=== PATIENT | male | born 1940 | race Caucasian/White ===

== ENCOUNTER 2016-09-06 09:11 | Outpatient (CLI) | payer MEDICARE, OTHER ==
[2016-09-06] MEDS ORDERED: BARIUM SULFATE 176 GM BOTTLE PO ONE (10:12)
[2016-09-06] MEDS ORDERED: BARIUM SULFATE 135 ML BOTTLE PO ONE (10:12)
== END 2016-09-06 09:12 | disposition home or self-care (01) ==
DX: K21.9 Gastro-esophageal reflux disease without esophagitis (principal); K22.8 Other specified diseases of esophagus
CPT/HCPCS: 74220; A9270

== ENCOUNTER 2016-09-29 09:00 | Outpatient (CLI) | payer MEDICARE, OTHER | END 2016-09-29 09:01 | disposition home or self-care (01) | DX: I10 Essential (primary) hypertension (principal); I25.10 Atherosclerotic heart disease of native coronary artery without angina pectoris; I48.91 Unspecified atrial fibrillation; C34.90 Malignant neoplasm of unspecified part of unspecified bronchus or lung; D12.6 Benign neoplasm of colon, unspecified ==

== ENCOUNTER 2017-02-23 09:58 | Outpatient (CLI) | payer MEDICARE, OTHER ==
[2017-02-23 10:50] LABS: ALBUMIN/GLOBULIN RATIO 1.4 (1.0-2.2); BILIRUBIN,TOTAL 0.8 mg/dL (0.2-1.0); BUN - BLOOD UREA NITROGEN 22 mg/dL (6-20); CALCIUM 9.1 mg/dL (8.5-10.3); CARBON DIOXIDE - CO2 30 mmol/L (21-32); CHLORIDE 105 mmol/L (101-111); CHOL/HDL RATIO 2.3 (<5.0); CHOLESTEROL 102 mg/dL; CREATININE 0.8 mg/dL (0.6-1.2); GFR - MDRD 94 (>89); GLUCOSE 122 mg/dL (70-100); HDL CHOLESTEROL 44 mg/dL; POTASSIUM 4.2 mmol/L (3.5-5.0); SODIUM 141 mmol/L (135-145); TOTAL PROTEIN 6.9 g/dL (6.7-8.2); TRIGLYCERIDES 74 mg/dL; VLDL CHOLESTEROL 15 mg/dL
== END 2017-02-23 09:59 | disposition home or self-care (01) ==
LOC: LAB 09:58
PROVIDERS: ATTEND Internal Medicine Cardiovascular Disease
DX: Z01.818 Encounter for other preprocedural examination (principal); I77.9 Disorder of arteries and arterioles, unspecified; I10 Essential (primary) hypertension; E78.2 Mixed hyperlipidemia
CPT/HCPCS: 36415; 80053; 80061

== ENCOUNTER 2017-07-18 09:46 | Outpatient (CLI) | payer MEDICARE, OTHER ==
[2017-07-18 10:30] LABS: CALCIUM 9.6 mg/dL (8.5-10.3); CREATININE 0.7 mg/dL (0.6-1.2); POTASSIUM 4.1 mmol/L (3.5-5.0)
== END 2017-07-18 09:47 | disposition home or self-care (01) ==
LOC: LAB 09:46
PROVIDERS: ATTEND Internal Medicine Cardiovascular Disease
DX: I77.810 Thoracic aortic ectasia (principal); Z95.1 Presence of aortocoronary bypass graft; I48.0 Paroxysmal atrial fibrillation; I10 Essential (primary) hypertension; I77.9 Disorder of arteries and arterioles, unspecified; E78.2 Mixed hyperlipidemia
CPT/HCPCS: 36415; 80048

== ENCOUNTER 2019-04-09 09:43 | Outpatient (CLI) | payer MEDICARE, OTHER ==
[2019-04-09 12:51] LABS: ALBUMIN 3.7 g/dL (3.2-5.5); ALBUMIN/GLOBULIN RATIO 1.2 (1.0-2.2); ALKALINE PHOSPHATASE 67 IU/L (42-121); ALT ALANINE AMINOTRANSFERASE 40 IU/L (10-60); AST ASPARTATE AMINOTRANSFERASE 36 IU/L (10-42); BILIRUBIN,TOTAL 0.4 mg/dL (0.2-1.0); BUN - BLOOD UREA NITROGEN 28 mg/dL (6-20); CALCIUM 8.9 mg/dL (8.5-10.3); CARBON DIOXIDE - CO2 26 mmol/L (21-32); CHLORIDE 109 mmol/L (101-111); CHOLESTEROL 113 mg/dL; CREATININE 0.8 mg/dL (0.6-1.2); GFR - MDRD 94 (>89); GLUCOSE 149 mg/dL (70-100); HDL CHOLESTEROL 48 mg/dL; LDL CHOLESTEROL,CALCULATED 54 mg/dL; SODIUM 143 mmol/L (135-145); TOTAL PROTEIN 6.8 g/dL (6.7-8.2); VLDL CHOLESTEROL 11 mg/dL
[2019-04-09 12:52] LABS: CHOL/HDL RATIO 2.4 (<5.0); LDL/HDL RATIO 1.1 (<3.6)
== END 2019-04-09 23:59 | disposition home or self-care (01) ==
LOC: LAB.WCP 09:43
PROVIDERS: ATTEND Internal Medicine Cardiovascular Disease
DX: I10 Essential (primary) hypertension (principal)
CPT/HCPCS: 36415; 80053; 80061; 83721

== ENCOUNTER 2019-04-28 14:03 | Outpatient (CLI) | payer MEDICARE, OTHER | END 2019-04-28 23:59 | disposition home or self-care (01) | LOC: LAB.WCP 14:03 | PROVIDERS: ATTEND Specialist | DX: C61 Malignant neoplasm of prostate (principal) | CPT/HCPCS: 36415; 84153 ==

== ENCOUNTER 2019-05-05 13:03 | Outpatient (CLI) | payer MEDICARE, OTHER | END 2019-05-05 13:04 | disposition short-term general hospital (02) | LOC: EMS 13:03 | PROVIDERS: ATTEND Surgery | DX: R06.02 Shortness of breath (principal); R42 Dizziness and giddiness | CPT/HCPCS: A0425; A0429 ==

== ENCOUNTER 2019-05-28 11:39 | Outpatient (CLI) | payer MEDICARE, OTHER ==
[2019-05-28] MEDS ORDERED: IOVERSOL 320 100 ML VIAL IVP ONE ×2 (12:34→12:50)
--- NOTE | 2019-05-28 14:41 | CT Report ---
Reason: RT CAROTID STENOSIS Procedure Date: 05/28/2019 Accession Number: [id number] / [id number] Procedure: CT - ANGIO NECK W CPT Code: FULL RESULT: EXAM: CT ANGIOGRAM NECK EXAM DATE: 05/28/2019 12:44 PM. CLINICAL HISTORY: Right CAROTID STENOSIS. COMPARISON: None. TECHNIQUE: Routine axial helical imaging was performed from the skull base through the aortic arch. Reconstructions: Routine multiplanar 3D MIP reconstructions. IV Contrast: OPTI 320 80ML. Evaluation of arterial stenosis is based on a NASCET method of measurement. In accordance with CT protocol optimization, one or more of the following dose reduction techniques were utilized for this exam: automated exposure control, adjustment of mA and/or KV based on patient size, or use of iterative reconstructive technique. FINDINGS: Right Carotid: The proximal to mid common carotid is normal in caliber. There is dense calcification involving distal CCA and extending into the proximal right ICA with approximately 90% stenosis of the proximal right ICA (measurement difficult due to dense calcification). There is severe narrowing of the right ECA origin as well. Left Carotid: The left common carotid artery is normal in caliber. There is eccentric calcification of the distal left CCA and proximal ICA. There is 30% narrowing of the proximal left ICA. Vertebrals: The vertebrobasilar system shows no stenoses. Intracranial Circulation: There are calcifications of bilateral carotid siphons. There is moderate narrowing of right cavernous ICA. There is mild narrowing of left cavernous ICA. Intracranal vessels otherwise unremarkable. No high-grade intracranial stenosis. No aneurysm. Posterior communicating arteries are not visualized. Other: Emphysematous changes at bilateral lung apices. Mild degenerative changes of cervical spine. Sternal wires. Soft tissues of neck unremarkable. IMPRESSION: 1. Approximately 90% proximal right ICA stenosis. 2. 30% proximal left ICA stenosis. 3. No vertebral stenosis. 4. Moderate narrowing of right cavernous ICA and mild narrowing of left cavernous ICA segments. 5. Emphysema. RADIA
== END 2019-05-28 11:40 | disposition home or self-care (01) ==
LOC: DI 11:39
PROVIDERS: ATTEND Surgery Vascular Surgery
DX: I65.21 Occlusion and stenosis of right carotid artery (principal); I65.22 Occlusion and stenosis of left carotid artery; J43.9 Emphysema, unspecified
CPT/HCPCS: 70498; Q9967

== ENCOUNTER 2019-05-29 08:00 | Outpatient (CLI) | payer MEDICARE, OTHER | END 2019-05-29 23:59 | disposition home or self-care (01) | LOC: LAB.WCP 08:00 | PROVIDERS: ATTEND Specialist | DX: C61 Malignant neoplasm of prostate (principal) | CPT/HCPCS: 36415; 84153 ==

== ENCOUNTER 2019-07-15 16:30 | Outpatient (CLI) | payer MEDICARE, OTHER | END 2019-07-15 23:59 | disposition critical access hospital (66) | LOC: EMS 16:30 | PROVIDERS: ATTEND Surgery | DX: R47.81 Slurred speech (principal); R47.9 Unspecified speech disturbances | CPT/HCPCS: A0425; A0427 ==

== ENCOUNTER 2019-07-15 16:50 | Observation (INO) | payer MEDICARE, OTHER ==
--- NOTE | 2019-07-15 17:00 | ED Physician Documentation ---
PD HPI FOCAL NEURO - Stated complaint Stated Complaint: POSS CVA - History obtained from History obtained from: Patient, EMS - History of Present Illness Timing - onset: Today (79-year-old gentleman with history of coronary disease and CABG, presume A. fib with pacemaker in place on Xarelto usually. He was off the Xarelto for 3 days because today he had prostate seeds placed by Dr. Danielle at [facility]. That was this morning. Suddenly at 4:00 he started to have intermittent speech difficulties and noticed both legs tingling below the knees symmetrically.) Review of Systems Ten Systems: 10 systems reviewed and negative Constitutional: denies: Fever, Chills Cardiac: denies: Chest pain / pressure, Palpitations Respiratory: denies: Dyspnea, Cough PD PAST MEDICAL HISTORY - Past Medical History Cardiovascular: High cholesterol, Coronary artery disease, Atrial fibrillation, Other Respiratory: Pneumonia, Other Endocrine/Autoimmune: Type 2 diabetes GI: GERD : Benign prostate hypertrophy, Kidney stones HEENT: None Psych: None Musculoskeletal: None Derm: None - Past Surgical History General: Cholecystectomy, Appendectomy Cardiovascular: Lobectomy, Other HEENT: Cataracts - Present Medications Home Medications: Ambulatory Orders Medication Instructions Recorded Confirmed Cetirizine [ZyrTEC] 10 mg PO DAILY 04/16/13 05/14/19 Losartan Potassium [Cozaar] 25 mg PO DAILY 04/16/13 05/14/19 Rivaroxaban [Xarelto] 20 mg PO DAILY 01/15/14 05/14/19 Tamsulosin HCl [Flomax] 0.4 mg PO BID 01/16/14 05/14/19 Atorvastatin Calcium [Lipitor] 80 mg PO DAILY 10/21/14 05/14/19 C,E,Zinc,Copper 24/Om3/Lut/Katja 1 each PO DAILY 10/21/14 05/14/19 [Ocuvite Softgel] Chondroitin Sulfate A Sodium 1,200 mg PO DAILY 10/21/14 05/14/19 [Chondroitin Sulfate] amLODIPine [Norvasc] 5 mg PO DAILY 10/21/14 05/14/19 Aspirin [Adult Low Dose Aspirin EC] 81 mg PO DAILY 02/03/15 05/14/19 [place]-3S/Dha/Epa/Fish Oil [Fish 1 each PO DAILY 09/17/15 05/14/19 Oil 1,200 mg Softgel] Magnesium 250 mg PO BID 06/21/16 05/14/19 Albuterol Sulf [Ventolin Hfa 4 puffs INH DAILY 07/18/17 05/14/19 Inhaler] Ascorbic Acid [Vitamin C] 1 tab PO DAILY 07/18/17 05/14/19 Cholecalciferol (Vitamin D3) 1 cap PO DAILY 07/18/17 05/14/19 [Vitamin D3] Glucosamine HCl/Chondroitin [place] 1 tab PO DAILY 07/18/17 05/14/19 [Endur-Flex Sr Tablet] Iron Ag,Ps/C/Fa6/B12/Zn/SA/Sto 1 tab PO DAILY 07/18/17 05/14/19 [Niferex Tablet] Multivitamin [Multiple Vitamins] 1 tab PO DAILY 07/18/17 05/14/19 Pantoprazole [Protonix] 1 tab PO DAILY 07/18/17 05/14/19 Ubidecarenone [Co Q-10] 1 cap PO DAILY 07/18/17 05/14/19 - Allergies Allergies/Adverse Reactions: Allergies Allergy/AdvReac Type Severity Reaction Status Date / Time hydrocodone bitartrate * Allergy shakes, Verified 01/08/19 10:50 [From Vicodin] halucinasions - Social History Does the pt smoke?: No Smoking Status: Never smoker - Family History Family history: reports: Non contributory PD ED PE NORMAL - Vitals Vital signs reviewed: Yes - General General: Alert and oriented X 3, No acute distress - HEENT HEENT: PERRL, EOMI - Neck Neck: Supple, no meningeal sign, No bony TTP - Cardiac Cardiac: RRR, No murmur - Respiratory Respiratory: No respiratory distress, Clear bilaterally - Abdomen Abdomen: Non tender - Back Back: No CVA TTP, No spinal TTP - Derm Derm: Normal color, Warm and dry - Neuro Neuro: Alert and oriented X 3, Normal speech NIHSS - Time Time: 16:55 - Level of Consciousness Level of consciousness: (0) Alert, Keenly responsive LOC Questions: (0) Answers both Q's correct LOC Commands: (0) Performs both correctly - Gaze Best Gaze: (0) Normal - Visual Visual: (0) No loss - Facial Palsy Facial Palsy: (1) Minor paralysis (v mild right) - Motor Arms (both separate) Motor Arm (right): (0) No drift Motor Arm (left): (0) No drift - Motor Legs (both separate) Motor Leg (right): (0) No drift Motor Leg (left): (0) No drift - Limb Ataxia Limb Ataxia: (0) Absent - Sensory Sensory: (0) Normal - Best Language Best Language: (0) No aphasia - Dysarthria Dysarthria: (1) Uidu-jy-vpfhbvdq dysarthria (mild trouble with "[place]") - Extinction and Inattention (formally neg Extinction and inattention: (0) No abnormality - Total Score/Results Total Score/Result: 2 Results - Vitals Vitals: Vital Signs - 24 hr 07/15/19 07/15/19 17:12 17:33 Temperature 37.3 C Heart Rate 61 61 Respiratory 18 18 Rate Blood Pressure 134/55 H 147/70 H O2 Saturation 98 97 Oxygen O2 Source Room air - EKG (time done) 1712 Rate: Rate (enter#) (60) Rhythm: NSR (with PAC) [place]: Normal Intervals: LBBB QRS: Normal Ischemia: Normal ST segments Computer interpretation: Agree with computer - Labs Labs: Laboratory Tests 07/15/19 07/15/19 07/15/19 17:20 17:20 17:20 WBC 6.6 RBC 3.05 L Hgb 10.1 L Hct 29.9 L MCV 98.0 H MCH 33.1 H MCHC 33.8 RDW 12.6 Plt Count 234 MPV 9.7 Neut # (Auto) 4.4 Lymph # (Auto) 1.4 L [place] # (Auto) 0.6 Eos # (Auto) 0.1 Baso # (Auto) 0.0 Absolute Nucleated RBC 0.00 Nucleated RBC % 0.0 PT 13.0 H INR 1.2 Sodium 138 Potassium 3.9 Chloride 102 Carbon Dioxide 27 Anion Gap 9.0 BUN 27 H Creatinine 0.7 Estimated GFR (MDRD) 109 Glucose 125 H Calcium 9.0 Total Bilirubin 0.6 AST 28 ALT 27 Alkaline Phosphatase 52 Total Protein 6.7 Albumin 4.0 Globulin 2.7 Albumin/Globulin Ratio 1.5 Lipase 42 PD MEDICAL DECISION MAKING - ED course ED course: 79-year-old gentleman presents with strokelike symptoms, it sounds like they are kind of waxing and waning, no sensory findings, just very mild dysarthria and a very subtle right facial droop. Case test discussed by phone with Dr. Elizabeth at [facility] [place]. Given that he had a surgical procedure today and the stroke scale is very low and seems to be going away he recommended against TPA, just routine stroke management. He did recommend for aspirin. Recommended routine resuming anticoagulation in 1 week. On return from CT at about 5:10 PM his a aphasia had become much worse. Still no weakness in the periphery and the facial droop had not changed. The net technical architect noted that he scanned him recently and had significant stenoses in the carotids previously. Tele-stroke neurologist was re-paged for further discussion. Formal read of CT angiography of the neck dated May 28 of this year, approximately 90% proximal right ICA stenosis, 30% proximal left ICA stenosis, no vertebral stenosis, moderate narrowing of right cavernous ICA and mild narrowing of ICA. Emphysema was also noted. Spoke with Dr. Elizabeth again at 5:20 PM. Discussed the above prior CT angiography. Since is the contralateral side with the tight stenosis he did not recommend any changes to the above plan. Still no TPA. It does not look to my eye like there is a large vessel occlusion in the brain today. Awaiting formal reads. Departure - Departure Disposition: ED Place in Observation Clinical Impression: Cerebrovascular accident (CVA) Qualifiers: CVA mechanism: unspecified Qualified Code(s): I63.9 - Cerebral infarction, unspecified Condition: Fair
[2019-07-15] MEDS ORDERED: IOVERSOL 320 100 ML VIAL IVP ONE ×2 (17:13→17:14)
[2019-07-15] MEDS ORDERED: ASPIRIN 300 MG SUPP PR STA (17:21)
[2019-07-15 17:30] LABS: BASOPHILS % (AUTO) 0.5 %; EOSINOPHILS # (AUTO) 0.1 10^3/uL (0.0-0.7); EOSINOPHILS % (AUTO) 1.2 %; HGB - HEMOGLOBIN 10.1 g/dL (14.0-18.0); LYMPHOCYTES # (AUTO) 1.4 10^3/uL (1.5-3.5); LYMPHOCYTES % (AUTO) 21.4 %; MEAN CORPUSCULAR HEMOGLOBIN 33.1 pg (27.0-31.0); MEAN CORPUSCULAR HGB CONC 33.8 g/dL (32.0-36.0); MEAN PLATELET VOLUME 9.7 fL (7.4-11.4); MONOCYTES # (AUTO) 0.6 10^3/uL (0.0-1.0); MONOCYTES % (AUTO) 9.3 %; NEUTROPHILS # (AUTO) 4.4 10^3/uL (1.5-6.6); NEUTROPHILS % (AUTO) 67.3 %; PLT - PLATELET COUNT 234 10^3/uL (130-450); RED BLOOD COUNT 3.05 10^6/uL (4.70-6.10); RED CELL DISTRIBUTION WIDTH 12.6 % (12.0-15.0); WHITE BLOOD COUNT 6.6 x10^3/uL (4.8-10.8)
--- NOTE | 2019-07-15 17:34 | CT Report ---
Reason: CVA sx, speech diff Procedure Date: 07/15/2019 Accession Number: [id number] / [id number] Procedure: CT - Head W/O Stroke Protocol CPT Code: Final Report FULL RESULT: EXAM: CT HEAD EXAM DATE: 07/15/2019 05:06 PM. CLINICAL HISTORY: CVA sx, speech diff. COMPARISON: NECK ANGIO 05/28/2019 12:40 PM. TECHNIQUE: Multiaxial CT images were obtained from the foramen magnum to the vertex. Reformats: Sagittal and coronal. IV contrast: None. In accordance with CT protocol optimization, one or more of the following dose reduction techniques were utilized for this exam: automated exposure control, adjustment of mA and/or KV based on patient size, or use of iterative reconstructive technique. FINDINGS: Parenchyma: No intraparenchymal hemorrhage. No evidence of mass, midline shift, or CT findings of acute infarction. Beck-white differentiation is distinct. Moderate patchy periventricular hypodensity is noted, nonspecific but most likely due to chronic microvascular ischemia. Old lacunar type infarcts are visualized in the basal ganglia. Extraaxial Spaces: Normal for age. No subdural or epidural collections identified. Ventricles: Normal in size and position. Sinuses and Orbits: Imaged paranasal sinuses, orbits, and mastoids show no significant abnormality. Changes of cataract extraction are noted bilaterally. Bones: No evidence of fracture or calvarial defect. Other: Vascular calcification is visualized in the cavernous segments of the bilateral ICAs and proximal vertebral arteries. IMPRESSION: 1. No CT evidence of acute infarct or hemorrhage. CT is insensitive for detection of acute infarct. RADIA The critical test notification system was initiated by Dr. Irasema Roche at 05:13 PM on 07/15/2019. The above critical test findings were discussed with Butch Garcia by Dr. Irasema Roche at 05:16 PM on 07/15/2019.
[2019-07-15 17:37] LABS: INR 1.2 (0.8-1.2)
[2019-07-15] MEDS ORDERED: SODIUM CHLORIDE 0.9% 1,000 ML IV ONE (17:39)
--- NOTE | 2019-07-15 17:42 | CT Report ---
Reason: CVA sx, speech diff Procedure Date: 07/15/2019 Accession Number: [id number] / [id number] Procedure: CT - ANGIO HEAD W/WO CPT Code: Final Report FULL RESULT: EXAM: CT ANGIOGRAM HEAD AND NECK. CT OF THE HEAD WITH CONTRAST EXAM DATE: 07/15/2019 05:10 PM. CLINICAL HISTORY: CVA sx, speech diff. COMPARISON: NECK ANGIO 05/28/2019 12:40 PM HEAD ANGIO 07/15/2019 5:02 PM. TECHNIQUE: Routine axial helical CTA imaging was performed from the aortic arch through the [place] of [place]. Imaging was obtained through the brain following demonstration of contrast. Reconstructions: Routine multiplanar 3D MIP reconstructions. IV contrast: Optiray 320, 80 mL. NASCET Criteria are used for stenosis measurements. In accordance with CT protocol optimization, one or more of the following dose reduction techniques were utilized for this exam: automated exposure control, adjustment of mA and/or KV based on patient size, or use of iterative reconstructive technique. FINDINGS: CT head: Noncontrast head CT reported separately. No pathologic enhancement. CT ANGIOGRAM EXTRACRANIAL CIRCULATION: Atherosclerotic calcification is visualized throughout the aortic arch. The left vertebral artery arises directly from the aorta, a normal variant. Calcification has been left at the origins of the great vessels without evidence of significant stenosis. Right Carotid: The proximal to mid common carotid artery is normal in caliber. As before, there is dense calcification involving the carotid bifurcation, significantly limiting visualization of the arterial lumen. Appearance is unchanged. Left Carotid: The left common carotid artery is normal in caliber. Atherosclerotic calcification is again visualized in the distal left CCA and proximal ICA producing narrowing of less than 50% by NASCET criteria. Vertebrals: The vertebral arteries are normal in caliber with no evidence of significant stenosis or dissection. CT ANGIOGRAM INTRACRANIAL CIRCULATION: Vascular calcification is visualized in the cavernous segments of the bilateral ICAs and proximal vertebral arteries. This produces multifocal irregularity and stable narrowing of the cavernous ICAs. No high-grade stenosis is visualized. The vertebral and basilar arteries are widely patent. The anterior, middle and posterior cerebral arteries are normal in caliber. There is no high-grade stenosis, thrombosis or aneurysm in the intracranial vasculature. The dural venous sinuses are patent. Other: Changes of centrilobular and paraseptal emphysema are noted. Postsurgical changes are noted in the left lung. IMPRESSION: CT ANGIOGRAM NECK: 1. No significant interval change compared to recent prior CTA. 2. Stable dense calcification and narrowing of the right proximal ICA. 3. Stable mild narrowing of the left proximal ICA. 4. No evidence of carotid or vertebral artery dissection. CT ANGIOGRAM HEAD: 1. No central large vessel occlusion. 2. No significant interval change. RADIA
[2019-07-15 17:43] LABS: ALBUMIN/GLOBULIN RATIO 1.5 (1.0-2.2); BILIRUBIN,TOTAL 0.6 mg/dL (0.2-1.0); CREATININE 0.7 mg/dL (0.6-1.2); TOTAL PROTEIN 6.7 g/dL (6.7-8.2)
--- NOTE | 2019-07-15 17:43 | CT Report ---
Reason: CVA sx, speech diff Procedure Date: 07/15/2019 Accession Number: [id number] / [id number] Procedure: CT - ANGIO NECK W CPT Code: Final Report FULL RESULT: EXAM: CT ANGIOGRAM HEAD AND NECK. CT OF THE HEAD WITH CONTRAST EXAM DATE: 07/15/2019 05:10 PM. CLINICAL HISTORY: CVA sx, speech diff. COMPARISON: NECK ANGIO 05/28/2019 12:40 PM HEAD ANGIO 07/15/2019 5:02 PM. TECHNIQUE: Routine axial helical CTA imaging was performed from the aortic arch through the [place] of [place]. Imaging was obtained through the brain following demonstration of contrast. Reconstructions: Routine multiplanar 3D MIP reconstructions. IV contrast: Optiray 320, 80 mL. NASCET Criteria are used for stenosis measurements. In accordance with CT protocol optimization, one or more of the following dose reduction techniques were utilized for this exam: automated exposure control, adjustment of mA and/or KV based on patient size, or use of iterative reconstructive technique. FINDINGS: CT head: Noncontrast head CT reported separately. No pathologic enhancement. CT ANGIOGRAM EXTRACRANIAL CIRCULATION: Atherosclerotic calcification is visualized throughout the aortic arch. The left vertebral artery arises directly from the aorta, a normal variant. Calcification has been left at the origins of the great vessels without evidence of significant stenosis. Right Carotid: The proximal to mid common carotid artery is normal in caliber. As before, there is dense calcification involving the carotid bifurcation, significantly limiting visualization of the arterial lumen. Appearance is unchanged. Left Carotid: The left common carotid artery is normal in caliber. Atherosclerotic calcification is again visualized in the distal left CCA and proximal ICA producing narrowing of less than 50% by NASCET criteria. Vertebrals: The vertebral arteries are normal in caliber with no evidence of significant stenosis or dissection. CT ANGIOGRAM INTRACRANIAL CIRCULATION: Vascular calcification is visualized in the cavernous segments of the bilateral ICAs and proximal vertebral arteries. This produces multifocal irregularity and stable narrowing of the cavernous ICAs. No high-grade stenosis is visualized. The vertebral and basilar arteries are widely patent. The anterior, middle and posterior cerebral arteries are normal in caliber. There is no high-grade stenosis, thrombosis or aneurysm in the intracranial vasculature. The dural venous sinuses are patent. Other: Changes of centrilobular and paraseptal emphysema are noted. Postsurgical changes are noted in the left lung. IMPRESSION: CT ANGIOGRAM NECK: 1. No significant interval change compared to recent prior CTA. 2. Stable dense calcification and narrowing of the right proximal ICA. 3. Stable mild narrowing of the left proximal ICA. 4. No evidence of carotid or vertebral artery dissection. CT ANGIOGRAM HEAD: 1. No central large vessel occlusion. 2. No significant interval change. RADIA
[2019-07-15] MEDS ORDERED: ONDANSETRON 4 MG/2 ML VIAL IVP PRN (18:38)
[2019-07-15] MEDS ORDERED: oxyCODONE 5 MG TABLET PO PRN (18:38)
[2019-07-15] MEDS ORDERED: ACETAMINOPHEN 325 MG TABLET PO PRN (18:38)
[2019-07-15] MEDS ORDERED: ONDANSETRON ODT 4 MG TABLET TL PRN (18:38)
--- NOTE | 2019-07-15 19:49 | HISTORY & PHYSICAL EXAMINATION ---
Chief Complaint - Chief Complaint Chief Complaint: Slurred Speech History of Present Illness - Admitted From Admitted From:: Home - History Obtained From Records Reviewed: Yes History obtained from: Patient, ER Physician, EMR - History of Present Illness HPI Comment/Other: This is a 79-year-old male with a past medical history significant for coronary artery disease status post CABG, atrial fibrillation status post pacemaker and on Xarelto, prostate cancer, hypertension who presents today complaining of slurred speech that began at 4 PM. The patient was diagnosed with prostate cancer this past summer and was seeing his urologist today for implantation of brachii therapy seeds. His Xarelto had been held for the past 3 days for this procedure. The procedure was completed at 2 PM and he returned home shortly after. At around 4 PM he noticed his speech was slurred and so did his . He reports he had no other symptoms at that time and denied any focal weakness. He states on his way to the hospital via ambulance, he felt numbness in both of his legs below the knees which have since resolved. His slurred speech lasted for around 15 minutes. In the emergency department, he had another brief episode of slurred speech lasting around 5 to 10 minutes while he was getting a CT of the head. He reports no prior history of stroke or TIA. He states he had an ultrasound of his carotid arteries with his project coordinator and he was referred to a surgeon at [place] for right carotid stenosis and that the stenosis was quite severe levin pposedly. When the surgeon saw him, a repeat ultrasound was performed the patient tells me that he was told the stenosis was not severe and that he does not need surgery. He then underwent a CTA of the neck last May which showed 90% stenosis of the proximal right ICA. These results were once again faxed back to the surgeon at [place] but he has not heard back from them yet. He denies fever, chills, chest pain, weakness, nausea, vomiting. He states he is supposed be taking ciprofloxacin this evening that was prescribed by his urologist for an infection. He cannot recall the dose of the ciprofloxacin. In the emergency department, he underwent a CT of the head which was negative f or infarct or hemorrhage. He underwent a CTA of the neck and head which showed no change compared to prior imaging. Neurology at [facility] was contacted and recommended against alteplase. They recommended to hold his Xarelto for 1 week and continue with aspirin. He will be admitted for further management. I did discuss with the patient regarding goals of care and he states that he is a DNR. History - Past Medical History Cardiovascular: reports: High cholesterol, Coronary artery disease, Atrial fibrillation, Other (Pacemaker) Respiratory: reports: Pneumonia, Other Endocrine/Autoimmune: reports: Type 2 diabetes GI: reports: GERD : reports: Benign prostate hypertrophy, Kidney stones HEENT: reports: None Psych: reports: None Musculoskeletal: reports: None Derm: reports: None MRSA Hx?: No Other Past Medical History: Prostate Cancer, Lung cancer - Past Surgical History General: reports: Cholecystectomy, Appendectomy Cardiovascular: reports: Lobectomy, Other HEENT: reports: Cataracts - Family & Social History Family History Comment/Other: He reports his mother had a stroke in her early 50s which she from. He also reports that his grandmother had cardiac problems. He denies any other family history. Living arrangement: At home Living Situation: With spouse/s.o. Social History Notes: He lives alone with his . 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 He smoked 2 cigars a day for approximately 20 years but quit quite a few years ago. He drinks alcohol rarely and only on special occasions. Meds/Allgy - Home Medications Home Medications: Ambulatory Orders Medication Instructions Recorded Confirmed Cetirizine [ZyrTEC] 10 mg PO DAILY 04/16/13 05/14/19 Losartan Potassium [Cozaar] 25 mg PO DAILY 04/16/13 05/14/19 Rivaroxaban [Xarelto] 20 mg PO DAILYWM 01/15/14 07/15/19 Tamsulosin HCl [Flomax] 0.4 mg PO BID 01/16/14 07/15/19 Atorvastatin Calcium [Lipitor] 80 mg PO QPM 10/21/14 07/15/19 C,E,Zinc,Copper 24/Om3/Lut/Katja 1 each PO DAILY 10/21/14 05/14/19 [Ocuvite Softgel] Chondroitin Sulfate A Sodium 1,200 mg PO DAILY 10/21/14 05/14/19 [Chondroitin Sulfate] amLODIPine [Norvasc] 5 mg PO DAILY 10/21/14 07/15/19 Aspirin [Adult Low Dose Aspirin EC] 81 mg PO DAILY 02/03/15 07/15/19 [place]-3S/Dha/Epa/Fish Oil [Fish 1 each PO DAILY 09/17/15 05/14/19 Oil 1,200 mg Softgel] Magnesium 250 mg PO BID 06/21/16 05/14/19 Albuterol Sulf [Ventolin Hfa 4 puffs INH DAILY 07/18/17 05/14/19 Inhaler] Ascorbic Acid [Vitamin C] 1 tab PO DAILY 07/18/17 05/14/19 Cholecalciferol (Vitamin D3) 1 cap PO DAILY 07/18/17 05/14/19 [Vitamin D3] Glucosamine HCl/Chondroitin Levin 1 tab PO DAILY 07/18/17 05/14/19 [Endur-Flex Sr Tablet] Iron Ag,Ps/C/Fa6/B12/Zn/SA/Sto 1 tab PO DAILY 07/18/17 05/14/19 [Niferex Tablet] Multivitamin [Multiple Vitamins] 1 tab PO DAILY 07/18/17 05/14/19 Pantoprazole [Protonix] 40 mg PO DAILY 07/18/17 07/15/19 Ubidecarenone [Co Q-10] 1 cap PO DAILY 07/18/17 05/14/19 Metoprolol Tartrate 12.5 mg PO BID 07/15/19 07/15/19 Telmisartan [Micardis] 40 mg PO DAILY 07/15/19 07/15/19 - Allergies Allergies/Adverse Reactions: Allergies Allergy/AdvReac Type Severity Reaction Status Date / Time hydrocodone bitartrate * Allergy shaisaura, Verified 01/08/19 10:50 [From Vicodin] halucinasions Review of Systems - Constitutional Constitutional: denies: Fatigue, Fever, Chills - Eyes Eyes: denies: Blurred vision - Cardiovascular Cariovascular: denies: Chest pain, Exertional dyspnea, Decr. exercise tolerance - Respiratory Respiratory: denies: Cough, SOB at rest, SOB with exertion - Gastrointestinal Gastrointestinal: denies: Abdominal pain, Nausea, Vomiting - Genitourinary Genitourinary: denies: Dysuria, Frequency, Urgency - Musculoskeletal Musculoskeletal: denies: Muscle pain, Limited range of motion, Muscle weakness - Integumentary Integumentary: denies: Rash - Neurological Neurological: reports: Headache, Numbness, Slurred speech. denies: General weakness, Focal weakness - All Other Systems All Other Systems: reports: Reviewed and negative Prior Level of Functionality: He is independent with ADL's. Exam - Vital Signs Reviewed Vital Signs: Yes Vital Signs: Vital Signs x48h Temp Pulse Pulse Resp BP BP Pulse Ox 07/15/19 19:28 36.5 C 72 18 173/92 H 98 07/15/19 18:46 65 18 142/76 H 98 07/15/19 18:13 62 18 147/74 H 97 07/15/19 17:33 61 18 147/70 H 97 07/15/19 17:12 37.3 C 61 18 134/55 H 98 - Physical Exam General Appearance: positive: No acute distress, Alert Eyes Bilateral: positive: Normal inspection ENT: positive: ENT inspection nml Neck: positive: Nml inspection Respiratory: positive: No respiratory distress. negative: Wheezes, Rales, Rhonchi Cardiovascular: positive: Regular rate & rhythm, PMI displaced laterally, Systolic murmur. negative: Tachycardia, Bradycardia, Diastolic murmur Abdomen: positive: Non-tender. negative: No distention, Tenderness, Guarding, Rebound Skin: positive: No rash, Warm, Dry Extremities: positive: Full ROM, No pedal edema Neurologic/Psychiatric: positive: Oriented x3, CN's nml (2-12), Motor nml, Sensation nml. negative: Disoriented to person, Disoriented to place, Disoriented to time, Weakness, Facial droop, Slurred/abnml speech Conclusion/Plan - Problem List (1) TIA (transient ischemic attack) Conclusion/Plan: Presented with slurred speech and questionable right-sided facial droop. He does have atrial fibrillation and has been off anticoagulation in order to have brachii therapy treatment for his prostate cancer today. CTA of the head and neck did not show any new stenoses compared to prior imaging. He does have a known 90% stenosis of the right proximal ICA. Neurology at [facility] was contacted and they recommended no TPA. They also recommended to hold his Xarelto for 1 week and continue monotherapy with aspirin at this time. Will resume his antihypertensives as his deficits have resolved. We will continue aspirin and Lipitor. Obtain an MRI of the brain and echocardiogram. Will ask PT and OT to evaluate the patient. Neurochecks. (2) Atrial fibrillation Conclusion/Plan: He is currently in a sinus rhythm and is rate controlled. Continue beta richard. He has been off of Xarelto for 3 days and neurology recommends resuming this in one week. Qualifiers: Atrial fibrillation type: paroxysmal Qualified Code(s): I48.0 - Paroxysmal atrial fibrillation (3) Coronary artery disease Conclusion/Plan: He has known coronary artery disease with a CABG that occurred nearly 20 years ago. We will continue his home aspirin and Lipitor. Qualifiers: Coronary Disease-Associated Artery/Lesion type: bypass graft [place] vs. transplanted heart: unspecified whether [place] or transplanted heart Associated angina: without angina Qualified Code(s): I25.810 - Atherosclerosis of coronary artery bypass graft(s) without angina pectoris (4) Prostate cancer Conclusion/Plan: Is a recent diagnosis for him and biopsy revealed adenocarcinoma the prostate with a Heide score of 9. He underwent Brachytherapy today with Dr. Danielle at [facility]. He is taking Ciprofloxacin as recommended by his Urologist which we will continue. He can continue outpatient follow-up. (5) Hypertension Conclusion/Plan: He is hypertensive in the 150's and we will resume his home antihypertensives given his symptoms have resolved and this is likely a TIA. Qualifiers: Hypertension type: essential hypertension Qualified Code(s): I10 - Essential (primary) hypertension - Lab Results Lab results reviewed: Yes Fish Bones: 07/15/19 17:20 07/15/19 17:20 - Diagnostic Imaging Results Diagnostic Imaging Results: positive: Final report reviewed - EKG Results EKG Interpreted Independently: Yes EKG Findings: EKG reveals sinus rhythm with a left bundle branch block. Core Measures - Anticipated LOS I expect patient to be DC'd or transferred within 96 hours.: Yes - Issues Hospital Issues and Management Plan: Patient with slurred speech and right facial droop with concern for TIA/CVA. Will obtain MRI and further stroke work-up. - DVT/VTE - Prophylaxis VTE/DVT Device ordered at admit?: Yes VTE/DVT Prophylaxis med ordered at admit?: No Not Ordered - Medical Reason: Not indicated
[2019-07-15] MEDS ORDERED: ATORVASTATIN 40 MG TABLET PO SCH (21:00)
[2019-07-15] MEDS: SODIUM CHLORIDE FLUSH 0.9% 10 ML SYRINGE IVP PRN (21:09)
[2019-07-15] MEDS: CIPROFLOXACIN 250 MG TABLET PO SCH (21:09)
[2019-07-15] MEDS: SODIUM CHLORIDE FLUSH 0.9% 10 ML SYRINGE IVP SCH (23:46)
[2019-07-16 05:01] LABS: BASOPHILS % (AUTO) 0.2 %; EOSINOPHILS # (AUTO) 0.1 10^3/uL (0.0-0.7); EOSINOPHILS % (AUTO) 1.3 %; HGB - HEMOGLOBIN 9.9 g/dL (14.0-18.0); LYMPHOCYTES # (AUTO) 1.2 10^3/uL (1.5-3.5); LYMPHOCYTES % (AUTO) 14.8 %; MEAN CORPUSCULAR HEMOGLOBIN 32.7 pg (27.0-31.0); MEAN CORPUSCULAR HGB CONC 33.6 g/dL (32.0-36.0); MEAN CORPUSCULAR VOLUME 97.4 fL (80.0-94.0); MEAN PLATELET VOLUME 9.7 fL (7.4-11.4); MONOCYTES # (AUTO) 0.9 10^3/uL (0.0-1.0); MONOCYTES % (AUTO) 10.6 %; NEUTROPHILS % (AUTO) 72.7 %; PLT - PLATELET COUNT 218 10^3/uL (130-450); RED BLOOD COUNT 3.03 10^6/uL (4.70-6.10); RED CELL DISTRIBUTION WIDTH 12.7 % (12.0-15.0); WHITE BLOOD COUNT 8.2 x10^3/uL (4.8-10.8)
[2019-07-16 05:26] LABS: CALCIUM 9.1 mg/dL (8.5-10.3); CREATININE 0.7 mg/dL (0.6-1.2)
[2019-07-16] MEDS ORDERED: ASPIRIN 325 MG TABLET PO SCH (08:00)
[2019-07-16] MEDS: CIPROFLOXACIN 250 MG TABLET PO SCH (08:52)
[2019-07-16] MEDS: SODIUM CHLORIDE FLUSH 0.9% 10 ML SYRINGE IVP SCH ×2 (08:53→16:18)
[2019-07-16] MEDS ORDERED: METOPROLOL TARTRATE 25 MG TABLET PO SCH (09:00)
[2019-07-16] MEDS ORDERED: amLODIPine 5 MG TABLET PO SCH (09:00)
[2019-07-16] MEDS ORDERED: LOSARTAN 50 MG TABLET PO SCH (09:00)
[2019-07-16 15:30] VITALS: BP 109/68
--- NOTE | 2019-07-16 15:57 | Discharge Plan ---
Discharge Plan Problem Reviewed?: Yes Disposition: Home, Self Care Condition: Stable Prescriptions: Aspirin 325 mg PO DAILY #7 tablet Diet: Regular Activity Restrictions: Activity as Tolerated Shower Restrictions: No (fall precaution) Instruction Topics: Aspirin ASA chewable tablets, TIA Health Concerns: TIA Plan of Treatment: your slurred speech was resolved. pt has no focal neurological deficits. Your repeated CT of head, CTA of head, neck, ECHO has unremarkable on acute finding and stable. Unfortunately MRI of brain can not be done due to your pacemaker. Neurologist in [place] recommend you hold your Xarelto for one week, start on Aspirin, after one week, resume your home meds as the scheduled. Care Goals: stabilization and improvement of your medical condition. Assessment: discuss the care plan with you and answer your questions. you agree the care plan. Additional Instructions or Follow Up instructions: you may followup your PCP in one week, followup your surgeon, urologist, intervention radiologist as your schedule. Should your symptoms return or worsen, you may present ER or call 911 for help. No Smoking: If you smoke, Please STOP! Call for help. Follow-up with: Livan Morrow MD [Primary Care Provider] -
[2019-07-16] MEDS: SODIUM CHLORIDE FLUSH 0.9% 10 ML SYRINGE IVP PRN (16:18)
--- NOTE | 2019-07-16 16:42 | CT Report ---
Reason: over 24 hours after TIA. pt can not have MRI Procedure Date: 07/16/2019 Accession Number: [id number] / [id number] Procedure: CT - HEAD WO CPT Code: Final Report FULL RESULT: EXAM:CT HEAD EXAM DATE: 07/16/2019 02:39 PM. CLINICAL HISTORY: Over 24 hours after TIA. pt can not have MRI. COMPARISON: HEAD W/O 07/16/2019 2:28 PM. TECHNIQUE: Multiaxial CT images were obtained from the foramen magnum to the vertex. Reformats: Sagittal and coronal. IV contrast: None. In accordance with CT protocol optimization, one or more of the following dose reduction techniques were utilized for this exam: automated exposure control, adjustment of mA and/or KV based on patient size, or use of iterative reconstructive technique. FINDINGS: Parenchyma: Patchy bilateral upper ventricle hypoattenuation, suggestive of age-related microangiopathic changes. No intraparenchymal hemorrhage. No evidence of mass, midline shift, or CT findings of infarction. Beck-white differentiation is distinct. Extraaxial Spaces: Normal for age. No subdural or epidural collections identified. Ventricles: Normal in size and position. Sinuses and Orbits: Imaged paranasal sinuses, orbits, and mastoids show no significant abnormality. Bones: No evidence of fracture or calvarial defect. Other: None. IMPRESSION: New acute intracranial abnormality. RADIA
--- NOTE | 2019-07-16 17:52 | DISCHARGE SUMMARY ---
Discharge Summary Admit Date: 07/15/19 Discharge Date: 07/16/19 Discharging Provider: SAUCEDO Primary Care Provider: Dr. Morrow Condition at Discharge: Stable Discharge Disposition: 01 Home, Self Care Discharge Facility Name: home - DIAGNOSES Admission Diagnoses: (1) TIA (transient ischemic attack) (2) Atrial fibrillation (3) Coronary artery disease (4) Prostate cancer (5) Hypertension Discharge Diagnoses with Status of Each Condition: (1) TIA (transient ischemic attack) resolved. pt's slurred speech is resolved. pt has no other focal neurological deficits. pt's repeated CT of head, CTA of head, neck, ECHO has unremarkable on acute finding and stable. Unfortunately MRI of brain can not be done due to his pacemaker. Neurologist in [place] recommended pt hold his Xarelto for one week, start on Aspirin, after one week, resume his home meds as the scheduled. (2) Atrial fibrillation stable (3) Coronary artery disease stable. pt has unremarkable ECHO (4) Prostate cancer stable, followup urologist and intervention radiologist as his schedule (5) Hypertension stable - HPI History of Present Illness: refer from Dr. Farley's HPI on 07/15/19 This is a 79-year-old male with a past medical history significant for coronary artery disease status post CABG, atrial fibrillation status post pacemaker and on Xarelto, prostate cancer, hypertension who presents today complaining of slurred speech that began at 4 PM. The patient was diagnosed with prostate cancer this past summer and was seeing his urologist today for implantation of brachii therapy seeds. His Xarelto had been held for the past 3 days for this procedure. The procedure was completed at 2 PM and he returned home shortly after. At around 4 PM he noticed his speech was slurred and so did his . He reports he had no other symptoms at that time and denied any focal weakness. He states on his way to the hospital via ambulance, he felt numbness in both of his legs below the knees which have since resolved. His slurred speech lasted for around 15 minutes. In the emergency department, he had another brief episode of slurred speech lasting around 5 to 10 minutes while he was getting a CT of the head. He reports no prior history of stroke or TIA. He states he had an ultrasound of his carotid arteries with his television program director and he was referred to a surgeon at [place] for right carotid stenosis and that the stenosis was quite severe supposedly. When the surgeon saw him, a repeat ultrasound was performed the patient tells me that he was told the stenosis was not severe and that he does not need surgery. He then underwent a CTA of the neck last May which showed 90% stenosis of the proximal right ICA. These results were once again faxed back to the surgeon at [place] but he has not heard back from them yet. He denies fever, chills, chest pain, weakness, nausea, vomiting. He states he is supposed be taking ciprofloxacin this evening that was prescribed by his urologist for an infection. He cannot recall the dose of the ciprofloxacin. In the emergency department, he underwent a CT of the head which was negative for infarct or hemorrhage. He underwent a CTA of the neck and head which showed no change compared to prior imaging. Neurology at [place] was contacted and recommended against alteplase. They recommended to hold his Xarelto for 1 week and continue with aspirin. He will be admitted for further management. I did discuss with the patient regarding goals of care and he states that he is a DNR. - HOSPITAL COURSE Hospital Course: pt was admitted for slurred speech TIA. pt's slurred speech was resolved. pt has no other focal neurological deficits. MRI of brain can not be done due to your pacemaker. pt's repeated CT of head, CTA of head, neck, ECHO has unremarkable on acute finding and stable. Neurologist in [place] recommend you hold your Xarelto for one week, start on Aspirin, after one week, resume your home meds as the scheduled. The detail hospital course is as the below. (1) TIA (transient ischemic attack) resolved. pt's slurred speech is resolved. pt has no other focal neurological deficits. pt's repeated CT of head, CTA of head, neck, ECHO has unremarkable on acute finding and stable. Unfortunately MRI of brain can not be done due to your pacemaker. Neurologist in [place] recommended pt hold his Xarelto for one week, start on Aspirin, after one week, resume his home meds as the scheduled. (2) Atrial fibrillation stable (3) Coronary artery disease stable. pt has unremarkable ECHO (4) Prostate cancer stable, followup urologist and intervention radiologist as his schedule (5) Hypertension stable - ALLERGIES Allergies/Adverse Reactions: Allergies Allergy/AdvReac Type Severity Reaction Status Date / Time hydrocodone bitartrate * Allergy shakes, Verified 01/08/19 10:50 [From Vicodin] halucinasions - MEDICATIONS Home Medications: Ambulatory Orders Medication Instructions Recorded Confirmed Cetirizine [ZyrTEC] 10 mg PO DAILY PRN 04/16/13 07/16/19 Tamsulosin HCl [Flomax] 0.4 mg PO BID 01/16/14 07/15/19 Atorvastatin Calcium [Lipitor] 80 mg PO QPM 10/21/14 07/15/19 amLODIPine [Norvasc] 5 mg PO DAILY 10/21/14 07/15/19 [place]-3S/Dha/Epa/Fish Oil [Fish 1 each PO DAILY 09/17/15 07/16/19 Oil 1,200 mg Softgel] Albuterol Sulf [Ventolin Hfa 4 puffs INH DAILY PRN 07/18/17 07/16/19 Inhaler] Cholecalciferol (Vitamin D3) 2,000 unit PO DAILY 07/18/17 07/16/19 [Vitamin D3] Pantoprazole [Protonix] 40 mg PO DAILY 07/18/17 07/15/19 Ubidecarenone [Co Q-10] 1 cap PO DAILY 07/18/17 07/16/19 Metoprolol Tartrate 12.5 mg PO BID 07/15/19 07/15/19 Telmisartan [Micardis] 40 mg PO DAILY 07/15/19 07/15/19 Aspirin 325 mg PO DAILY #7 tablet 07/16/19 C,E,Zinc,Copper 11/Ovhhs4x/Lut 1 cap PO DAILY 07/16/19 07/16/19 [Ocuvite Adult 50 Plus Softgel] - PHYSICAL EXAM AT DISCHARGE General Appearance: positive: No acute distress, Alert. negative: Lethargic Eyes Bilateral: positive: Normal inspection, PERRL, EOMI, No lid inflammation ENT: positive: ENT inspection nml, Pharynx nml, No signs of dehydration. negati ve: Purulent nasal drainage Neck: positive: Nml inspection, Thyroid nml, No JVD, Trachea midline. negative: Thyromegaly, Lymphadenopathy (R), Lymphadenopathy (L), Stiff neck, Tracheal deviation Respiratory: positive: Chest non-tender, No respiratory distress, Breath sounds nml. negative: Wheezes, Rales, Rhonchi Cardiovascular: positive: Regular rate & rhythm, No murmur, No gallop. negative: Irregularly irregular, Extrasystoles, Tachycardia, Bradycardia, JVD present, Systolic murmur, Diastolic murmur Peripheral Pulses: positive: 2+ Abdomen: positive: Non-tender, No organomegaly, Nml bowel sounds, No distention. negative: Tenderness, Guarding, Rebound Back: positive: Nml inspection. negative: CVA tenderness (R), CVA tenderness (L) Skin: positive: Color nml, No rash, Warm, Dry. negative: Cyanosis, Diaphoresis, Pallor Extremities: positive: Non-tender, Full ROM, Nml appearance. negative: Calf tenderness, Lulú's sign/cords Neurologic/Psychiatric: positive: Oriented x3, Motor nml, Sensation nml, Mood/affect nml. negative: Weakness, Sensory loss, Facial droop, Slurred/abnml speech, Depressed mood/affect - LABS Result Diagrams: 07/16/19 04:55 07/16/19 04:55 - FOLLOW UP Follow Up: your slurred speech was resolved. pt has no focal neurological deficits. Your repeated CT of head, CTA of head, neck, ECHO has unremarkable on acute finding and stable. Unfortunately MRI of brain can not be done due to your pacemaker. Neurologist in [place] recommend you hold your Xarelto for one week, start on Aspirin, after one week, resume your home meds as the scheduled. you may followup your PCP in one week, followup your surgeon, urologist, intervention radiologist as your schedule. Should your symptoms return or worsen, you may present ER or call 911 for help. - TIME SPENT Time Spent in Discharge (Minutes): 50
== END 2019-07-16 18:21 | disposition home or self-care (01) ==
LOC: EDBD → EDUNIT# → ED 16:50 → MS2 18:40
PROVIDERS: ADMIT Internal Medicine; ATTEND Nurse Practitioner Gerontology
DX: G45.9 Transient cerebral ischemic attack, unspecified (principal); I48.0 Paroxysmal atrial fibrillation; E78.00 Pure hypercholesterolemia, unspecified; I25.810 Atherosclerosis of coronary artery bypass graft(s) without angina pectoris; J43.9 Emphysema, unspecified; C61 Malignant neoplasm of prostate; I10 Essential (primary) hypertension; N40.0 Benign prostatic hyperplasia without lower urinary tract symptoms; K21.9 Gastro-esophageal reflux disease without esophagitis; Z95.1 Presence of aortocoronary bypass graft; Z95.0 Presence of cardiac pacemaker; Z98.890 Other specified postprocedural states; Z66 Do not resuscitate; Z79.899 Other long term (current) drug therapy; Z85.118 Personal history of other malignant neoplasm of bronchus and lung; Z90.2 Acquired absence of lung [part of]; Z82.3 Family history of stroke; Z87.891 Personal history of nicotine dependence; Z79.82 Long term (current) use of aspirin; Z86.39 Personal history of other endocrine, nutritional and metabolic disease
CPT/HCPCS: 36415; 70450; 70496; 70498; 80048; 80053; 83690; 85025; 85610; 93005; 93306; 96360; 97161; 99285; A9270; G0378; Q9967

== ENCOUNTER 2019-07-23 13:44 | Outpatient (CLI) | payer MEDICARE, OTHER ==
--- NOTE | 2019-07-25 08:42 | CT Report ---
Reason: NEOPLASM OF UPPER LOBE OF LT LUNG Procedure Date: 07/23/2019 Accession Number: [id number] / [id number] Procedure: CT - CHEST WO CPT Code: Final Report FULL RESULT: EXAM: CT CHEST EXAM DATE: 07/23/2019 02:17 PM. CLINICAL HISTORY: Left upper lobe neoplasm, post wedge resection. Lung cancer surveillance. COMPARISONS: CHEST W/ 05/07/2019 8:56 AM CHEST W01/02/2019 10:35 AM. TECHNIQUE: Routine helical CT imaging was performed through the chest. IV contrast: None. Reconstructions: Coronal and sagittal. In accordance with CT protocol optimization, one or more of the following dose reduction techniques were utilized for this exam: automated exposure control, adjustment of mA and/or KV based on patient size, or use of iterative reconstructive technique. FINDINGS: Thyroid Gland: Unremarkable as visualized. Lungs/Pleura: Postoperative changes of right middle lobectomy and bilateral upper lobe wide resection. Stable tiny calcified granuloma () and 3 mm noncalcified nodule () in the right lower lobe. No new pulmonary nodule or mass. No focal infiltrate or pleural effusion. Heart and Great Vessels: Postoperative changes of prior CABG. Heart size is normal. Atherosclerotic calcifications within the [place] coronary arteries. No pericardial effusion. Moderate atherosclerotic calcifications within the aorta. Ectatic ascending aorta measuring 4.5 cm in diameter. Thoracic Lymph Nodes: Increasing size of multiple enlarged mediastinal nodes, for example: 1. Para-aortic node, lateral to ascending aorta, 2.0 x 1.6 cm (11/09), previously 1.2 x 0.7 cm on 05/07/2019 and 1.1 x 0.5 cm on 01/02/2019. 2. AP window node, 2.1 x 1.7 cm (11/08), previously 1.6 x 1.3 cm on 05/07/2019 and 1.5 x 1.1 cm on 01/02/2019. 3. Prevascular node, between SVC and innominate artery origin, 1.8 x 1.1 cm (11/02), previously 1.8 x 0.9 cm on 05/07/2019 and 1.5 x 0.6 cm on 01/02/2019. Stable prominent precarinal node measuring 1.7 x 0.9 cm (11/10), previously 1.5 x 0.9 cm 1.6 x 0.9 cm on 01/02/2019. Visualized Upper Abdomen: Post cholecystectomy. Multiple bilateral renal cortical and parapelvic cysts. Bones: Thoracic spine DISH. No suspicious lytic or blastic osseous lesion. Other: None. IMPRESSION: 1. Postoperative changes of right middle lobectomy and bilateral upper lobe wedge resection. 2. Increasing size of multiple enlarged medial saddle nose, specific for david metastasis. 3. Ectatic ascending aorta measuring 4.5 cm in diameter. RADIA
== END 2019-07-23 13:45 | disposition home or self-care (01) ==
LOC: DI 13:44
PROVIDERS: ATTEND Physician Assistant Surgical
DX: C34.12 Malignant neoplasm of upper lobe, left bronchus or lung (principal); I77.810 Thoracic aortic ectasia
CPT/HCPCS: 71250

== ENCOUNTER 2019-08-11 13:54 | Outpatient (CLI) | payer MEDICARE, OTHER | END 2019-08-11 23:59 | disposition home or self-care (01) | LOC: LAB.WCP 13:54 | PROVIDERS: ATTEND Specialist | DX: C61 Malignant neoplasm of prostate (principal) | CPT/HCPCS: 36415; 84153 ==

== ENCOUNTER 2019-09-15 08:00 | Outpatient (CLI) | payer MEDICARE, OTHER | END 2019-09-15 23:59 | disposition home or self-care (01) | LOC: LAB.WCP 08:00 | PROVIDERS: ATTEND Specialist | DX: C61 Malignant neoplasm of prostate (principal) | CPT/HCPCS: 36415; 84153 ==

== ENCOUNTER 2019-10-08 08:43 | Outpatient (CLI) | payer MEDICARE, OTHER | END 2019-10-08 23:59 | disposition home or self-care (01) | LOC: LAB.WCP 08:43 | PROVIDERS: ATTEND Specialist | DX: C61 Malignant neoplasm of prostate (principal) | CPT/HCPCS: 36415; 84153 ==

== ENCOUNTER 2019-10-13 09:46 | Outpatient (CLI) | payer MEDICARE, OTHER ==
[2019-10-13] MEDS ORDERED: IOVERSOL 320 100 ML VIAL IVP ONE ×2 (10:32→12:45)
--- NOTE | 2019-10-15 08:48 | CT Report ---
Reason: LUNG CA Procedure Date: 10/13/2019 Accession Number: [id number] / [id number] Procedure: CT - CHEST W CPT Code: Final Report FULL RESULT: EXAM: CT CHEST EXAM DATE: 10/13/2019 11:05 AM. CLINICAL HISTORY: LUNG CA. COMPARISONS: CHEST W/O 07/23/2019 2:17 PM. TECHNIQUE: Routine helical CT imaging was performed through the chest. IV contrast: 80 mL of Optiray 320. Reconstructions: Coronal and sagittal. In accordance with CT protocol optimization, one or more of the following dose reduction techniques were utilized for this exam: automated exposure control, adjustment of mA and/or KV based on patient size, or use of iterative reconstructive technique. FINDINGS: Lungs/Pleura: Postsurgical changes in the left upper lobe redemonstrated and similar to the prior examination. Calcified granuloma in the anterolateral aspect of the right lower lobe measuring approximately 5 mm is again demonstrated and of no clinical significance. Multiple irregular consolidations in the right lung base posterior medially (series 6, image 76) are new from the prior examination. Mediastinum: There is a prevascular lymph node measuring 12 mm, previously 16 mm short axis. There is a precarinal lymph node measuring 11 mm, previously 9 mm in short axis. The patient is status post median sternotomy and CABG. Partial Bones: Unremarkable. Visualized Abdomen: Multiple simple appearing cysts in the right kidney and partially visualized cyst in the left kidney measuring up to 5.1 cm. Other: None. IMPRESSION: 1. Postsurgical changes in the left upper lobe redemonstrated and similar to the prior examination. 2. Multiple irregular consolidations in the right lung base posterior medially are new from the prior examination. This finding is nonspecific and may represent inflammatory infectious etiology but close attention on follow-up imaging is recommended as metastatic disease cannot be entirely excluded. 3. Decreasing size of the previously seen mediastinal lymph nodes compared to the prior examination. RADIA
== END 2019-10-13 09:47 | disposition home or self-care (01) ==
LOC: DI 09:46
PROVIDERS: ATTEND Internal Medicine
DX: C34.92 Malignant neoplasm of unspecified part of left bronchus or lung (principal)
CPT/HCPCS: 71260

== ENCOUNTER 2020-01-15 08:00 | Outpatient (CLI) | payer MEDICARE, OTHER | END 2020-01-15 23:59 | disposition home or self-care (01) | LOC: LAB.WCP 08:00 | PROVIDERS: ATTEND Specialist | DX: C61 Malignant neoplasm of prostate (principal) | CPT/HCPCS: 36415; 84153 ==

== ENCOUNTER 2020-02-06 08:00 | Outpatient (CLI) | payer MEDICARE, OTHER ==
[2020-02-06 11:50] LABS: ALBUMIN 4.3 g/dL (3.2-5.5); ALBUMIN/GLOBULIN RATIO 1.6 (1.0-2.2); ALKALINE PHOSPHATASE 55 IU/L (42-121); ALT ALANINE AMINOTRANSFERASE 34 IU/L (10-60); AST ASPARTATE AMINOTRANSFERASE 31 IU/L (10-42); BILIRUBIN,TOTAL 0.8 mg/dL (0.2-1.0); BUN - BLOOD UREA NITROGEN 24 mg/dL (6-20); CALCIUM 9.4 mg/dL (8.5-10.3); CARBON DIOXIDE - CO2 28 mmol/L (21-32); CHLORIDE 105 mmol/L (101-111); CHOL/HDL RATIO 2.9 (<5.0); CHOLESTEROL 139 mg/dL; CREATININE 0.8 mg/dL (0.6-1.2); GLUCOSE 154 mg/dL (70-100); HDL CHOLESTEROL 48 mg/dL; LDL CHOLESTEROL,CALCULATED 44 mg/dL; LDL/HDL RATIO 0.9 (<3.6); SODIUM 142 mmol/L (135-145); VLDL CHOLESTEROL 47 mg/dL
== END 2020-02-06 23:59 | disposition home or self-care (01) ==
LOC: LAB.WCP 08:00
PROVIDERS: ATTEND Internal Medicine Cardiovascular Disease
DX: E78.5 Hyperlipidemia, unspecified (principal)
CPT/HCPCS: 36415; 80053; 80061; 83721

== ENCOUNTER 2021-01-13 08:00 | Outpatient (CLI) | payer MEDICARE, OTHER | END 2021-01-13 23:59 | disposition home or self-care (01) | LOC: LAB.R 08:00 | PROVIDERS: ATTEND Internal Medicine | DX: R19.7 Diarrhea, unspecified (principal) | CPT/HCPCS: 81599; 83993; 87045; 87046; 87177; 87209; 87329; 87427; 87493 ==

== ENCOUNTER 2021-04-06 13:59 | Outpatient (CLI) | payer MEDICARE, OTHER ==
--- NOTE | 2021-04-06 16:33 | CONSULTATION NOTE ---
Palliative Care Consultation - Referral Referring Provider: Dr. 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 A CT scan on 09/2020 showed mediastinal lymphadenopathy for possible disease recurrence with follow-up PET scan no distant mets but multiple hypermetabolic mediastinal lymph nodes identified consistent with metastatic disease, confirmed by biopsy. He tolerated treatment poorly with diarrhea, declining functional status, recurrent dehydration and needing 2 units of packed red blood cells for anemia secondary to treatment. Patient is meeting with palliative care to provide support for symptom management, patient has had fairly high symptom burden, with ongoing decline. His main complaint today his he reports increased pain and declining functional status secondary to back pain and lower lumbar area. Reports this originally was noticed about 2 years ago, has been worsening in severity, and over the last several weeks has impacted his ability to walk. He is pain-free laying flat but with sitting he is a 5 out of 10, and was standing 8-9 over 10 and limiting function. He reports he has sharp shooting pains and numbness into his bilateral hip thigh area, and describes pain as a knife stuck right in that spot. Patient denies any injury or trauma, but is now impacting his quality of life and wondering who to speak with this about, this was staffed with oncology. Patient is due for restaging scans, and will include CT of thoracic and lumbar spine given patient is not a candidate for MRI with pacemaker. Patient also presents with persistent fatigue, declining functional status, worsening appetite, early satiety with intermittent vomiting if he eats too much, does identify his depression a 4 out of 10 and anxiety 3 out of 10. He does perceive his quality of life is declining. They have been looking at end-of-life planning, as do have 6 children including and up to stick son. Medical/Surgical History - Past Medical History Cardiovascular: reports: Hypertension, High cholesterol, Coronary artery disease, Atrial flutter, Atrial fibrillation Respiratory: reports: Pneumonia (tx recently with levaquin related to CT findings) Endocrine/Autoimmune: reports: Type 2 diabetes GI: reports: GERD, Chronic diarrhea (since radiation for prostate CA) : reports: Benign prostate hypertrophy, Kidney stones HEENT: reports: None Psych: reports: Depression Musculoskeletal: reports: Osteoarthritis, Fatigue, Chronic back pain Derm: reports: None MRSA Hx?: No - Past Surgical History General: reports: Cholecystectomy, Appendectomy Cardiovascular: reports: Lobectomy, Other (portacath) HEENT: reports: Cataracts Social History - Living Situation Living arrangement: At home Living Situation: With spouse/s.o., With family Support System: Both patient and are in the [employer], 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 They do have 6 children, 2 are at home including one autistic son. Their cece is important to them, they are [employer]. They have a large extended family on both sides, have felt very supported by their sons though looking at may be changing up the situation unfortunately. They have been working on there will has not been updated since 1975. [place] Patient lives on a small 5 [place] farm with animals and gardens, if functional status continues to decline will need to modify their current menagerie Family History - Family History Family History: Mother: , CVA/TIA ( of stroke 61), Father: , Cancer Family History Comment/Other: Report many members with cancer as lived near the [employer] Medications/Allergies - Medications Home Medications: Ambulatory Orders Medication Instructions Recorded Confirmed Cetirizine [ZyrTEC] 10 mg PO DAILY PRN 04/16/13 04/06/21 Tamsulosin HCl [Flomax] 0.4 mg PO BID 01/16/14 04/06/21 Atorvastatin Calcium [Lipitor] 80 mg PO QPM 10/21/14 04/06/21 Cholecalciferol (Vitamin D3) 1,000 unit PO DAILY 07/18/17 04/06/21 [Vitamin D3] Pantoprazole [Protonix] 40 mg PO DAILY 07/18/17 04/06/21 Ubidecarenone [Co Q-10] 100 mg PO DAILY 07/18/17 04/06/21 Metoprolol Tartrate 25 mg PO BID 07/15/19 04/06/21 Telmisartan [Micardis] 40 mg PO DAILY 07/15/19 04/06/21 Acetaminophen [Tylenol] 650 mg PO BID 02/25/20 04/06/21 Ascorbic Acid [Vitamin C] 1,000 mg PO DAILY 02/25/20 04/06/21 Aspirin 81 mg PO DAILY 02/25/20 04/06/21 Aspirin [Aspirin EC] 81 mg PO DAILY 02/25/20 04/06/21 Glucos Sul 2Kcl/MSM/Chond/C/Mn 1 cap PO BID 02/25/20 04/06/21 [Glucosamine Chondroitin Cap] Ipratropium/Albuterol [Combivent 1 puffs PO QID 02/25/20 04/06/21 Respimat] Iron,Carbonyl [Iron Chews] 27 mg PO DAILY 02/25/20 04/06/21 Magnesium Oxide [Magnesium] 400 mg PO DAILY 02/25/20 04/06/21 Multivitamin [Multivitamins] 1 cap PO DAILY 02/25/20 04/06/21 [place]-3/Dha/Epa/Fish Oil [Fish Oil 1 cap PO BID 02/25/20 04/06/21 1,000 mg Softgel] Rivaroxaban [Xarelto] 20 mg PO DAILY 02/25/20 04/06/21 Vit C/E/Zinc/Lutein/Zeaxanthin 1 tab PO DAILY 02/25/20 04/06/21 [Ocuvite Eye Health Gummi] Lidocaine/Prilocain 2.5% Cream 5 applic TOP UD #1 gm 12/28/20 04/06/21 [Emla 2.5% Cream] Prochlorperazine Maleate 10 mg PO Q6HR PRN #30 tab 12/28/20 04/06/21 [Compazine] ondansetron HCL [Ondansetron HCl] 8 mg PO BID PRN #30 tablet 12/28/20 04/06/21 Diphenoxylate/Atropine [Lomotil] 1 each PO Q6H PRN #90 tablet 01/26/21 04/06/21 levoFLOXacin [Levaquin] 750 mg PO DAILY 03/30/21 04/06/21 levoFLOXacin [Levaquin] 750 mg PO ONCE 7 Days #21 tablet 03/30/21 04/06/21 - Allergies Allergies/Adverse Reactions: Allergies Allergy/AdvReac Type Severity Reaction Status Date / Time hydrocodone bitartrate * Allergy oscar, Verified 04/06/21 13:35 [From Vicodin] halucinasions Review of Systems - Constitutional Constitutional: reports: Fatigue, Weakness, Poor appetite, Night sweats, Weight loss (177 down from 186 a few weeks ago). denies: Fever, Chills - Ears, Nose & Throat Ears, Nose & Throat: reports: Postnasal drainage - Cardiovascular Cardiovascular: reports: Lightheadedness, Exertional dyspnea, Decr. exercise tolerance. denies: Palpitations, Chest pain, Edema - Respiratory Respiratory: reports: SOB with exertion. denies: SOB at rest - Gastrointestinal Gastrointestinal: reports: Diarrhea (using immodium alt with lomotil BID with decrease diarrhea episodes to one in four days), Nausea (intermittent), Vomiting (when tries to drink gatorade/or eat too much), Bloating, Poor appetite, Early satiety. denies: Reflux/heartburn - Genitourinary Genitourinary: denies: Frequency, Incontinence - Musculoskeletal Musculoskeletal: reports: Muscle pain, Back pain, Muscle aches, Stiffness, Limited range of motion, Muscle weakness, Joint pain, Joint swelling - Integumentary Integumentary: reports: Dryness - Neurological Neurological: reports: General weakness, Numbness - Psychiatric Psychiatric: reports: Depression, Anxiety - Endocrine Endocrine: reports: Diabetes type 2 - Hematologic/Lymphatic Hematologic/Lymph: reports: Anemia (recent 2 units), Recurrent infections (tx with levaquin) - All Other Systems All Other Systems: reports: Reviewed and negative Physical Exam - Physical Exam General Appearance: positive: Alert, Mild distress (related to back pain) Eyes Bilateral: positive: Normal inspection Neck: positive: Trachea midline Cardiovascular: positive: Regular rate & rhythm Respiratory: positive: Diminished in bases. negative: Wheezes, Rales, Rhonchi Abdomen: positive: Non-tender, Soft, Nml bowel sounds Skin: positive: Pallor. negative: Dryness Extremities: positive: No pedal edema Neurologic/Psychiatric: positive: Oriented x3, Mood/affect nml Palliative Care - POLST Patient has POLST: Yes POLST Status: DNR, Selective Treatment (completed at visit) Pain: Pain worsening, Location (lower lumbar region), Severity (5/10) Tiredness/Fatigue: Severe (7-10) Drowsiness/Sedation: Mild (1-3) Nausea: Moderate (4-6) Anorexia: Severe (7-10) Dyspnea: Mild (1-3) Depression: Moderate (4-6) Anxiety: Mild (1-3) Feelings of wellbeing/Perceived Quality of Life: Poor, Worsening Constipation: No Performance Status: Patient has had a decline in his functional status, related both to his increasing back pain, lower extremity weakness, intermittent lightheadedness, and generalized muscle weakness and discomfort. They do have a new shower stall, the patient has been able to do less of his ADLs and not participate in his usual activities at home. - Palliative Care Discussion: Meeting patient and for the first time, at this point in time still awaiting for further treatment planning. Patient has been declining both functionally, as well as concern regarding pneumonia versus disease progression versus side effects of treatment. Patient did receive a round of antibiotics, with not significant improvement. They do understand the seriousness of his illness, patient has multiple comorbidities including cardiac, prostate cancer, and will be receiving further restaging scans. Patient presents with fairly high symptom burden, has a strong cece and good family support. He is ready to go when it is time, but awaiting for some understanding of his current situation. They are working on their end-of-life planning, redoing their will, we did discuss about advanced directives, particularly medical DPOA. It would by default go to [place] his , but would recommend a second in line. We did discuss the POLST, particularly in the context he would want to be a DN AR and allow natural , given where he is currently he would choose as far as level of medical interventions selective treatment with the goal to treat reversible conditions and avoiding invasive measures including DO NOT INTUBATE. We did discuss end-of-life planning, they have had some experiences he and he himself had a near experience about 50 years ago so does believe he is going to a better place and feels like he is ready when it is his time. He has had blessings from his booking agent, but there is concern how he they would manage if he needs further care, introduced hospice as a layer of support at that time. 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 He is currently on a hold for treatment, awaiting further scan results. Palliative care has been introduced to provide support for pain and symptom management and anticipatory guidance. Recommendations/Counseling Done: 1. Back pain. It is unknown etiology, whether worsening osteoarthritic/DJD/chronic etiology versus concern for metastatic disease. Patient is to get restaged, will add CT of the thoracic/lumbar area. Patient will initiate on oxycodone, patient has had a reaction to hydrocodone in the past in the context of "passed out". Patient has taken pain meds in the past, including most likely oxycodone. Given patient's experience and age, will initiate 2.5 mg as a test dose, and repeat in 1 hour if no effect. Patient's been instructed to use oxycodone 5 mg every 3 hours as needed and to record, will then titrate over to long-acting depending on the use. Counseling provided regarding principles of pain management have long and short acting. Also cautioned on constipation, may need to cut back on his Imodium and Lomotil as he has chronic diarrhea. Agreed they will call if any questions, and revisit next week. 2. Weight loss. This is multifactorial, patient will follow up with dentist to get tooth repaired, patient also presents with early satiety. has been pushing Gatorade causing more nausea and vomiting, discussed at this point in time his potassium is fine, other fluids will suffice. Counseling provided regarding strategies around eating every 2 hours, looking at drinks with m inerals and calories, with encouragement to be more aggressive around this. Patient is receiving a liter of fluids secondary dehydration today. 3. Generalized weakness. Patient's functional status is declining most likely is related to muscle mass loss, increasing back pain, and concern for possible stenosis/cord compression component. Patient's concern has escalated over the last several days to week. Will await outcome of scans, may benefit from physical therapy depending on underlying etiology. 4. Advanced care planning. Patient has multiple comorbidities, has had a steady decline in function, increased symptom burden and though has good family support will need more support around long-term planning. We did complete POLST today, with DN AR/DNI and selective treatments. Patient would like to avoid medical medical nutrition if possible. Patient has a strong cece, is not afraid of dying, will continue to support patient's current coping mechanisms as well as continue to prepare for anticipatory decline into the future. 75 minutes with greater than 50% of this done in counseling regarding pain and symptom management, coordination of care with oncology, and anticipatory guidance.
== END 2021-04-06 14:00 | disposition home or self-care (01) ==
LOC: PC 13:59
PROVIDERS: ATTEND Nurse Practitioner Adult Health
DX: Z51.5 Encounter for palliative care (principal); M54.5 Low back pain; K52.9 Noninfective gastroenteritis and colitis, unspecified; R63.4 Abnormal weight loss; R53.83 Other fatigue; E86.0 Dehydration; R11.2 Nausea with vomiting, unspecified; R68.81 Early satiety; K08.9 Disorder of teeth and supporting structures, unspecified; M62.81 Muscle weakness (generalized); R42 Dizziness and giddiness; C61 Malignant neoplasm of prostate; C34.12 Malignant neoplasm of upper lobe, left bronchus or lung; Z79.899 Other long term (current) drug therapy; Z95.0 Presence of cardiac pacemaker; Z95.828 Presence of other vascular implants and grafts; Z87.01 Personal history of pneumonia (recurrent); Z66 Do not resuscitate; Z80.9 Family history of malignant neoplasm, unspecified
CPT/HCPCS: 99205

== ENCOUNTER 2021-04-13 12:45 | Outpatient (CLI) | payer MEDICARE, OTHER ==
--- NOTE | 2021-04-13 17:20 | CONSULTATION NOTE ---
Palliative Care Follow Up - Referral Referring Provider: Dr. Liu Mendoza Time of Visit: 1245 60 min Referral setting: 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 He had repeat CT scans today, he had tolerated his treatment poorly with pancytopenia, worsening hyd ration, and continued weight loss and functional decline. Patient has had improved pain management with initiation of low-dose oxycodone, diarrhea is since resolved, still is challenged to stay hydrated and presents today with orthostatic hypotension. Meeting with patient, , and son today in follow-up on symptoms and strategies to improve his quality of life. Patient meets with oncology next week regarding scans and possible treatment plan Past Medical History: Hypertension, high cholesterol, CAD, atrial flutter, atrial fib, pneumonia, type 2 diabetes, GERD, chronic diarrhea since radiation for prostate, BPH, kidney stones, depression, osteoarthritis, fatigue, chronic back pain. 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 They do have 6 children, 2 are at home including 1 Autistic son. Their cece is important, they are Ep[employer]. They have large extended family on both sides and feel very fortunate to be supported. [place], patient lives in a small 5 acre farm with animals and gardens, if functional status continues to decline we will need to modify the current menagerie. Medications/Allergies - Medications Home Medications: Ambulatory Orders Medication Instructions Recorded Confirmed Cetirizine [ZyrTEC] 10 mg PO DAILY PRN 04/16/13 04/13/21 Tamsulosin HCl [Flomax] 0.4 mg PO BID 01/16/14 04/13/21 Atorvastatin Calcium [Lipitor] 80 mg PO QPM 10/21/14 04/13/21 Cholecalciferol (Vitamin D3) 1,000 unit PO DAILY 07/18/17 04/13/21 [Vitamin D3] Pantoprazole [Protonix] 40 mg PO DAILY 07/18/17 04/13/21 Ubidecarenone [Co Q-10] 100 mg PO DAILY 07/18/17 04/13/21 Metoprolol Tartrate 25 mg PO BID 07/15/19 04/13/21 Telmisartan [Micardis] 40 mg PO DAILY 07/15/19 04/13/21 Acetaminophen [Tylenol] 650 mg PO BID 02/25/20 04/13/21 Ascorbic Acid [Vitamin C] 1,000 mg PO DAILY 02/25/20 04/13/21 Aspirin 81 mg PO DAILY 02/25/20 04/13/21 Glucos Sul 2Kcl/MSM/Chond/C/Mn 1 cap PO BID 02/25/20 04/13/21 [Glucosamine Chondroitin Cap] Ipratropium/Albuterol [Combivent 1 puffs PO QID 02/25/20 04/13/21 Respimat] Iron,Carbonyl [Iron Chews] 27 mg PO DAILY 02/25/20 04/13/21 Magnesium Oxide [Magnesium] 400 mg PO DAILY 02/25/20 04/13/21 Multivitamin [Multivitamins] 1 cap PO DAILY 02/25/20 04/13/21 [place]-3/Dha/Epa/Fish Oil [Fish Oil 1 cap PO BID 02/25/20 04/13/21 1,000 mg Softgel] Rivaroxaban [Xarelto] 15 mg PO DAILY 02/25/20 04/13/21 Vit C/E/Zinc/Lutein/Zeaxanthin 1 tab PO DAILY 02/25/20 04/06/21 [Ocuvite Eye [facility]] Lidocaine/Prilocain 2.5% Cream 5 applic TOP UD #1 gm 12/28/20 04/13/21 [Emla 2.5% Cream] Prochlorperazine Maleate 10 mg PO Q6HR PRN #30 tab 12/28/20 04/13/21 [Compazine] ondansetron HCL [Ondansetron HCl] 8 mg PO BID PRN #30 tablet 12/28/20 04/13/21 Diphenoxylate/Atropine [Lomotil] 1 each PO Q6H PRN #90 tablet 01/26/21 04/13/21 oxyCODONE [Roxicodone] 2.5 - 5 mg PO Q4HR PRN 04/13/21 04/13/21 - Allergies Allergies/Adverse Reactions: Allergies Allergy/AdvReac Type Severity Reaction Status Date / Time hydrocodone bitartrate * Allergy shaisaura, Verified 04/06/21 13:35 [From Vicodin] halucinasions Review of Systems - Constitutional Constitutional: reports: Fatigue (improved but persistent), Weakness (difficulty standing for greater than 60 seconds), Poor appetite, Night sweats, Weight loss (177 down from 186 a few weeks ago). denies: Fever, Chills - Eyes Eyes: reports: Vision loss - Ears, Nose & Throat Ears, Nose & Throat: reports: Postnasal drainage - Cardiovascular Cardiovascular: reports: Lightheadedness, Exertional dyspnea, Decr. exercise tolerance. denies: Palpitations, Chest pain, Edema - Respiratory Respiratory: reports: SOB with exertion. denies: SOB at rest - Gastrointestinal Gastrointestinal: reports: Bloating, Poor appetite (improved this week), Early satiety. denies: Diarrhea, Nausea (intermittent), Vomiting (when tries to drink gatorade/or eat too much), Reflux/heartburn - Genitourinary Genitourinary: reports: Other (c/o some retentive symptoms) - Musculoskeletal Musculoskeletal: reports: Muscle pain, Back pain, Muscle aches, Stiffness, Limited range of motion, Muscle weakness, Joint pain, Joint swelling - Integumentary Integumentary: reports: Dryness - Neurological Neurological: reports: General weakness, Numbness, Memory problems (mild) - Psychiatric Psychiatric: reports: Depression, Anxiety - Endocrine Endocrine: reports: Diabetes type 2 - Hematologic/Lymphatic Hematologic/Lymph: reports: Anemia (improved 9.0) - All Other Systems All Other Systems: reports: Reviewed and negative Physical Exam - Vital Signs Temperature: 97.2 C Pulse Rate: 56 (sitting 60 standing) Respiratory Rate: 18 Blood Pressure: 104/65 (sitting 91/54 standing) - Physical Exam General Appearance: positive: No acute distress, Alert Eyes Bilateral: positive: Normal inspection Neck: positive: Trachea midline Cardiovascular: positive: Regular rate & rhythm Respiratory: positive: Diminished in bases. negative: No respiratory distress (breathless with conversation), Wheezes, Rales, Rhonchi Abdomen: positive: Non-tender, Soft, Nml bowel sounds Skin: positive: Pallor. negative: Dryness Extremities: positive: No pedal edema Neurologic/Psychiatric: positive: Oriented x3, Mood/affect nml, Flat affect Palliative Care - POLST Patient has POLST: Yes POLST Status: DNR, Selective Treatment Pain: Pain improved, Location (pain in back resovled with medication; left lower rib pain worsening; describes "baseball" in stitch in side; tender to palpation diffuse over rib area though patient localizes to rib 7/8 area; mild swelling but guarding so difficult to measure), Severity (2/10 back; 9/10 with palpation), Comment (currently using 2.5 mg oxycodone QID and apap 650 mg BID; feels pain better but rib area worse) Tiredness/Fatigue: Moderate (4-6) Drowsiness/Sedation: Mild (1-3) Nausea: None Anorexia: Mild (1-3) Dyspnea: Moderate (4-6) Depression: Mild (1-3) Anxiety: Mild (1-3) Feelings of wellbeing/Perceived Quality of Life: Good, Acceptable, Improved Sleep: Variable sleep pattern (up at night to void) Constipation: No Performance Status: 's perception is patient continues to decline functionally, walking less as far as distance. Patient reports can only tolerate because of lower extremity weakness, gets quite shaky in the legs. Is able to ambulate about 25 feet, is only using cane intermittently. Patient's ambulation at this point is not limited by pain, as was previously as well as some numbness and balance issues. He is less able to participate in his normal activities, and is much more sedentary. - Palliative Care Discussion: Patient just completed his scans, which will inform moving forward his treatment plan. Patient with functional decline, ECOG 3, concern regarding patient's ability to tolerate treatment in the future. Did discuss or suggest the concept of more harm than good with the therapies, patient continues to struggle with dehydration, weakness, both functional and cognitive decline. Patient has strong cece in good family support, his son from [place] is here visiting. We had completed the POLST last time with DN AR/DNI and selective treatment. The patient does understand his cancer is not curable, unclear if he recognizes his decline. Results - Lab Results Lab results reviewed: Yes Lab and Imaging Results: Labs drawn secondary to patient's's signs and symptoms of dehydration, as well as concern for anemia. 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 He had his scans done today, awaiting further treatment plan based on these. Patient does present with concern for escalating left rib pain and discomfort, though scans do not reveal anything notable. Patient has improved pain management with low-dose opioid and tolerating without significant side effects. Palliative care continue provide support for pain and symptom management and anticipatory guidance Recommendations/Counseling Done: 1. Back pain. Patient does have a CT scan thoracic/lumbar area, with changes mostly DJD, patient has had improved back pain with oxycodone 2.5 mg 4 times daily, does have worst pain in the morning prior to arising. He is also using APAP 650 mg twice daily. Counseling provided regarding strategies for timing of oxycodone, patient would most likely benefit from long-acting medication, but has not hit high enough opioid load to warrant transition. Patient was counseled can increase to a full tab as well, balancing side effects of sedation. Patient has not had any trouble with constipation, bowels moving ben y. 2. Weight loss. This is multifactorial, patient has an appointment the dentist to get tooth repaired. is tried some different strategies as far as more frequent feedings, less choices for food, and using supplemental drink daily. Patient reports appetite is somewhat improved, will continue to monitor. Patient will receive a liter of fluids today, secondary to hypotension/orthostatic as well as continued challenging intake. 3. Generalized weakness. Patient's functional status continues to decline, recommended short walks with integrating walker to offload back and increased balance. Encourage small frequent walks of short distance to improve his endurance. Will recommend home physical therapy if patient able to tolerate first step. 4. Orthostatic hypotension. Patient continues with difficulty standing for greater than 60 seconds, presents with low blood pressure and orthostatic hypotension on taking counts. Will arrange for 1 L of fluids today, and check CBC to make sure still improving. 5. Advanced care planning. Patient has multiple morbidities steady decline of function, worsening symptom burden and though has good family support will still need support and long-term planning. Patient has a completed POLST with DN AR/DNI and selective treatments. Patient has a strong cece, very much enjoys spending time with his family, continue to support and patient and her coping mechanisms is a prepare for anticipatory decline in the future 60 minutes with review of scans, labs, [id number] with patient, consultation with oncology, counseling regarding pain and symptom management and anticipatory guidance provided
== END 2021-04-13 12:46 | disposition home or self-care (01) ==
LOC: PC 12:45
PROVIDERS: ATTEND Nurse Practitioner Adult Health
DX: Z51.5 Encounter for palliative care (principal); G89.3 Neoplasm related pain (acute) (chronic); C61 Malignant neoplasm of prostate; C34.12 Malignant neoplasm of upper lobe, left bronchus or lung; R63.0 Anorexia; R68.81 Early satiety; R14.0 Abdominal distension (gaseous); R63.4 Abnormal weight loss; I95.1 Orthostatic hypotension; R53.1 Weakness; I48.91 Unspecified atrial fibrillation; R53.83 Other fatigue; R06.09 Other forms of dyspnea; R07.81 Pleurodynia; Z79.899 Other long term (current) drug therapy; Z79.01 Long term (current) use of anticoagulants; Z74.09 Other reduced mobility; Z66 Do not resuscitate
CPT/HCPCS: 99215

== ENCOUNTER 2021-05-04 13:39 | Outpatient (CLI) | payer MEDICARE, OTHER ==
--- NOTE | 2021-05-04 16:24 | CONSULTATION NOTE ---
Palliative Care Follow Up - Referral Referring Provider: Dr. Liu Mendoza Time of Visit: 1410 45 min Referral setting: [facility] [place] Referral Reason: Pain of neoplastic origin/SCC Lung CA/Prostate CA/GLF with shoulder pain - Information Sources Records reviewed: Previous records reviewed History/Review of Systems obtained from: Patient, Family (Marleen) Exam limitations: Clinical condition (mild STM deficits) - History of Present Illness Update Brief HPI Update: This is a jenny 80-year-old gentleman who is receiving maintenance pembrolizumab for his recurrent squamous cell carcinoma of the left upper lobe. He has had multiple rounds of chemotherapy, with original diagnosis in 2014 and right middle lobe of lung, resection 09/2014, followed again with chemotherapy with recurrence of the left upper lobe in 2016. He had a wedge resection of left upper lobe 07/2017 and had been on active surveillance since that time. He did have a CT of the chest 2020 with concerning mediastinal lymphadenopathy and PET scan showed no distant metastatic disease but hypermetabolic mediastinal lymph nodes consistent with metastatic disease. He did receive chemotherapy but had increasing troubles with pancytopenia, and poor tolerance overall. He continues with low-grade anemia, and hypomagnesia at 1.0 today. Overall patient is continued to improve, he has had fairly significant back and left rib pain and tenderness. This is improved some over the last few weeks, he has been increasingly active, unfortunately last night he had a fall and suffered a left shoulder injury when he fell on it. He does have range of motion, no numbness or tingling point tenderness on palpation at the humeral head. [employer] are equal, no bruising or contusion noted. He also has a small light abrasion on his left forehead, but hit his shoulder first, with only slight bump to his head. No tenderness or swelling at site on head. Patient has a second comorbidity of high risk prostate cancer since 02/2019. Had radiation to the prostate in 05/2019, and on ADT by urology. Past Medical History: Hypertension, hypercholesteremia, CAD, atrial flutter, atrial fib, pneumonia, type 2 diabetes, GERD, chronic diarrhea since radiation for prostate, BPH, kidney stones, depression, osteoarthritis, fatigue, chronic back pain past surgical history includes cholecystectomy, appendectomy, lobectomy, Port-A-Cath, cataracts Social History - Living Situation Living arrangement: At home Living Situation: With spouse/s.o., With family Support System: She lives at home with his jenny Rhonda, they have been 53 years. They have 6 children, 2 are at home including Autistic son. They are Jew, their yisel is very important to them. They have large extended family on both sides and feel very fortunate[place] her children here, patient lives on a small 5 acre farm with animals and gardens. Medications/Allergies - Medications Home Medications: Ambulatory Orders Medication Instructions Recorded Confirmed Cetirizine [ZyrTEC] 10 mg PO DAILY PRN 04/16/13 04/21/21 Tamsulosin HCl [Flomax] 0.4 mg PO BID 01/16/14 04/21/21 Atorvastatin Calcium [Lipitor] 80 mg PO QPM 10/21/14 04/21/21 Cholecalciferol (Vitamin D3) 1,000 unit PO DAILY 07/18/17 04/21/21 [Vitamin D3] Pantoprazole [Protonix] 40 mg PO DAILY 07/18/17 04/21/21 Ubidecarenone [Co Q-10] 100 mg PO DAILY 07/18/17 04/21/21 Metoprolol Tartrate 25 mg PO BID 07/15/19 04/21/21 Telmisartan [Micardis] 40 mg PO DAILY 07/15/19 04/21/21 Acetaminophen [Tylenol] 650 mg PO BID 02/25/20 04/21/21 Ascorbic Acid [Vitamin C] 1,000 mg PO DAILY 02/25/20 04/21/21 Aspirin 81 mg PO DAILY 02/25/20 04/21/21 Glucos Sul 2Kcl/MSM/Chond/C/Mn 1 cap PO BID 02/25/20 04/21/21 [Glucosamine Chondroitin Cap] Ipratropium/Albuterol [Combivent 1 puffs PO QID 02/25/20 04/21/21 Respimat] Iron,Carbonyl [Iron Chews] 27 mg PO DAILY 02/25/20 04/21/21 Magnesium Oxide [Magnesium] 400 mg PO DAILY 02/25/20 04/21/21 Multivitamin [Multivitamins] 1 cap PO DAILY 02/25/20 04/21/21 [place]-3/Dha/Epa/Fish Oil [Fish Oil 1 cap PO BID 02/25/20 04/21/21 1,000 mg Softgel] Rivaroxaban [Xarelto] 15 mg PO DAILY 02/25/20 04/21/21 Vit C/E/Zinc/Lutein/Zeaxanthin 1 tab PO DAILY 02/25/20 04/21/21 [Lingvist Eye [facility] Gummies] Lidocaine/Prilocain 2.5% Cream 5 applic TOP UD #1 gm 12/28/20 04/21/21 [Emla 2.5% Cream] Prochlorperazine Maleate 10 mg PO Q6HR PRN #30 tab 12/28/20 04/21/21 [Compazine] ondansetron HCL [Ondansetron HCl] 8 mg PO BID PRN #30 tablet 12/28/20 04/21/21 Diphenoxylate/Atropine [Lomotil] 1 each PO Q6H PRN #90 tablet 01/26/21 04/21/21 oxyCODONE [Roxicodone] 2.5 - 5 mg PO Q4HR PRN 04/13/21 04/21/21 - Allergies Allergies/Adverse Reactions: Allergies Allergy/AdvReac Type Severity Reaction Status Date / Time hydrocodone bitartrate * Allergy shakes, Verified 04/06/21 13:35 [From Vicodin] halucinasions Review of Systems - Constitutional Constitutional: reports: Fatigue (improved but persistent), Weakness (improved some), Poor appetite, Night sweats, Weight loss (177 down from 186 a few weeks ago). denies: Fever, Chills - Ears, Nose & Throat Ears, Nose & Throat: reports: Postnasal drainage. denies: Dental decay (got tooth with temporary filling fixed; doing better) - Cardiovascular Cardiovascular: reports: Exertional dyspnea, Decr. exercise tolerance, Other (lost balance last night). denies: Palpitations, Chest pain, Edema - Respiratory Respiratory: reports: SOB with exertion, Other (left rib tenderness/pain with palpation). denies: SOB at rest - Gastrointestinal Gastrointestinal: reports: Good appetite. denies: Diarrhea - Musculoskeletal Musculoskeletal: reports: Muscle pain, Back pain, Muscle aches, Stiffness, Limited range of motion, Muscle weakness, Joint pain, Joint swelling - Integumentary Integumentary: reports: Dryness - Neurological Neurological: reports: General weakness, Numbness - Psychiatric Psychiatric: reports: Depression, Anxiety - Endocrine Endocrine: reports: Diabetes type 2 - Hematologic/Lymphatic Hematologic/Lymph: reports: Anemia (8.7), Recurrent infections - All Other Systems All Other Systems: reports: Reviewed and negative Physical Exam - Vital Signs Pulse Rate: 55 Respiratory Rate: 18 O2 Saturation: 96 Blood Pressure: 116/55 - Physical Exam General Appearance: positive: No acute distress, Alert Eyes Bilateral: positive: Normal inspection ENT: negative: Oral lesions, Dry mucous membranes Neck: positive: Trachea midline Cardiovascular: positive: Regular rate & rhythm Respiratory: positive: No respiratory distress, Breath sounds nml Abdomen: positive: Non-tender, Soft Skin: positive: Pallor, Dryness Extremities: positive: Other (see HPI left shoulder exam) Neurologic/Psychiatric: positive: Oriented x3, Mood/affect nml Palliative Care - POLST Patient has POLST: Yes POLST Status: DNR, Selective Treatment Pain: Pain improved (back pain; new acute left shoulder discomfort) Tiredness/Fatigue: Moderate (4-6) Drowsiness/Sedation: Mild (1-3) Nausea: None Anorexia: None Dyspnea: Mild (1-3) Depression: None Anxiety: Mild (1-3) Feelings of wellbeing/Perceived Quality of Life: Good, Acceptable, Improved Sleep: Sleeps well Constipation: No Performance Status: Patient does receive oversight with ADLs, does have a bench in the shower. Reports his functional status is continued to improve. He is walking better, his endurance has been better, though is quite painful first thing in the morning, he is getting up overall. - Palliative Care Discussion: Patient and somewhat rattled with patient's fall, likely it was most likely a minor injury. Patient does not demonstrate any significant sequela at this point. Though I did encourage him to use walker as could be problematic if he had a more serious fall. They are coping at home, they do see improvements, he is staying hydrated. They are very invested in their family and children, obviously these are priorities for them. They very much enjoyed their son's visit. Yisel continues to be a huge support for them both, patient has completed a POLST as DNR/DNI and selective treatments. Patient denies any anxiety or concerns regarding his current illness, is hoping for the best, but understands treatment is palliative in nature. Results - Lab Results Lab results reviewed: Yes Impression and Recommendations - Palliative Care Impression: This is a jenny 80-year-old gentleman with improved pain management of his back and left rib pain, continues to improve functionally as well. He is getting treatment for his recurrent stage IV squamous cell carcinoma of the lung, with plans for maintenance treatment of Keytruda every 3 weeks. Patient is in good spirits, has adequate social support. Patient did have a ground-level fall last night, with left shoulder injury, will continue to monitor. Palliative care continue provide support for pain and symptom management and anticipatory guidance Recommendations/Counseling Done: 1. Left shoulder pain. Patient most likely has a strain, does have some point tenderness but no signs or symptoms of breakage. Patient has good range of motion, able to weight-bear and assistant. Instructed to apply diclofenac ointment to left shoulder 2-3 times a day, use of heating pad 15 to 20 minutes 2-3 times a day, reviewed gentle range of motion and instructed to use walker for balance and safety for the next few days. He has been instructed to call if pain worsens, acknowledges and verbalizes understanding. 2. Muscle weakness. Patient has asked she had some improvement with his functional status, he is ambulating longer distances, demonstrating better endurance. He is able to bathe easier is mostly using a cane. We will see how patient progresses, may consider physical therapy referral. 3. Weight loss. This is multifactorial, he has gotten his tooth repaired, and is eating much better. He is still taking a supplement and pushing fluids, is feeling like he is doing better overall given his. 4. Hypomagnesia. Follow-up with oncology [facility], will get 1 g IV, instructed to increased his supplement 400 mg to twice daily and less experiences diarrhea. 5. Advanced care planning. Patient has multiple comorbidities, has good family support, but will need further long-term planning and support. Patient has a POLST with DN AR/DNI and selective treatments. Patient has a strong yisel and very much enjoys spending time with his family. Continue to support and patient in their coping mechanisms as we prepare for anticipatory decline in the future. 45 minutes Review of labs, oncology notes, coordination of care with oncology team. [id number] with counseling for symptom management, psychosocial support and anticipatory guidance
== END 2021-05-04 13:40 | disposition home or self-care (01) ==
LOC: PC 13:39
PROVIDERS: ATTEND Nurse Practitioner Adult Health
DX: Z51.5 Encounter for palliative care (principal); C34.12 Malignant neoplasm of upper lobe, left bronchus or lung; S00.81XD Abrasion of other part of head, subsequent encounter; S49.92XD Unspecified injury of left shoulder and upper arm, subsequent encounter; W19.XXXD Unspecified fall, subsequent encounter; M62.81 Muscle weakness (generalized); R63.4 Abnormal weight loss; E83.42 Hypomagnesemia; Z79.899 Other long term (current) drug therapy; Z66 Do not resuscitate
CPT/HCPCS: 99215

== ENCOUNTER 2021-05-25 13:52 | Outpatient (CLI) | payer MEDICARE, OTHER ==
--- NOTE | 2021-05-25 16:52 | CONSULTATION NOTE ---
Palliative Care Follow Up - Referral Referring Provider: Dr. 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 He has received chemotherapy, but had significant difficulties with pancytopenia and poor tolerance overall. He continues with low-grade anemia and hypomagnesia 1.1 despite increased oral magnesium. He continues to improve overall, has had significant back and left rib pain tenderness. This has continued to improve, but still has sharp shooting spasm-like pains happening 1-2 times an hour, that is quite bothersome for him. He has not needed any oxycodone, is using intermittent acetaminophen. He had had a fall last time I saw him on 05/04, his shoulder is since healed. Patient continues to be limited as far as functional status, as does have increasing back pain with ambulation of greater than 20 feet and afraid his feet are getting give out. He has been using a rolling walker with improved mobility. He does appear much more brighter, still quite pale, but feels like things are overall improved. Patient has second comorbidity of high risk prostate cancer since 02/2019. Had radiation the prostate 05/2019 and is on ADT by urology. Past Medical History: Hypertension, hypercholesteremia, CAD, atrial flutter, atrial fib, history of pneumonia, type 2 diabetes, GERD, chronic diarrhea which has improved, BPH, kidney stones, depression, osteoarthritis, fatigue, chronic back pain, past surgical history includes cholecystectomy, appendectomy lobectomy Port-A-Cath and cataracts Social History - Living Situation Living arrangement: At home Living Situation: With spouse/s.o., With family Support System: Patient lives at home with his jenny Rhonda, they have been over 53 years. They have 6 children with 2 in the home, including autistic son. They are [employer] and their cece is very important to them. They have large extended family on both sides, [place] Medications/Allergies - Medications Home Medications: Ambulatory Orders Medication Instructions Recorded Confirmed Cetirizine [ZyrTEC] 10 mg PO DAILY PRN 04/16/13 05/26/21 Tamsulosin HCl [Flomax] 0.4 mg PO BID 01/16/14 05/26/21 Atorvastatin Calcium [Lipitor] 80 mg PO QPM 10/21/14 05/26/21 Cholecalciferol (Vitamin D3) 1,000 unit PO DAILY 07/18/17 05/26/21 [Vitamin D3] Pantoprazole [Protonix] 40 mg PO DAILY 07/18/17 05/26/21 Ubidecarenone [Co Q-10] 100 mg PO DAILY 07/18/17 05/26/21 Metoprolol Tartrate 25 mg PO BID 07/15/19 05/26/21 Telmisartan [Micardis] 40 mg PO DAILY 07/15/19 05/26/21 Acetaminophen [Tylenol] 650 mg PO BID 02/25/20 05/26/21 Ascorbic Acid [Vitamin C] 1,000 mg PO DAILY 02/25/20 05/26/21 Aspirin 81 mg PO DAILY 02/25/20 05/26/21 Ipratropium/Albuterol [Combivent 1 puffs PO QID 02/25/20 05/26/21 Respimat] Iron,Carbonyl [Iron Chews] 27 mg PO DAILY 02/25/20 05/26/21 Magnesium Oxide [Magnesium] 400 mg PO BID 02/25/20 05/26/21 Multivitamin [Multivitamins] 1 cap PO DAILY 02/25/20 05/26/21 [place]-3/Dha/Epa/Fish Oil [Fish Oil 1 cap PO BID 02/25/20 05/26/21 1,000 mg Softgel] Rivaroxaban [Xarelto] 15 mg PO DAILY 02/25/20 05/26/21 Vit C/E/Zinc/Lutein/Zeaxanthin 1 tab PO DAILY 02/25/20 05/26/21 [Ocuvite Eye Health Gummies] Lidocaine/Prilocain 2.5% Cream 5 applic TOP UD #1 gm 12/28/20 05/26/21 [Emla 2.5% Cream] Prochlorperazine Maleate 10 mg PO Q6HR PRN #30 tab 12/28/20 05/26/21 [Compazine] ondansetron HCL [Ondansetron HCl] 8 mg PO BID PRN #30 tablet 12/28/20 05/26/21 Diphenoxylate/Atropine [Lomotil] 1 each PO Q6H PRN #90 tablet 01/26/21 05/26/21 oxyCODONE [Roxicodone] 2.5 - 5 mg PO Q4HR PRN 04/13/21 05/26/21 - Allergies Allergies/Adverse Reactions: Allergies Allergy/AdvReac Type Severity Reaction Status Date / Time hydrocodone bitartrate * Allergy shakes, Verified 04/06/21 13:35 [From Vicodin] halucinasions Review of Systems - Constitutional Constitutional: reports: Fatigue (improved but persistent), Weakness (improved some), Night sweats, Weight stable (179). denies: Fever, Chills - Ears, Nose & Throat Ears, Nose & Throat: reports: Postnasal drainage. denies: Dental decay (got tooth with temporary filling fixed; doing better) - Cardiovascular Cardiovascular: reports: Lightheadedness, Exertional dyspnea, Decr. exercise tolerance - Respiratory Respiratory: reports: SOB with exertion. denies: Cough, Wheezing, SOB at rest - Gastrointestinal Gastrointestinal: reports: Bloating, Early satiety, Good appetite (improved). denies: Diarrhea (improved) - Genitourinary Genitourinary: reports: Frequency - Musculoskeletal Musculoskeletal: reports: Muscle pain, Back pain, Muscle aches, Stiffness, Limited range of motion, Muscle weakness, Joint pain, Joint swelling, Assistive devices (uses rolling walker) - Integumentary Integumentary: reports: Dryness - Neurological Neurological: reports: General weakness, Numbness, Memory problems (mild) - Psychiatric Psychiatric: reports: Depression, Anxiety - Endocrine Endocrine: reports: Diabetes type 2 - Hematologic/Lymphatic Hematologic/Lymph: reports: Anemia (8.8) - All Other Systems All Other Systems: reports: Reviewed and negative Physical Exam - Vital Signs Temperature: 36.2 C Pulse Rate: 59 Respiratory Rate: 16 O2 Saturation: 98 (ra @ rest) Blood Pressure: 129/70 - Physical Exam General Appearance: positive: No acute distress, Alert Eyes Bilateral: positive: Normal inspection ENT: positive: No signs of dehydration Neck: positive: Trachea midline Cardiovascular: positive: Regular rate & rhythm Respiratory: positive: No respiratory distress, Breath sounds nml, Diminished in bases Abdomen: positive: Non-tender, Soft, Nml bowel sounds, Other (point tenderness to left lower rib area; can reproduce pain spasm by lifting arm up and over to right) Skin: positive: Pallor Extremities: positive: No pedal edema Neurologic/Psychiatric: positive: Oriented x3, Mood/affect nml, Weakness Palliative Care - POLST Patient has POLST: Yes POLST Status: DNR, Selective Treatment Pain: Pain improved, Location (still intermittent jabbing pain and tenderness in left rib; patient reports this pain has been halfway since surgery/bx describes under rib; may be injured nerve), Severity (when spasms 8/10; when still 0/10) Tiredness/Fatigue: Mild (1-3) Drowsiness/Sedation: Mild (1-3) Nausea: Mild (1-3) Anorexia: Mild (1-3) Dyspnea: Mild (1-3) Depression: Mild (1-3) Anxiety: Mild (1-3) Feelings of wellbeing/Perceived Quality of Life: Excellent, Acceptable, Improved Sleep: Sleeps well Constipation: Intermittent constipation (reports diarrhea resolving; needed to take MOM other day) Performance Status: Patient's functional status continues to improve, does have oversight with ADLs does have a bench in the shower. He is walking better using his rolling walker, does rest frequently can tolerate about 20 feet. Continues to be quite sedentary though been encouraged to be more active, is somewhat anxious as far as his stability. Declines physical therapy. - Palliative Care Discussion: Patient continues to improve, they are coping well at home. Patient has a completed POLST is a DNR/DNI and selective treatments. Patient denies any anxiety or concerns regarding his current illness, continues to hope for the best but does understand treatment is palliative in nature. Results - Lab Results Lab results reviewed: Yes Impression and Recommendations - Palliative Care Impression: This is a 80-year-old gentleman with improving back pain, continues with left intermittent rib pain but is improving functionally as well. 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 Patient is in good spirits, has recovered from his fall last time. Palliative care continue provide support for pain and symptom management and anticipatory guidance Recommendations/Counseling Done: 1. Left shoulder pain. This was a strain attributed to his fall 3 weeks ago. At this point in time he has good range of motion, and no further sequela. Does feel like this has improved. 2. Left rib pain. This is spasmodic in nature, suspect possible nerve injury. Patient reports this is long-term but has been more prevalent. Can be reproduced with patient lifting arm up and over to the right. Patient has used topical before, encouraged to use diclofenac cream at spot for 3-4 times a day see if this is improved. May also try Salonpas patch on on a.m. and off on p.m. over affected area as well as chronic lower back pain. Verbalized understanding instructions written. 3. Generalized weakness. Patient continues to improve functionally though remains quite limited. Is using a rolling walker. Counseling provided regarding proper fit and encourage progressive ambulation. Did offer physical therapy referral, patient has declined. 4. Anxiety. Patient is doing quite well, is feeling less anxious, with improved functionality, and lessening pain. Patient and have good support at home, declining further need for intervention. 5. Advanced care planning. Patient does understand his treatment is palliative in nature, continues to hope for the best, particularly with improving quality of life. Patient does have POLST with DN AR/DNI and selective treatments in place. We'll continue to follow and monitor for decline. 45 min Review of oncology notes, labs, [id number] with patient and for counseling for symptom management and psychosocial support and anticipatory guidance.
== END 2021-05-25 13:53 | disposition home or self-care (01) ==
LOC: PC 13:52
PROVIDERS: ATTEND Nurse Practitioner Adult Health
DX: Z51.5 Encounter for palliative care (principal); C34.12 Malignant neoplasm of upper lobe, left bronchus or lung; G89.3 Neoplasm related pain (acute) (chronic); D61.810 Antineoplastic chemotherapy induced pancytopenia; T45.1X5A Adverse effect of antineoplastic and immunosuppressive drugs, initial encounter; E83.42 Hypomagnesemia; C61 Malignant neoplasm of prostate; E11.9 Type 2 diabetes mellitus without complications; N40.1 Benign prostatic hyperplasia with lower urinary tract symptoms; R35.0 Frequency of micturition; F32.9 Major depressive disorder, single episode, unspecified; R53.83 Other fatigue; M54.9 Dorsalgia, unspecified; S43.402D Unspecified sprain of left shoulder joint, subsequent encounter; W19.XXXD Unspecified fall, subsequent encounter; R07.81 Pleurodynia; R53.1 Weakness; Z79.82 Long term (current) use of aspirin; Z79.51 Long term (current) use of inhaled steroids; Z79.899 Other long term (current) drug therapy
CPT/HCPCS: 99215

== ENCOUNTER 2021-06-15 08:57 | Outpatient (CLI) | payer MEDICARE, OTHER ==
--- NOTE | 2021-06-15 12:48 | CONSULTATION NOTE ---
Palliative Care Follow Up - Referral Referring Provider: Dr. Liu Mendoza Time of Visit: 1030 30 minutes Referral setting: 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 He has received chemotherapy but has significant difficulties with pancytopenia and poor tolerance overall. He continues with low-grade anemia and hypomagnesia despite increased oral magnesium and receiving IV magnesium. He does continue to improve with functional gains, is pleased his left-sided pain spontaneously disappeared with radiologist healing. He is getting better pain control from his lower back with some use of Salonpas. He is ambulating with his rolling walker, is sometimes using his cane. He is able to participate in more household tasks and his fatigue is improving. Patient has second comorbidity of high risk prostate cancer since 02/2019. He is on Megace for hot flashes, feels like the radiation to his prostate is finally reduced solving as far as his diarrhea is only needing loperamide at bedtime. 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 They have 6 children with 2 in the home, including autistic son. They are [employer] and their cece is very important to them, they have returned to attending some restoration services/mass. They have extended family on both sides, [place] Medications/Allergies - Medications Home Medications: Ambulatory Orders Medication Instructions Recorded Confirmed Cetirizine [ZyrTEC] 10 mg PO DAILY 04/16/13 06/15/21 Tamsulosin HCl [Flomax] 0.4 mg PO BID 01/16/14 06/15/21 Atorvastatin Calcium [Lipitor] 80 mg PO QPM 10/21/14 06/15/21 Cholecalciferol (Vitamin D3) 1,000 unit PO DAILY 07/18/17 06/15/21 [Vitamin D3] Pantoprazole [Protonix] 40 mg PO DAILY 07/18/17 06/15/21 Ubidecarenone [Co Q-10] 100 mg PO DAILY 07/18/17 06/15/21 Metoprolol Tartrate 25 mg PO BID 07/15/19 06/15/21 Telmisartan [Micardis] 40 mg PO DAILY 07/15/19 06/15/21 Acetaminophen [Tylenol] 1,300 mg PO BID 02/25/20 06/15/21 Ascorbic Acid [Vitamin C] 1,000 mg PO DAILY 02/25/20 06/15/21 Aspirin 81 mg PO DAILY 02/25/20 06/15/21 Ipratropium/Albuterol [Combivent 1 puffs PO QID 02/25/20 06/15/21 Respimat] Iron,Carbonyl [Iron Chews] 27 mg PO DAILY 02/25/20 06/15/21 Magnesium Oxide [Magnesium] 400 mg PO BID 02/25/20 06/15/21 Multivitamin [Multivitamins] 1 cap PO DAILY 02/25/20 06/15/21 [place]-3/Dha/Epa/Fish Oil [Fish Oil 2 cap PO DAILY 02/25/20 06/15/21 1,000 mg Softgel] Rivaroxaban [Xarelto] 15 mg PO DAILY 02/25/20 06/15/21 Vit C/E/Zinc/Lutein/Zeaxanthin 1 tab PO DAILY 02/25/20 06/15/21 [[facility]] Lidocaine/Prilocain 2.5% Cream 5 applic TOP UD #1 gm 12/28/20 06/15/21 [Emla 2.5% Cream] Prochlorperazine Maleate 10 mg PO Q6HR PRN #30 tab 12/28/20 06/15/21 [Compazine] ondansetron HCL [Ondansetron HCl] 8 mg PO BID PRN #30 tablet 12/28/20 06/15/21 Diphenoxylate/Atropine [Lomotil] 1 each PO Q6H PRN #90 tablet 01/26/21 06/15/21 Calcium Carb/Mag Ox/Zinc Sulf 1 tab PO DAILY 06/15/21 06/15/21 [Dfj-[id number] 334-134-5 mg Tab] Ipratropium Ace 1 spray NAYAN TID PRN 06/15/21 06/15/21 Loperamide HCl [Imodium A-D] 2 mg PO QPM 06/15/21 06/15/21 Megestrol Acetate 20 mg PO DAILY 06/15/21 06/15/21 - Allergies Allergies/Adverse Reactions: Allergies Allergy/AdvReac Type Severity Reaction Status Date / Time hydrocodone bitartrate * Allergy shakes, Verified 04/06/21 13:35 [From Vicodin] halucinasions Review of Systems - Constitutional Constitutional: reports: Fatigue, Weakness, Night sweats, Weight stable - Ears, Nose & Throat Ears, Nose & Throat: reports: Nasal congestion (improved with iprat. spray), Postnasal drainage. denies: Dental decay (got tooth with temporary filling fixed; doing better) - Cardiovascular Cardiovascular: reports: Lightheadedness, Exertional dyspnea, Decr. exercise tolerance - Respiratory Respiratory: reports: SOB with exertion. denies: Cough, Wheezing, SOB at rest - Gastrointestinal Gastrointestinal: reports: Diarrhea, Nausea, Vomiting, Bloating, Poor appetite, Early satiety - Musculoskeletal Musculoskeletal: reports: Muscle pain, Back pain, Muscle aches, Stiffness, Limited range of motion, Muscle weakness, Joint pain, Joint swelling - Integumentary Integumentary: reports: Dryness - Neurological Neurological: reports: General weakness, Numbness - Psychiatric Psychiatric: reports: Depression, Anxiety - Endocrine Endocrine: reports: Diabetes type 2 - Hematologic/Lymphatic Hematologic/Lymph: reports: Anemia, Recurrent infections - All Other Systems All Other Systems: reports: Reviewed and negative Physical Exam - Vital Signs Pulse Rate: 58 Respiratory Rate: 18 O2 Saturation: 99 Blood Pressure: 130/68 - Physical Exam General Appearance: positive: No acute distress, Alert Eyes Bilateral: positive: Normal inspection ENT: positive: No signs of dehydration Neck: positive: Trachea midline Cardiovascular: positive: Regular rate & rhythm Respiratory: positive: No respiratory distress, Breath sounds nml, Diminished in bases Abdomen: positive: Non-tender, Soft, Nml bowel sounds, Other (rounded) Skin: positive: Pallor, Dryness Extremities: positive: No pedal edema Neurologic/Psychiatric: positive: Oriented x3, Mood/affect nml Palliative Care - POLST Patient has POLST: Yes POLST Status: DNR, Selective Treatment Pain: Pain improved (left sided sharp shooting pain resolved; back pain no worse), Severity (2/10), Comment (using BID apap for osteoarthritic pain/back and salon pas to back) Tiredness/Fatigue: Mild (1-3) Drowsiness/Sedation: Mild (1-3) Nausea: None Anorexia: None Dyspnea: Mild (1-3) Depression: None Anxiety: Mild (1-3) Feelings of wellbeing/Perceived Quality of Life: Good, Acceptable, Improved Sleep: Sleeps well Constipation: No Performance Status: Patient continues to improve functionally, reports is doing his breakfast. Is ambulatory with a walker, occasionally using the cane for shorter distances. Declines outpatient physical therapy, though is encouraged to continue to add more distance and time for endurance. 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 He is quite pleased. He is somewhat surprised he is still here, reports he does his skin infections every month, and is ready to go. He though does recognize that his current quality of life is acceptable, and does worry as finances will be impacted for at the time he does . They feel like things are going well overall, encouraged at his continued improvement. Results - Lab Results Lab results reviewed: Yes Lab and Imaging Results: persistent hypomagnesia Impression and Recommendations - Palliative Care Impression: This is a 80-year-old gentleman with stage IV squamous cell carcinoma lung with maintenance Keytruda every 3 weeks. He is tolerating this fine, and is continue to improve functionally, as well as improving pain and symptom management. Palliative care continue provide support for pain and symptom management anticipatory guidance Recommendations/Counseling Done: 1. Left rib pain. This was spasmodic in nature, had trialed topical diclofenac, without much response. Does now report it is resolved after 2 years, with cece healing. He is quite pleased. 2. Chronic back pain. Patient is using the Salonpas with improved management, continues also with osteoarthritis multiple joint pain, managed with acetaminophen 1300 mg twice daily. Patient also has Diclofenac topical if needs as needed, has not needed to use oxycodone for several weeks. 3. Generalized weakness. Patient continues to improve functionally, though is limited is trying to push himself. Patient is declining physical therapy, though has been encouraged to be more active and continue to increase distance with ambulation. 4. Anxiety. Patient is doing quite well, reports feeling less anxious, is settling into his new schedule and feeling encouraged with his increased functionality and lessen pain. Patient and have good support at home. 5.Diarrhea. This is thought to be multifactorial, including late effects of radiation. Reports this is continue to improve, Having soft stools, less often, is using Imodium at bedtime. Is quite pleased with improvements. 6. Advanced care planning. Patient does understand treatment is palliative in nature, though is continue to respond and is encouraged. Patient does have a POLST with DNR and DNI and selective treatments in place. We will continue to follow and monitor for decline. We will decreased visits to every other treatment given his improvement 30 minutes with review of labs, oncology notes, [id number] for counseling for symptom management and psychosocial support
== END 2021-06-15 08:58 | disposition home or self-care (01) ==
LOC: PC 08:57
PROVIDERS: ATTEND Nurse Practitioner Adult Health
DX: Z51.5 Encounter for palliative care (principal); M54.9 Dorsalgia, unspecified; G89.29 Other chronic pain; R53.1 Weakness; F41.9 Anxiety disorder, unspecified; R19.7 Diarrhea, unspecified; C34.90 Malignant neoplasm of unspecified part of unspecified bronchus or lung; Z79.899 Other long term (current) drug therapy; Z66 Do not resuscitate
CPT/HCPCS: 99214

== ENCOUNTER 2021-07-27 11:09 | Outpatient (CLI) | payer MEDICARE, OTHER ==
--- NOTE | 2021-07-27 13:22 | CONSULTATION NOTE ---
Palliative Care Follow Up - Referral Referring Provider: Dr. 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 He had received chemotherapy but had significant difficulties with pancytopenia and poor tolerance overall. He continues with low-grade anemia and hypomagnesia, despite increased oral magnesium and receiving IV magnesium today he is 1.5. He does continue to improve with left-sided pain spontaneously disappeared, he continues to improve the functional gains, he has better control from his lower back with use of Salonpas. He is ambulating with his rolling walker, sometimes using his cane, he remains so quite sedentary, and is wondering about improvement. We did discuss recommendation for physical therapy. Patient has second comorbidity of high risk prostate cancer since 02/2019. He remains on Megace for hot flashes, his diarrhea is a long-term effect of the radiation, is finally starting to resolve. He needs loperamide mostly only at bedtime. He is in good spirits, he got a good report from the oncologist, that his disease is under control, and he will be on maintenance pembrolizumab q. 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 They have 6 children with 2 in the home, including an autistic son. They are Jainism and their cece is very important to them, they have returned to going to Sunday night mass. He does use his daily mass on line as well. They have extended family on both sides[place] Medications/Allergies - Medications Home Medications: Ambulatory Orders Medication Instructions Recorded Confirmed Cetirizine [ZyrTEC] 10 mg PO DAILY 04/16/13 07/27/21 Tamsulosin HCl [Flomax] 0.4 mg PO BID 01/16/14 07/27/21 Atorvastatin Calcium [Lipitor] 80 mg PO QPM 10/21/14 07/27/21 Cholecalciferol (Vitamin D3) 1,000 unit PO DAILY 07/18/17 07/27/21 [Vitamin D3] Pantoprazole [Protonix] 40 mg PO DAILY 07/18/17 07/27/21 Ubidecarenone [Co Q-10] 100 mg PO DAILY 07/18/17 07/27/21 Metoprolol Tartrate 25 mg PO BID 07/15/19 07/27/21 Telmisartan [Micardis] 40 mg PO DAILY 07/15/19 07/27/21 Acetaminophen [Tylenol] 1,300 mg PO BID 02/25/20 07/27/21 Ascorbic Acid [Vitamin C] 1,000 mg PO DAILY 02/25/20 07/27/21 Aspirin 81 mg PO DAILY 02/25/20 07/27/21 Ipratropium/Albuterol [Combivent 1 puffs PO QID 02/25/20 07/27/21 Respimat] Iron,Carbonyl [Iron Chews] 27 mg PO DAILY 02/25/20 07/27/21 Magnesium Oxide [Magnesium] 400 mg PO BID 02/25/20 07/27/21 Multivitamin [Multivitamins] 1 cap PO DAILY 02/25/20 07/27/21 [place]-3/Dha/Epa/Fish Oil [Fish Oil 2 cap PO DAILY 02/25/20 07/27/21 1,000 mg Softgel] Rivaroxaban [Xarelto] 15 mg PO DAILY 02/25/20 07/27/21 Vit C/E/Zinc/Lutein/Zeaxanthin 1 tab PO DAILY 02/25/20 07/27/21 [[facility]] Lidocaine/Prilocain 2.5% Cream 5 applic TOP UD #1 gm 12/28/20 07/27/21 [Emla 2.5% Cream] Prochlorperazine Maleate 10 mg PO Q6HR PRN #30 tab 12/28/20 07/27/21 [Compazine] ondansetron HCL [Ondansetron HCl] 8 mg PO BID PRN #30 tablet 12/28/20 07/27/21 Diphenoxylate/Atropine [Lomotil] 1 each PO Q6H PRN #90 tablet 01/26/21 07/27/21 Calcium Carb/Mag Ox/Zinc Sulf 1 tab PO DAILY 06/15/21 07/27/21 [Vik-[id number]-[id number] 334-134-5 mg Tab] Ipratropium [place] 1 spray NAYAN TID PRN 06/15/21 07/27/21 Loperamide HCl [Imodium A-D] 2 mg PO QPM 06/15/21 07/27/21 Megestrol Acetate 20 mg PO DAILY 06/15/21 07/27/21 - Allergies Allergies/Adverse Reactions: Allergies Allergy/AdvReac Type Severity Reaction Status Date / Time hydrocodone bitartrate * Allergy shakes, Verified 04/06/21 13:35 [From Vicodin] halucinasions Review of Systems - Constitutional Constitutional: reports: Fatigue (continues to improve), Weakness, Night sweats, Weight stable - Ears, Nose & Throat Ears, Nose & Throat: reports: Postnasal drainage - Cardiovascular Cardiovascular: reports: Lightheadedness (improved), Exertional dyspnea, Decr. exercise tolerance - Respiratory Respiratory: reports: SOB with exertion. denies: Cough, Wheezing, SOB at rest - Gastrointestinal Gastrointestinal: reports: Diarrhea (controlled with immodium nightly; lomotol x1 with roughage/salad triggered explosive diarrhea), Bloating, Early satiety. denies: Nausea - Musculoskeletal Musculoskeletal: reports: Muscle pain, Back pain, Muscle aches, Stiffness, Limited range of motion, Muscle weakness, Joint pain, Joint swelling - Integumentary Integumentary: reports: Dryness - Neurological Neurological: reports: General weakness, Memory problems (mild STM deficits) - Endocrine Endocrine: reports: Diabetes type 2 - Hematologic/Lymphatic Hematologic/Lymph: reports: Anemia (9.8) - All Other Systems All Other Systems: reports: Reviewed and negative Physical Exam - Vital Signs Temperature: 36.4 C Pulse Rate: 47 Respiratory Rate: 18 Blood Pressure: 145/55 - Physical Exam General Appearance: positive: No acute distress, Alert Eyes Bilateral: positive: Normal inspection ENT: positive: No signs of dehydration Cardiovascular: positive: Bradycardia Respiratory: positive: No respiratory distress Abdomen: positive: Non-tender, Soft, Obese Skin: positive: Pallor, Dryness Extremities: positive: No pedal edema Neurologic/Psychiatric: positive: Oriented x3, Mood/affect nml, Weakness Palliative Care - POLST Patient has POLST: Yes POLST Status: DNR, Selective Treatment Pain: Pain improved, Location (back pain), Severity (10), Pattern (worse with standing;) Tiredness/Fatigue: Mild (1-3) Drowsiness/Sedation: Mild (1-3) Nausea: None Anorexia: None Dyspnea: Mild (1-3) Depression: None Anxiety: None Feelings of wellbeing/Perceived Quality of Life: Good, Acceptable, Improved Sleep: Variable sleep pattern Constipation: No Performance Status: Patient's strength continues to improve, he is ambulating short distances in his house. He does have increased pain with standing, but is using walker to offload. Family is trying to encourage him to walk, he is willing to look at strengthening, discussed physical therapy referral given that his disease is doing well, and is expected to continue to improve. - Palliative Care Discussion: Patient is quite pleased, as he thought he was heading towards end-of-life event. He is feeling much better, there is much teasing about him doing more for himself and taking less advantage of being waited upon. He is hoping both for continued improved quality of life, as well as quantity, he wants to make it to his 82th birthday. Reports he is "I am in shock" with the good news and that he continues to improve. His 's observation is patient does fairly well unless he gets dehydrated, they have been concentrating on keeping him drinking. Patient is in good spirits, denies depression or anxiety. We did discuss as far as improving his overall health, physical therapy will keep him stronger, decrease his fall risk, and may be improve his quality of life and back pain. Results - Lab Results Lab results reviewed: Yes Lab and Imaging Results: Review of scans, showing no evidence of metastatic disease in abdomen or pelvis or significant changes, much improvement from his CT scan previously with resolution of pericardial effusion, almost complete resolution of previously noted bibasilar masslike consolidations and nodular opacities with mild residual bibasilar scarring and atelectasis. Patient's labs are fairly steady though he remains anemic at 9.8, hematocrit 28.9 and his BUN 31 magnesium 1.5 Impression and Recommendations - Palliative Care Impression: This is a jenny 80-year-old gentleman with stage IV squamous cell carcinoma of the lung with ongoing maintenance Keytruda every 3 weeks. He continues to tolerate this fairly well, though continues to have persistent hypomagnesia. Patient continues to improve functionally, is willing to try outpatient physical therapy for further support. Palliative care continue provide support for pain and symptom management, focus on quality of life issues as well as anticipatory guidance. Recommendations/Counseling Done: 1. Chronic back pain. Patient is using a generic Salonpas with continued improvement, also can continues with osteoarthritis multiple joint pain, managed with acetaminophen 1300 mg twice daily. Patient also has Dichlor phonic topical if needed, has not needed to use the oxycodone for several weeks. We also discussed if patient participates in physical therapy, may get some improvement as well. 2. Muscle weakness. Patient continues to improve functionally, though is limited. Patient had been declining physical therapy, has been encouraged to do more activity, son has been trying to get him to walk. We discussed how outpatient therapy can really improve functionality, and motivation, as well as use of equipment can move things along a bit quicker. Patient in agreement. They live on [facility] would be convenient for them. Referral is sent. 3. Anxiety. Patient is doing quite well, denies any anxiety, he is "in shock" with his continued good news. He does find himself starting be helpful, that he might make it to his 82th birthday. Patient and have good support at home. 4. Advanced care planning. Patient does understand the treatments palliative in nature, but is quite encouraged. Patient does have a POLST with DNR and DNI and selective treatments in place. Patient would want to transition to hospice if appropriate, continues to hope for the best, he is quite cece-based and continues to be thankful for miracles. 45 minutes Review of oncology notes, scans, labs, [id number] with patient for counseling regarding symptom management and psychosocial support as well as anticipatory guidance coordination of care with oncology, and referral to physical therapy
== END 2021-07-27 11:10 | disposition home or self-care (01) ==
LOC: PC 11:09
PROVIDERS: ATTEND Nurse Practitioner Adult Health
DX: Z51.5 Encounter for palliative care (principal); M54.9 Dorsalgia, unspecified; G89.29 Other chronic pain; M15.9 Polyosteoarthritis, unspecified; M62.81 Muscle weakness (generalized); F41.9 Anxiety disorder, unspecified; C34.12 Malignant neoplasm of upper lobe, left bronchus or lung; E83.42 Hypomagnesemia; Z79.899 Other long term (current) drug therapy; Z66 Do not resuscitate
CPT/HCPCS: 99215

== ENCOUNTER 2021-09-14 16:05 | Outpatient (CLI) | payer MEDICARE, OTHER ==
--- NOTE | 2021-09-15 08:31 | CONSULTATION NOTE ---
Palliative Care Follow Up - Referral Referring Provider: Dr. Liu Mendoza Time of Visit: 1430 45 min Referral setting: [facility] [place] Referral Reason: Anxiety/Back Pain/Lung CA - Information Sources Records reviewed: Previous records reviewed History/Review of Systems obtained from: Patient, Family ( Rhonda with him) Exam limitations: Clinical condition (anxiety and mild STM issues) - History of Present Illness Update Brief HPI Update: Is a 81-year-old gentleman who is receiving maintenance pembrolizumab for his recurrent stage IV squamous cell carcinoma of the left upper lung. He continues with low-grade anemia and hypomagnesia despite increased oral magnesium and receiving IV magnesium, again today at 1.5. Patient reports an exacerbation of his lower back pain, had seen his primary care provider Dr. Zuluaga, who ordered a CT scan of his back. Patient recently with CT scan 07/20 with no suspicious findings at that time, but given his underlying cancer diagnosis, he wanted to rule out any worsening issues. Patient is unable to identify any triggering factors, feels like he has been more sedentary. Patient also presents with increased weakness is in his lower legs, is using lidocaine patches, and has been quite sedentary over the last several weeks. Patient had gotten a physical therapy referral, and has put this off. Patient reports intermittent breathlessness, reports he is "panting all the time", though denies cough, O2 sats are 99%, no change in breath sounds. He is so acutely uncomfortable, and has not found any relief. Patient does have oxycodone, reminded him this would be appropriate to be able to assist with his pain management and quality of life. 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 Past surgical history includes cholecystectomy, appendectomy lobectomy Port-A-Cath and cataracts Social History - Living Situation Living arrangement: At home Living Situation: With spouse/s.o., With family Support System: Patient lives at home with his Rhonda, they have been 53 years and just celebrated their anniversary. They have 6 children with 2 in the home including an autistic son. They are L[employer] and their cece is very important to them, they continue to seek this out and depend on this for coping. They have extended family on both sides, [place], [place] and gardens. Medications/Allergies - Medications Home Medications: Ambulatory Orders Medication Instructions Recorded Confirmed Cetirizine [ZyrTEC] 10 mg PO DAILY 04/16/13 09/15/21 Tamsulosin HCl [Flomax] 0.4 mg PO BID 01/16/14 09/15/21 Atorvastatin Calcium [Lipitor] 80 mg PO QPM 10/21/14 09/15/21 Cholecalciferol (Vitamin D3) 1,000 unit PO DAILY 07/18/17 09/15/21 [Vitamin D3] Pantoprazole [Protonix] 40 mg PO DAILY 07/18/17 09/15/21 Ubidecarenone [Co Q-10] 100 mg PO DAILY 07/18/17 09/15/21 Metoprolol Tartrate 25 mg PO BID 07/15/19 09/15/21 Telmisartan [Micardis] 40 mg PO DAILY 07/15/19 09/15/21 Acetaminophen [Tylenol] 1,300 mg PO BID 02/25/20 09/15/21 Ascorbic Acid [Vitamin C] 1,000 mg PO DAILY 02/25/20 09/15/21 Aspirin 81 mg PO DAILY 02/25/20 09/15/21 Ipratropium/Albuterol [Combivent 1 puffs PO QID 02/25/20 09/15/21 Respimat] Iron,Carbonyl [Iron Chews] 27 mg PO DAILY 02/25/20 09/15/21 Magnesium Oxide [Magnesium] 400 mg PO BID 02/25/20 09/15/21 Multivitamin [Multivitamins] 1 cap PO DAILY 02/25/20 09/15/21 [place]-3/Dha/Epa/Fish Oil [Fish Oil 2 cap PO DAILY 02/25/20 09/15/21 1,000 mg Softgel] Rivaroxaban [Xarelto] 15 mg PO DAILY 02/25/20 09/15/21 Vit C/E/Zinc/Lutein/Zeaxanthin 1 tab PO DAILY 02/25/20 09/15/21 [Ocuvite [facility] Gummies] Lidocaine/Prilocain 2.5% Cream 5 applic TOP UD #1 gm 12/28/20 09/15/21 [Emla 2.5% Cream] Prochlorperazine Maleate 10 mg PO Q6HR PRN #30 tab 12/28/20 09/15/21 [Compazine] ondansetron HCL [Ondansetron HCl] 8 mg PO BID PRN #30 tablet 12/28/20 09/15/21 Diphenoxylate/Atropine [Lomotil] 1 each PO Q6H PRN #90 tablet 01/26/21 09/15/21 Calcium Carb/Mag Ox/Zinc Sulf 1 tab PO DAILY 06/15/21 09/15/21 [Fis-Dba-Xjjt 334-134-5 mg Tab] Ipratropium [place] 1 spray NAYAN TID PRN 06/15/21 09/15/21 Loperamide HCl [Imodium A-D] 2 mg PO QPM 06/15/21 09/15/21 Megestrol Acetate 20 mg PO DAILY 06/15/21 09/15/21 Lidocaine 1 patch TOP DAILY 09/15/21 09/15/21 Senna [Senokot] 1 - 2 tab PO DAILY PRN 09/15/21 09/15/21 oxyCODONE [Roxicodone] 2.5 - 5 mg PO Q4HR PRN 09/15/21 09/15/21 - Allergies Allergies/Adverse Reactions: Allergies Allergy/AdvReac Type Severity Reaction Status Date / Time hydrocodone bitartrate * Allergy shakes, Verified 04/06/21 13:35 [From Vicodin] halucinasions Review of Systems - Constitutional Constitutional: reports: Fatigue (continues to improve), Weakness (worsening; reports in LE), Night sweats, Weight loss (178) - Ears, Nose & Throat Ears, Nose & Throat: reports: Postnasal drainage - Cardiovascular Cardiovascular: reports: Lightheadedness (improved), Exertional dyspnea, Decr. exercise tolerance - Respiratory Respiratory: reports: SOB with exertion. denies: Cough, Wheezing, SOB at rest - Gastrointestinal Gastrointestinal: reports: Diarrhea (controlled with immodium nightly; decreased over time), Bloating, Early satiety. denies: Nausea - Genitourinary Genitourinary: reports: Urgency, Incontinence - Musculoskeletal Musculoskeletal: reports: Muscle pain, Back pain (worsening; pending CT scan), Muscle aches, Stiffness, Limited range of motion, Muscle weakness, Joint pain, Joint swelling - Integumentary Integumentary: reports: Dryness - Neurological Neurological: reports: General weakness, Memory problems (mild STM deficits) - Psychiatric Psychiatric: reports: Depression, Anxiety - Endocrine Endocrine: reports: Diabetes type 2 - Hematologic/Lymphatic Hematologic/Lymph: reports: Anemia (10.1) - All Other Systems All Other Systems: reports: Reviewed and negative Physical Exam - Vital Signs Pulse Rate: 60 Respiratory Rate: 18 O2 Saturation: 99 (ra @ rest) - Physical Exam General Appearance: positive: No acute distress, Alert Eyes Bilateral: positive: Normal inspection ENT: positive: No signs of dehydration Neck: positive: Trachea midline Cardiovascular: positive: Regular rate & rhythm Respiratory: positive: No respiratory distress, Diminished in bases. negative: Wheezes, Rales, Rhonchi Abdomen: positive: Non-tender, Soft, Obese Skin: positive: Pallor, Dryness Extremities: positive: No pedal edema Neurologic/Psychiatric: positive: Oriented x3, Mood/affect nml, Weakness Palliative Care - POLST Patient has POLST: Yes POLST Status: DNR, Selective Treatment Pain: Pain worsening, Location (lower back), Severity (off the scale on one to 10), Comment (demonstrating pain behaviors getting from sitting to standing; reports relieved with laying down) Tiredness/Fatigue: Mild (1-3) Drowsiness/Sedation: None Nausea: None Anorexia: None Dyspnea: Moderate (4-6) Depression: Mild (1-3) Anxiety: Moderate (4-6) Feelings of wellbeing/Perceived Quality of Life: Fair, Acceptable Sleep: Variable sleep pattern Constipation: No Performance Status: Patient has had a decline in functional status over the last few weeks, with increased pain has been more sedentary. Ambulating only short distances. Patient had been doing more for himself. Does have a shower chair, and support at home as needed from his son and . - Palliative Care Discussion: Patient is somewhat disappointed with his decline, he had been feeling much better. Though suspect this is more related to chronic degenerative process, will be getting CT scan to rule out any malignant related lesions. Patient continues to depend on his cece and family for support, remains grateful and surprised he is still with this. Results - Lab Results Lab results reviewed: Yes Impression and Recommendations - Palliative Care Impression: This is a 81-year-old gentleman with stage IV squamous cell carcinoma lung with ongoing maintenance pembrolizumab every 3 weeks. He has presented with an acute exacerbation of his lower back pain, does not appear to have been triggered by any traumatic event. Patient is getting CT scan to PCP. Patient is usually impacted functionally related to this, have recommended increased attention to pain control. Patient was improving functionally, encouraged to continue to follow through on physical therapy particularly now could add an element for pain control. Palliative care continue provide support for pain and symptom management, focus on quality of life issues as well as anticipatory guidance Recommendations/Counseling Done: 1. Acute on chronic back pain. Patient was able to get lidocaine patches through the base through his , had been having improved pain management, with managing with acetaminophen 1300 mg twice daily. Encouraged to reinitiate oxycodone 2.5 mg to 5 mg every 4 hours as needed to improve functionality. Patient has been quite sedentary, with increased lower extremity weakness and decrease in his ambulatory status. Encouraged to try 2.5 mg and if no response or remains problematic, to take second half after 30 minutes, will let me know if they need new prescription. Again encouraged physical therapy referral, agreed after he gets his CT scan. NeedsPatient concerned about constipation, has had a slow down from his radiation induced diarrhea. Patient also is getting them. Did order senna encouraged 1-2 tabs if no BM in 2448 hrs., verbalized understanding. 2. Muscle weakness. Patient had been improving functionally, we did discuss son would be able to participate with patient to encourage home program as well. does not want to take another task on, and gets quite frustrated with him. We will continue to monitor. 3. Anxiety. Patient continues with persistent anxiety, now perseverating on back pain. They have not heard back on scheduling appointment, given DI scheduling line encouraged to call from there and. 4. Metastatic lung cancer. Patient continues with maintenance pembrolizumab, treatment is palliative in nature. Patient is pleased with ongoing response. 5. Advanced care planning. Patient again understands treatments are palliative in nature, is quite encouraged though now distressed with increased back pain. Patient does have POLST with DNR DNI and selective treatments in place. Patient depends on his cece in the context for support and is not afraid of dying. Patient would transition to hospice if appropriate, but continues to hope for the best. 45 minutes with review of labs, scans, oncology notes, [id number] with patient and for counseling regarding pain and symptom management and anticipatory guidance
== END 2021-09-14 16:06 | disposition home or self-care (01) ==
LOC: PC 16:05
PROVIDERS: ATTEND Nurse Practitioner Adult Health
DX: Z51.5 Encounter for palliative care (principal); M54.50 Low back pain, unspecified; R41.3 Other amnesia; F41.9 Anxiety disorder, unspecified; M62.81 Muscle weakness (generalized); R06.02 Shortness of breath; R63.4 Abnormal weight loss; C34.12 Malignant neoplasm of upper lobe, left bronchus or lung; Z79.899 Other long term (current) drug therapy; Z66 Do not resuscitate
CPT/HCPCS: 99215

== ENCOUNTER 2021-09-22 10:36 | Outpatient (CLI) | payer MEDICARE, OTHER ==
--- NOTE | 2021-09-22 14:23 | CT Report ---
PROCEDURE: LUMBAR SPINE WO INDICATIONS: LUMBAR BACK PAIN TECHNIQUE: Noncontrast 3 mm thick sections acquired from the T12 level to the sacrum. Sagittal and coronal refo rmats were constructed. For radiation dose reduction, the following was used: automated exposure co ntrol, adjustment of mA and/or kV according to patient size. COMPARISON: None. FINDINGS: Mild L2 anterior wedging is unchanged from abdomen/pelvis CT 07/20/2021. Otherwise normal lumbar verte bral body height and alignment. No suspicious lytic or blastic osseous lesion. Disc height loss with degenerative endplate changes at every level in the lumbar spine including scattered small Schmorl no izaiah. Prevertebral and paraspinous soft tissues demonstrate no acute abnormality. Diffuse aortic and i liac atherosclerosis. 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 T12-L1: No spinal canal or neural foraminal stenosis. L1-L2: No spinal canal or neural foraminal stenosis. L2-L3: Disc bulge flattens the ventral thecal sac without spinal canal stenosis. Mild bilateral ne ural foraminal narrowing due to foraminal components of the disc bulge, buckling of ligamentum flavum , and facet hypertrophy. L3-L4: Mild spinal canal stenosis due to disc bulge and a superimposed protrusion with contribution from buckling of ligamentum flavum and facet hypertrophy. These factors combine to produce mild bila teral neural foraminal stenosis. L4-L5: Diffuse disc bulge flattens and indents the ventral thecal sac. There is mild spinal canal s tenosis as a result, along with contribution from buckling of the ligamentum flavum and facet hypertr ophy. These factors combine to produce moderate bilateral neural foraminal stenosis. L5-S1: Diffuse disc bulge and a superimposed protrusion with mild displacement of the descending S1 nerve roots. Moderate to severe bilateral neural foraminal stenosis with flattening of the exiting L 5 nerve roots. IMPRESSION: Moderate lower lumbar spine degenerative changes. Correlate for any corresponding radicular symptoms. Reviewed by: Adair Winston MD on 09/22/2021 2:22 PM PST Approved by: Adair Winston MD on 09/22/2021 2:22 PM PST Station ID: [id number]
== END 2021-09-22 10:37 | disposition home or self-care (01) ==
LOC: DI 10:36
PROVIDERS: ATTEND Internal Medicine
DX: M47.816 Spondylosis without myelopathy or radiculopathy, lumbar region (principal); M51.36 Other intervertebral disc degeneration, lumbar region; M48.061 Spinal stenosis, lumbar region without neurogenic claudication; M51.27 Other intervertebral disc displacement, lumbosacral region; M48.07 Spinal stenosis, lumbosacral region; M51.46 Schmorl's nodes, lumbar region; I70.0 Atherosclerosis of aorta; I72.3 Aneurysm of iliac artery; I70.203 Unspecified atherosclerosis of native arteries of extremities, bilateral legs

== ENCOUNTER 2021-12-07 14:00 | Outpatient (CLI) | payer MEDICARE, OTHER ==
--- NOTE | 2021-12-07 20:59 | CONSULTATION NOTE ---
Palliative Care Follow Up - Referral Referring Provider: Dr. 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 Patient had had an exacerbation of his lower back pain, but no suspicious findings were found on a CT scan 07/20/2021. Patient has been referred to physical therapy, and had been improving over time, until this last week. He is unclear if this was triggered by a trauma event, but rates his pain as 7-8 out of 10, with getting from sitting to standing, worsens with bending or twisting, and relief of pressure when laying flat. Patient reports this also affects his balance, and is quite discouraged as he had been doing fairly well. He is using acetaminophen 2 mg twice daily scheduled, has added a third dose intermittently with some relief. He also has lidocaine patches that provide some relief. Patient otherwise has remained fairly low symptom burden, does report a 5 pound weight loss over the last few weeks, but no change in intake. Patient's spirits are up, though discouraged with recent pain episode. 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 Past surgical history includes cholecystectomy, appendectomy, lobectomy, Port-A-Cath and cataracts Social History - Living Situation Living arrangement: At home Living Situation: With spouse/s.o., With family Support System: Patient lives at home with his Rhonda, they have been 53 years and to celebrate their anniversary. They have 6 children with 2 in the home including autistic son. They are Sabianist and her cece is very important to him, they continue to seek this out and depend on this for coping. They have extended family on both sides, [place] and [place]. Medications/Allergies - Medications Home Medications: Ambulatory Orders Medication Instructions Recorded Confirmed Cetirizine [ZyrTEC] 10 mg PO DAILY 04/16/13 10/26/21 Tamsulosin HCl [Flomax] 0.4 mg PO BID 01/16/14 10/26/21 Atorvastatin Calcium [Lipitor] 80 mg PO QPM 10/21/14 10/26/21 Cholecalciferol (Vitamin D3) 1,000 unit PO DAILY 07/18/17 10/26/21 [Vitamin D3] Pantoprazole [Protonix] 40 mg PO DAILY 07/18/17 10/26/21 Ubidecarenone [Co Q-10] 100 mg PO DAILY 07/18/17 10/26/21 Metoprolol Tartrate 25 mg PO BID 07/15/19 10/26/21 Telmisartan [Micardis] 40 mg PO DAILY 07/15/19 10/26/21 Acetaminophen [Tylenol] 1,300 mg PO BID 02/25/20 10/26/21 Ascorbic Acid [Vitamin C] 1,000 mg PO DAILY 02/25/20 10/26/21 Aspirin 81 mg PO DAILY 02/25/20 10/26/21 Ipratropium/Albuterol [Combivent 1 puffs PO QID 02/25/20 10/26/21 Respimat] Iron,Carbonyl [Iron Chews] 27 mg PO DAILY 02/25/20 10/26/21 Magnesium Oxide [Magnesium] 400 mg PO BID 02/25/20 10/26/21 Multivitamin [Multivitamins] 1 cap PO DAILY 02/25/20 10/26/21 [place]-3/Dha/Epa/Fish Oil [Fish Oil 2 cap PO DAILY 02/25/20 10/26/21 1,000 mg Softgel] Rivaroxaban [Xarelto] 15 mg PO DAILY 02/25/20 10/26/21 Vit C/E/Zinc/Lutein/Zeaxanthin 1 tab PO DAILY 02/25/20 10/26/21 [Ocuvite Eye [facility]] Lidocaine/Prilocain 2.5% Cream 5 applic TOP UD #1 gm 12/28/20 10/26/21 [Emla 2.5% Cream] Prochlorperazine Maleate 10 mg PO Q6HR PRN #30 tab 12/28/20 10/26/21 [Compazine] ondansetron HCL [Ondansetron HCl] 8 mg PO BID PRN #30 tablet 12/28/20 10/26/21 Diphenoxylate/Atropine [Lomotil] 1 each PO Q6H PRN #90 tablet 01/26/21 10/26/21 Calcium Carb/Mag Ox/Zinc Sulf 1 tab PO DAILY 06/15/21 10/26/21 [Nyy-[id number]-[id number] 334-134-5 mg Tab] Ipratropium [place] 1 spray NAYAN TID PRN 06/15/21 10/26/21 Loperamide HCl [Imodium A-D] 2 mg PO QPM 06/15/21 10/26/21 Lidocaine 1 patch TOP DAILY 09/15/21 10/26/21 Senna [Senokot] 1 - 2 tab PO DAILY PRN 09/15/21 10/26/21 oxyCODONE [Roxicodone] 2.5 - 5 mg PO Q4HR PRN 09/15/21 10/26/21 - Allergies Allergies/Adverse Reactions: Allergies Allergy/AdvReac Type Severity Reaction Status Date / Time hydrocodone bitartrate * Allergy shakes, Verified 04/06/21 13:35 [From Vicodin] halucinasions Review of Systems - Constitutional Constitutional: reports: Fatigue, Weakness, Night sweats, Weight loss - Ears, Nose & Throat Ears, Nose & Throat: reports: Postnasal drainage - Cardiovascular Cardiovascular: reports: Lightheadedness (improved;often related to decreased fluid intake), Exertional dyspnea, Decr. exercise tolerance - Respiratory Respiratory: reports: SOB with exertion. denies: Cough, Wheezing, SOB at rest - Gastrointestinal Gastrointestinal: reports: Diarrhea (controlled with immodium nightly; decreased over time), Bloating, Early satiety. denies: Nausea - Genitourinary Genitourinary: reports: Urgency, Incontinence - Musculoskeletal Musculoskeletal: reports: Muscle pain, Back pain (had improved with PT; exacerbation this last week), Muscle aches, Stiffness, Limited range of motion, Muscle weakness, Joint pain - Integumentary Integumentary: reports: Dryness - Neurological Neurological: reports: General weakness, Memory problems (mild STM deficits) - Psychiatric Psychiatric: reports: Depression, Anxiety - Endocrine Endocrine: reports: Diabetes type 2 - Hematologic/Lymphatic Hematologic/Lymph: reports: Anemia (8.8). denies: Recurrent infections - All Other Systems All Other Systems: reports: Reviewed and negative Physical Exam - Physical Exam General Appearance: positive: No acute distress, Alert Eyes Bilateral: positive: No scleral icterus ENT: positive: No signs of dehydration Neck: positive: Trachea midline Cardiovascular: positive: Regular rate & rhythm Respiratory: positive: No respiratory distress, Diminished in bases, Rales (fine crackles LLL) Abdomen: positive: Non-tender, Soft, Obese Skin: positive: Pallor Extremities: positive: No pedal edema Neurologic/Psychiatric: positive: Oriented x3, Mood/affect nml Palliative Care - POLST Patient has POLST: Yes POLST Status: DNR, Selective Treatment Pain: Pain worsening, Location (back; had improved now with exacerbation), Severity (7-8) Tiredness/Fatigue: Mild (1-3) Drowsiness/Sedation: None Nausea: None Anorexia: None Dyspnea: None Depression: None Anxiety: None Feelings of wellbeing/Perceived Quality of Life: Good, Acceptable Sleep: Sleeps well Constipation: Yes, Intermittent constipation Performance Status: Patient has been benefiting from physical therapy, reports have been getting stronger and ambulating longer distances. Does use walker when out, but furniture walks at home. Patient does need some standby assist to time for ADLs, with recent exacerbation of pain has declined his functional abilities previous to this last week. - Palliative Care Discussion: Patient had improved briefly with physical therapy and with strength, had been encouraged, not discouraged after week of increased pain. Still remains grateful for his extended survival, and family support. Is in good spirits desp ite his setback. Patient and very family oriented and find much support through their yarsani and cece community. Results - Lab Results Lab results reviewed: Yes Impression and Recommendations - Palliative Care Impression: This is a 81-year-old gentleman with stage IV squamous cell carcinoma lung with ongoing maintenance pembrolizumab every 3 weeks. He does have an exacerbation more recently of his lower back pain, but has benefited from physical therapy. Patient encouraged to continue to follow through. Palliative care continue provide support for pain and symptom management, focus on quality of life issues, psychosocial support and anticipatory guidance. Recommendations/Counseling Done: 1. Acute on chronic back pain. Patient using lidocaine patches, continues with acetaminophen, encouraged with exacerbation of pain to increase acetaminophen to 1000 mg 3 times daily for 1 week. Patient also encouraged to use heating pad, does have spasmatic component. Encouraged to continue with physical therapy maybe will add ultrasound or other pain relief measures. Patient verbalized understanding. 2. Muscle weakness. Patient has been improving functionally, has had a setback this last week, encouraged to continue to add activity as tolerated. 3. Anxiety. Patient continues with persistent anxiety, is a class half empty kind of mo per his own report. Continue to provide psychosocial support and reframing focusing on the positive. 4. Metastatic lung cancer. Patient continues with maintenance pembrolizumab, treatment is palliative in nature. Patient is pleased with ongoing response. 5. Advanced care planning. Patient understands treatments are palliative in nature, is quite grateful for his continued quantity and quality of life. Patient does have POLST with DNR/DNI and selective treatments in place. Patient continues to depend on his cece in the context of support. Patient continues to hope for the best, but has full supportive family that would transition to hospice at home if needed. 45 minutes with review of labs, oncology notes, [id number] with patient and for counseling regarding pain and symptom management and anticipatory guidance
== END 2021-12-07 14:01 | disposition home or self-care (01) ==
LOC: PC 14:00
PROVIDERS: ATTEND Nurse Practitioner Adult Health
DX: Z51.5 Encounter for palliative care (principal); M54.50 Low back pain, unspecified; G89.29 Other chronic pain; M62.81 Muscle weakness (generalized); F41.9 Anxiety disorder, unspecified; C34.12 Malignant neoplasm of upper lobe, left bronchus or lung; R63.4 Abnormal weight loss; Z79.899 Other long term (current) drug therapy; Z66 Do not resuscitate
CPT/HCPCS: 99215

== ENCOUNTER 2021-12-13 15:25 | Outpatient (CLI) | payer MEDICARE, OTHER | END 2021-12-13 15:26 | disposition short-term general hospital (02) | LOC: EMS 15:25 | DX: M54.50 Low back pain, unspecified (principal) | CPT/HCPCS: A0425; A0429 ==

== ENCOUNTER 2022-09-06 13:01 | Outpatient (CLI) | payer MEDICARE, OTHER ==
--- NOTE | 2022-09-06 17:51 | XRAY Report ---
PROCEDURE: Cervical Spine 2 View INDICATIONS: CERVICAL SPINE STENOSIS TECHNIQUE: 3 view(s) of the cervical spine were acquired. COMPARISON: None FINDINGS: Bones: No fractures or dislocations to the C6 level. C7 and T1 were not seen due to patient positio cielo. In the neutral position, there is trace anterolisthesis C2-3, C3-4, C4-5. There is facet sclero sis at C2-3 and at least unilateral facet ankylosis at C3-4. The C5-6 level was not well seen on flex ion. No significant changes in alignment during flexion or extension. No suspicious bony lesions. Soft tissues: No prevertebral soft tissue swelling. Dorsal soft tissue dystrophic calcification at the C6 level. There are heavy carotid calcifications. IMPRESSION: 1. Mild multilevel cervical listhesis in neutral positioning without change in flexion or extension. Reviewed by: Tana Aviles MD on 09/06/2022 5:49 PM PST Approved by: Tana Aviles MD on 09/06/2022 5:49 PM PST Station ID: [id number]
--- NOTE | 2022-09-07 09:37 | CT Report ---
PROCEDURE: CERVICAL SPINE WO INDICATIONS: CERVICAL STENOSIS TECHNIQUE: Noncontrast 3 mm thick sections acquired from the skull base to the T4 level. Sagittal and coronal r eformats were then constructed. For radiation dose reduction, the following was used: automated exp osure control, adjustment of mA and/or kV according to patient size. COMPARISON: Cervical spine radiographs performed earlier the same day. CTA neck 07/15/2019. FINDINGS: Image quality: Excellent. Bones: No acute fractures or dislocations. There is grade 1 anterolisthesis of C3 on C4 measuring 2 mm as well as 1 to 2 mm grade 1 anterolisthesis of C4 on C5 and 1 to 2 mm retrolisthesis of C6 on C7 . Chronic osseous fusion of the right C3-4 lateral masses is noted. Visualized superior ribs are inta ct. Sternotomy wires are noted. At C2-3, there is bilateral uncovertebral joint and facet hypertrophy resulting in mild to moderate l eft and mild right neural foraminal narrowing without significant spinal canal stenosis. At C3-4, 2 mm grade 1 anterolisthesis of C3 on C4 as well as bilateral uncovertebral joint hypertroph y and right facet hypertrophy result in moderate narrowing of the left neural foramen and mild narrow ing of the right neural foramen significant spinal canal stenosis. At C4-5, 1 mm anterolisthesis of C4 on C5 as well as bilateral uncovertebral joint and facet hypertro phy result in moderate narrowing of the left neural foramen and mild narrowing of the right neural fo ramen without significant spinal canal stenosis. At C5-6, mild posterior disc-osteophyte complex as well as bilateral uncovertebral joint and facet hy pertrophy result in moderate left neural foraminal narrowing, mild right neural foraminal narrowing, and mild narrowing of the central spinal canal. At C6-7, 1 mm grade 1 retrolisthesis of C6 on C7 as well as bilateral uncovertebral joint and facet h ypertrophy result in mild to moderate left and mild right neural foraminal narrowing without signific ant spinal canal stenosis. At C7-T1, there is no significant spinal canal stenosis or neuroforaminal narrowing. Soft tissues: Prevertebral soft tissues are normal in thickness. No paravertebral hematomas. Emphys ematous changes are noted in the lung apices bilaterally. Cardiac pacemaker is partially imaged. IMPRESSION: 1.Mild to moderate multilevel degenerative disc disease and uncovertebral joint and facet hypertrophy as described in detail in the body of the report. 2.Mild to moderate multilevel neural foraminal narrowing is generally greater on the left than on the right, and is most notable and moderate in severity at the left C4-5 level. 3.No high-grade spinal canal stenosis. Reviewed by: Liu Grant MD on 09/07/2022 9:36 AM PST Approved by: Liu Grant MD on 09/07/2022 9:36 AM PST Station ID: [id number]
== END 2022-09-06 13:02 | disposition home or self-care (01) ==
LOC: DI 13:01
PROVIDERS: ATTEND Internal Medicine
DX: M47.812 Spondylosis without myelopathy or radiculopathy, cervical region (principal); M48.02 Spinal stenosis, cervical region; M43.12 Spondylolisthesis, cervical region; M50.31 Other cervical disc degeneration, high cervical region

== ENCOUNTER 2023-01-31 18:17 | Observation (INO) | payer MEDICARE, OTHER ==
[2023-01-31 18:57] LABS: BASOPHILS % (AUTO) 0.6 %; EOSINOPHILS # (AUTO) 0.1 10^3/uL (0.0-0.7); EOSINOPHILS % (AUTO) 2.6 %; HCT - HEMATOCRIT 32.1 % (42.0-52.0); HGB - HEMOGLOBIN 10.6 g/dL (14.0-18.0); LYMPHOCYTES # (AUTO) 0.9 10^3/uL (1.5-3.5); LYMPHOCYTES % (AUTO) 17.6 %; MEAN CORPUSCULAR HEMOGLOBIN 32.5 pg (27.0-31.0); MEAN CORPUSCULAR VOLUME 98.5 fL (80.0-94.0); MEAN PLATELET VOLUME 9.1 fL (7.4-11.4); MONOCYTES # (AUTO) 0.6 10^3/uL (0.0-1.0); MONOCYTES % (AUTO) 10.5 %; NEUTROPHILS # (AUTO) 3.7 10^3/uL (1.5-6.6); NEUTROPHILS % (AUTO) 68.5 %; PLT - PLATELET COUNT 217 10^3/uL (130-450); RED BLOOD COUNT 3.26 10^6/uL (4.70-6.10); RED CELL DISTRIBUTION WIDTH 12.7 % (12.0-15.0); WHITE BLOOD COUNT 5.3 x10^3/uL (4.8-10.8)
[2023-01-31 19:06] LABS: INR 1.5 (0.8-1.2); PT - PROTHROMBIN TIME 16.1 secs (9.9-12.6)
[2023-01-31 19:09] LABS: ALBUMIN/GLOBULIN RATIO 1.4 (1.0-2.2); BILIRUBIN,TOTAL 0.6 mg/dL (0.2-1.0); CALCIUM 9.2 mg/dL (8.5-10.3); CREATININE 1.1 mg/dL (0.6-1.2); POTASSIUM 3.9 mmol/L (3.5-5.0); TOTAL PROTEIN 6.8 g/dL (6.7-8.2)
--- NOTE | 2023-01-31 19:33 | ED Physician Documentation ---
History of Present Illness - Stated complaint Stated Complaint: STROKE-LIKE SYMPTOMS - Chief complaint Chief Complaint: Neuro - History obtained from History obtained from: Patient, Family () - Additonal information Additional information: 82yM with pmh afib on eliquis, prostate CA s/p seed therapy, psh pacemaker, p/w R eye painless blurry vision for over three days. patient states he woke on levin nday needing to use the bathroom and walked into the wall. he noted a "wavy feeling in the right eye" at that time that has persisted. also with BL pressure headache. patient has appointment with developmental psychologist Sunday am PD PAST MEDICAL HISTORY - Past Medical History Past Medical History: Yes Cardiovascular: Hypertension, High cholesterol, Coronary artery disease, Atrial flutter, Atrial fibrillation Respiratory: Pneumonia Neuro: None Endocrine/Autoimmune: Type 2 diabetes GI: GERD, Chronic diarrhea : Benign prostate hypertrophy, Kidney stones HEENT: None Psych: Depression Musculoskeletal: Osteoarthritis, Fatigue, Chronic back pain Derm: Other Other Past Medical History: SQUAMOUS CELL CARCINO STAGE 4... - Past Surgical History Past Surgical History: Yes General: Cholecystectomy, Appendectomy Cardiovascular: Lobectomy, Other HEENT: Cataracts - Present Medications Home Medications: Ambulatory Orders Medication Instructions Recorded Confirmed Tamsulosin HCl [Flomax] 0.4 mg PO BID 01/16/14 01/31/23 Pantoprazole [Protonix] 40 mg PO DAILY 07/18/17 01/31/23 Metoprolol Tartrate 37.5 mg PO BID 07/15/19 01/31/23 Telmisartan [Micardis] 20 mg PO DAILY 07/15/19 01/31/23 Ipratropium/Albuterol [Combivent 1 puffs PO QID 02/25/20 01/31/23 Respimat] [place]-3/Dha/Epa/Fish Oil [Fish Oil 1 cap PO DAILY 02/25/20 02/01/23 1,000 mg Softgel] Rivaroxaban [Xarelto] 15 mg PO DAILY 02/25/20 01/31/23 Vit C/E/Zinc/Lutein/Zeaxanthin 1 tab PO DAILY 02/25/20 01/31/23 [Leixir Eye Health Gummies] Ipratropium [place] 1 spray NAYAN TID PRN 06/15/21 01/31/23 Aspirin Chewable [[place] R 81 mg PO Q48H #15 tab 02/01/23 Aspirin] Atorvastatin Calcium 80 mg PO HS #60 tab 02/01/23 Cholecalciferol (Vitamin D3) 1 cap PO DAILY 02/01/23 02/01/23 [Vitamin D3] Ferrous Sulfate [Feosol] 1 tab PO DAILY 02/01/23 02/01/23 Magnesium Oxide 1 tab PO DAILY 02/01/23 02/01/23 Multivitamin with Minerals 1 tab PO DAILY 02/01/23 02/01/23 [Multivitamins with Minerals] - Allergies Allergies/Adverse Reactions: Allergies Allergy/AdvReac Type Severity Reaction Status Date / Time hydrocodone bitartrate * Allergy shakes, Verified 01/31/23 18:32 [From Vicodin] halucinasions - Social History Does the pt smoke?: No Smoking Status: Never smoker Does the pt drink ETOH?: No Does the pt have substance abuse?: No - Immunizations Immunizations are current?: Yes - POLST Patient has POLST: Yes PD ED PE NORMAL - Vitals Vital signs reviewed: Yes - General General: Alert and oriented X 3, No acute distress, Well developed/nourished - HEENT HEENT: Atraumatic, PERRL, EOMI, Moist mucous membranes, Pharynx benign, Other (tonometer showed IOP 15 R eye, 15 left eye. visual acuity 20/25 to L eye, 20/200 R eye) - Neck Neck: Supple, no meningeal sign - Cardiac Cardiac: RRR - Respiratory Respiratory: No respiratory distress, Clear bilaterally - Derm Derm: Normal color, Warm and dry - Neuro Neuro: Alert and oriented X 3, food packer 2-12 intact, No motor deficit, No sensory deficit, Normal speech, Other (ambulatory with cane at baseline. normal cerebellar testing. patient expressed pain with R extraocular eye movements) Eye Opening: Spontaneous Motor: Obeys Commands Verbal: Oriented GCS Score: 15 Results - Vitals Vitals: Vital Signs - 24 hr 01/31/23 01/31/23 21:16 21:30 Heart Rate 69 60 Respiratory 17 18 Rate Blood Pressure 133/64 H O2 Saturation 100 100 Oxygen O2 Source Room air - Labs Labs: Laboratory Tests 01/31/23 01/31/23 01/31/23 18:43 18:43 18:43 WBC 5.3 RBC 3.26 L Hgb 10.6 L Hct 32.1 L MCV 98.5 H MCH 32.5 H MCHC 33.0 RDW 12.7 Plt Count 217 MPV 9.1 Neut # (Auto) 3.7 Lymph # (Auto) 0.9 L [place] # (Auto) 0.6 Eos # (Auto) 0.1 Baso # (Auto) 0.0 Absolute Nucleated RBC 0.00 Nucleated RBC % 0.0 ESR PT 16.1 H INR 1.5 H Sodium 143 Potassium 3.9 Chloride 109 Carbon Dioxide 28 Anion Gap 6.0 BUN 22 H Creatinine 1.1 Estimated GFR (MDRD) 64 L Glucose 141 H Calcium 9.2 Total Bilirubin 0.6 AST 30 ALT 28 Alkaline Phosphatase 56 C-Reactive Protein Total Protein 6.8 Albumin 4.0 Globulin 2.8 Albumin/Globulin Ratio 1.4 Lipase 48 01/31/23 01/31/23 18:43 18:43 WBC RBC Hgb Hct MCV MCH MCHC RDW Plt Count MPV Neut # (Auto) Lymph # (Auto) [place] # (Auto) Eos # (Auto) Baso # (Auto) Absolute Nucleated RBC Nucleated RBC % ESR 24 H PT INR Sodium Potassium Chloride Carbon Dioxide Anion Gap BUN Creatinine Estimated GFR (MDRD) Glucose Calcium Total Bilirubin AST ALT Alkaline Phosphatase C-Reactive Protein 1.5 H Total Protein Albumin Globulin Albumin/Globulin Ratio Lipase PD Medical Decision Making - ED course ED course: 82-year-old man presented to the ED with right eye vision loss and headache for the past 3 to 4 days. Her doctors at [facility] requested CT scan to evaluate for stroke. His exam is remarkable for isolated R eye vision loss, photophobia, and pain with eye movement, without increased intraocular pressure. CT head and cervical spine with angiography ordered. Lab work including cbc, abdominal panel, coags ordered as well. Anemia 10.6 stable from previous. Labwork otherwise unremarkable. CTA head/neck uncovered no acute pathology. we do not have MRI or echo overnight. d/w patient and recommended out d/w Dr. Fagan, [place] neurologist industrial relations specialist who recommends MRI head/neck and echo. recommends continue asa 81 every other day, xarelto daily, and increasing back to 80 atorvastatin daily since he has been taking half dose (atorva 40) prior to this. ESR/CRP added to assess for possible giant cell arteritis, however patient is not experiencing extreme unilateral pain therefore this is less likely. [facility] pacer/defibrillator is MRI compatible per phone call Tian, our [facility]F had with Haritha at [facility] based on his pacemaker card info. plan to admit to observation for MRI/echo then have him discharged to f/u with his developmental psychologist this Sunday. 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 Departure - Departure Disposition: ED Place in Observation Clinical Impression: Headache, Vision loss of right eye Condition: Serious Discharge Date/Time: 01/31/23 23:00
--- OUTSIDE RECORDS SUMMARY | 2023-01-31 19:37 | EXTERNAL MEDICAL SUMMARY RPT | Continuity of Care Document ---
Author Name Unknown Address [address] [place] [address] Phone Organization [facility] [place] Address [address] [place] [address] Phone Problems date description facility 2022-11-23 12:22 Hyperlipidemia, [facility] 2022-11-23 12:22 Paroxysmal atrial fibrillation [facility] Results/Labs test date author facility value unit interpretation Result panel 1 (unknown) (no date) (unknown) (unknown) 0 /ul (unknown ) (unknown) (no date) (unknown) (unknown) 0.4 % (unknown ) (unknown) (no date) (unknown) (unknown) 1.7 % (unknown ) (unknown) (no date) (unknown) (unknown) 10.0 g/dl (unknown ) (unknown) (no date) (unknown) (unknown) 10.7 % (unknown ) (unknown) (no date) (unknown) (unknown) 100 /ul (unknown ) (unknown) (no date) (unknown) (unknown) 1000 /ul (unknown ) (unknown) (no date) (unknown) (unknown) 12.3 % (unknown ) (unknown) (no date) (unknown) (unknown) 13.4 % (unknown ) (unknown) (no date) (unknown) (unknown) 2.95 x10 6/ul (unknow n) (unknown) (no date) (unknown) (unknown) 268 x10 3/ul (unknow n) (unknown) (no date) (unknown) (unknown) 29.4 % (unknown ) (unknown) (no date) (unknown) (unknown) 33.8 pg (unknown ) (unknown) (no date) (unknown) (unknown) 33.9 % (unknown ) (unknown) (no date) (unknown) (unknown) 5800 /ul (unknown ) (unknown) (no date) (unknown) (unknown) 7.8 x10 3/ul (unknow n) (unknown) (no date) (unknown) (unknown) 74.9 % (unknown ) (unknown) (no date) (unknown) (unknown) 800 /ul (unknown ) (unknown) (no date) (unknown) (unknown) 99.7 fl (unknown ) Result panel 2 (unknown) (no date) (unknown) (unknown) > 60 ml/min (unknown ) (unknown) (no date) (unknown) (unknown) > 60 ml/min (unknown ) (unknown) (no date) (unknown) (unknown) 0.4 mg/dl (unknown ) (unknown) (no date) (unknown) (unknown) 0.99 mg/dl (unknown ) (unknown) (no date) (unknown) (unknown) 1.5 mg/dl (unknown ) (unknown) (no date) (unknown) (unknown) 1.7 (units unknown) (unknown) (unknown) (no date) (unknown) (unknown) 101 mmol/l (unknown ) (unknown) (no date) (unknown) (unknown) 109 mg/dl (unknown ) (unknown) (no date) (unknown) (unknown) 109 mg/dl (unknown ) (unknown) (no date) (unknown) (unknown) 112 mg/dl (unknown ) (unknown) (no date) (unknown) (unknown) 112 mg/dl (unknown ) (unknown) (no date) (unknown) (unknown) 142 mmol/l (unknown ) (unknown) (no date) (unknown) (unknown) 197 mg/dl (unknown ) (unknown) (no date) (unknown) (unknown) 197 mg/dl (unknown ) (unknown) (no date) (unknown) (unknown) 2.4 g/dl (unknown ) (unknown) (no date) (unknown) (unknown) 23 mg/dl (unknown ) (unknown) (no date) (unknown) (unknown) 23.2 (units unknown) (unknown) (unknown) (no date) (unknown) (unknown) 24 iu/l (unknown ) (unknown) (no date) (unknown) (unknown) 29 mmol/l (unknown ) (unknown) (no date) (unknown) (unknown) 30 iu/l (unknown ) (unknown) (no date) (unknown) (unknown) 33 mg/dl (unknown ) (unknown) (no date) (unknown) (unknown) 33 mg/dl (unknown ) (unknown) (no date) (unknown) (unknown) 37 mg/dl (unknown ) (unknown) (no date) (unknown) (unknown) 37 mg/dl (unknown ) (unknown) (no date) (unknown) (unknown) 4.0 g/dl (unknown ) (unknown) (no date) (unknown) (unknown) 4.2 mmol/l (unknown ) (unknown) (no date) (unknown) (unknown) 6.4 g/dl (unknown ) (unknown) (no date) (unknown) (unknown) 70 u/l (unknown ) (unknown) (no date) (unknown) (unknown) 9.3 mg/dl (unknown )
[2023-01-31] MEDS ORDERED: iohexoL-300 100 ML VIAL ONE (19:52)
--- NOTE | 2023-01-31 21:08 | CT Report ---
PROCEDURE: ANGIO HEAD W/WO INDICATIONS: R eye vision loss, headache CONTRAST: 80mL Omni 300 TECHNIQUE: Precontrast 4.5 mm thick angled axial sections acquired from the foramen magnum to the vertex. Afte r the administration of intravenous contrast, 1 mm thick sections acquired through the [place] is. Postcontrast 4.5 mm thick sections then re-acquired from the foramen magnum to the vertex. 3-di mensional kongiun-wtvvybggs-ohzwdnxqsf (MIP) and/or volume rendering reformats were acquired of the c entral intracranial vasculature. For radiation dose reduction, the following was used: automated ex posure control, adjustment of mA and/or kV according to patient size. COMPARISON: CT head 07/16/2019 FINDINGS: Image quality: Excellent. BRAIN: CSF spaces: There is mild to moderate cerebral volume loss with prominence of the ventricles and sul ci. Basal cisterns are patent. No extra-axial fluid collections. Brain: No intracranial hemorrhage, mass, or mass effect. Beck-white matter interface is preserved. T here are subcortical and periventricular white matter hypodensities consistent with mild to moderate chronic small vessel ischemic changes. No abnormal intracranial enhancement. Skull and face: Calvarium and facial bones appear intact, without suspicious lesions. Orbits appear normal. Sinuses: Sinuses and mastoids are clear. HEAD CT ANGIOGRAPHY: Anterior circulation: Intracranial internal carotid arteries are normal in size and appear patent bi laterally. There is mild atherosclerotic calcification along the cavernous segments of the internal carotid arteries. The paired anterior cerebral arteries appear patent bilaterally. The anterior com municating artery also appears patent. The middle cerebral arteries appear patent bilaterally. No hi gh-grade stenosis, occlusion, or filling defects. No cerebral aneurysms identified. Posterior circulation: Visualized portions of the vertebral arteries appear patent and join to form a patent basilar artery. There is a right dominant vertebral basilar system. 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 The posterior cerebral arter ies appears patent bilaterally. No high-grade stenosis, occlusion, or filling defects. IMPRESSION: 1. No acute intracranial abnormality. 2. Mild to moderate cerebral volume loss and chronic white matter small vessel ischemic changes. 3. No high-grade stenosis or occlusion of the central intracranial arteries. 4. 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 Reviewed by: Deepak Holm MD on 01/31/2023 9:07 PM PDT Approved by: Deepak Holm MD on 01/31/2023 9:07 PM PDT Station ID: [id number]
--- NOTE | 2023-01-31 21:14 | CT Report ---
PROCEDURE: ANGIO NECK W INDICATIONS: R eye vision loss, headache CONTRAST: 80mL Omni 300 TECHNIQUE: After the administration of intravenous contrast, 1.5 mm axial sections acquired from the aortic arch to the [place] of [place]. Coronal 3-D maximum intensity projection (MIP) and/or volume rendering ref ormats were then performed. For radiation dose reduction, the following was used: automated exposur e control, adjustment of mA and/or kV according to patient size. COMPARISON: Concurrent CTA of the head. FINDINGS: Image quality: Excellent. 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 The aortic arch measures up to 3.3 cm at the vertex. The proximal descending aorta measures up to 3.1 cm. The great vessels demonstrate a four-vessel aortic arch with separate origin of the le ft vertebral artery as they arise from the aortic arch. The origins of the common carotid arteries a ppear patent. The common carotid arteries demonstrate normal caliber and courses. There is bulky dima cified plaque at the carotid bifurcations bilaterally with narrowing of less than 50% in the carotid bulbs. Degenerative The internal carotid arteries demonstrate normal calibers and courses. Posterior circulation: The origins of the vertebral arteries both appear patent. The more superior extracranial portions of both vertebral arteries also demonstrate normal courses and calibers. They join to form a patent basilar artery. Soft tissues: Visualized thorax demonstrates moderate centrilobular and paraseptal emphysematous kirsten nges. Bones: No suspicious bony lesions. Visualized cervical spine demonstrates straightening of the cerv ical lordosis. There is multilevel degenerative disc disease and facet joint arthropathy. IMPRESSION: 1. Bilateral bulky calcified plaque at the carotid bifurcations with narrowing of less than 50% in th e carotid bulbs. 2. No high-grade stenosis in the vertebral arteries. 3. 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 The estimate of stenosis included in the report of the imaging study was calculated using the NASCET method Reviewed by: Deepak Holm MD on 01/31/2023 9:12 PM PDT Approved by: Deepak Holm MD on 01/31/2023 9:12 PM PDT Station ID: [id number]
[2023-01-31] MEDS ORDERED: iohexoL-300 100 ML VIAL IVP ONE (21:55)
[2023-01-31] MEDS ORDERED: ONDANSETRON 4 MG/2 ML VIAL IVP PRN (22:32)
[2023-01-31] MEDS ORDERED: ACETAMINOPHEN 325 MG TABLET PO PRN (22:32)
[2023-01-31] MEDS ORDERED: SODIUM CHLORIDE FLUSH 0.9% 10 ML SYRINGE IVP PRN (22:32)
--- NOTE | 2023-01-31 22:49 | HISTORY & PHYSICAL EXAMINATION ---
Chief Complaint - Chief Complaint Chief Complaint: Blurry vision History of Present Illness - Admitted From Admitted From:: Home - History Obtained From Records Reviewed: Yes History obtained from: Pateint, his Key[place], Er MD Exam Limitations: none - History of Present Illness HPI Comment/Other: As per ER MD "82-year-old man presented to the ED with right eye vision loss and headache for the past 3 to 4 days. Her doctors at [facility] CT scan to evaluate for stroke. His exam is remarkable for isolated R eye vision loss, photophobia, and pain with eye movement, without increased intraocular pressure. CT head and cervical spine with angiography ordered. Lab work including cbc, abdominal panel, coags ordered as well. Anemia 10.6 stable from previous. Labwork otherwise unremarkable. CTA head/neck uncovered no acute pathology. we do not have MRI or echo overnight. d/w patient and recommended out d/w Dr. Fagan, [place] neurologist trailers and motor homes salesperson who recommends MRI head/neck and echo. recommends continue asa 81 every other day, xarelto daily, and increasing back to 80 atorvastatin daily since he has been taking half dose (atorva 40) prior to this. ESR/CRP added to assess for possible giant cell arteritis, however patient is not experiencing extreme unilateral pain therefore this is less likely. [facility] pacer/defibrillator is MRI compatible per phone call Tian, our KITCHEN BATH DESIGNER had with Haritha at [facility] based on his pacemaker card info. plan to admit to observation for MRI/echo then have him discharged to f/u with his excellence leader this Sunday. 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 Patient undergoing immunotherapy and was told by his cancer doc to come to ER because of vision changes Patient denies any weakness, moving all 4 ext, has re huatism of spine, knee pain walks with a cane, other crespo very active and sharp for his age. Also has hx of parosymal A fib has been on Xarelto and Asa QOD. Lipitor 40 mg along with micardis, allergic to Hydromporphone and oxycodone. History - Past Medical History Cardiovascular: reports: Hypertension, High cholesterol, Coronary artery disease, Atrial flutter, Atrial fibrillation Respiratory: reports: Pneumonia Neuro: reports: None Endocrine/Autoimmune: reports: Type 2 diabetes GI: reports: GERD, Chronic diarrhea : reports: Benign prostate hypertrophy, Kidney stones HEENT: reports: None Psych: reports: Depression Musculoskeletal: reports: Osteoarthritis, Fatigue, Chronic back pain Derm: reports: Other MRSA Hx?: No Other Past Medical History: SQUAMOUS CELL CARCINO STAGE 4... - Past Surgical History General: reports: Cholecystectomy, Appendectomy Cardiovascular: reports: Lobectomy, Other HEENT: reports: Cataracts - Family & Social History Family History: Mother: , CVA/TIA ( of stroke 61), Father: , Cancer Family History Comment/Other: He reports his mother had a stroke in her early 50s which she from. He also reports that his grandmother had cardiac problems. He denies any other family history. Living Situation: With spouse/s.o., With family Social History Notes: He lives alone with his . 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 He smoked 2 cigars a day for approximately 20 years but quit quite a few years ago. He drinks alcohol rarely and only on special occasions. - POLST Patient has POLST: Yes Meds/Allgy - Home Medications Home Medications: Ambulatory Orders Medication Instructions Recorded Confirmed Tamsulosin HCl [Flomax] 0.4 mg PO BID 01/16/14 01/31/23 Atorvastatin Calcium [Lipitor] 40 mg PO QPM 10/21/14 01/31/23 Pantoprazole [Protonix] 40 mg PO DAILY 07/18/17 01/31/23 Metoprolol Tartrate 37.5 mg PO BID 07/15/19 01/31/23 Telmisartan [Micardis] 20 mg PO DAILY 07/15/19 01/31/23 Aspirin 81 mg PO UD 02/25/20 01/31/23 Ipratropium/Albuterol [Combivent 1 puffs PO QID 02/25/20 01/31/23 Respimat] [place]-3/Dha/Epa/Fish Oil [Fish Oil 2 cap PO DAILY 02/25/20 01/31/23 1,000 mg Softgel] Rivaroxaban [Xarelto] 15 mg PO DAILY 02/25/20 01/31/23 Vit C/E/Zinc/Lutein/Zeaxanthin 1 tab PO DAILY 02/25/20 01/31/23 [[facility] G[facility]mi] Ipratropium [place] 1 spray NAYAN TID PRN 06/15/21 01/31/23 - Allergies Allergies/Adverse Reactions: Allergies Allergy/AdvReac Type Severity Reaction Status Date / Time hydrocodone bitartrate * Allergy shakes, Verified 01/31/23 18:32 [From Vicodin] halucinasions Review of Systems - Eyes Eyes: reports: Blurred vision Prior Level of Functionality: Independent with ADL Exam - Vital Signs Vital Signs: Vital Signs x48h Temp Pulse Resp BP Pulse Ox 01/31/23 22:38 60 15 99 01/31/23 21:30 60 18 133/64 H 100 01/31/23 21:16 69 17 100 01/31/23 19:27 18 01/31/23 19:24 60 150/73 H 99 01/31/23 19:23 19 100 01/31/23 18:43 19 01/31/23 18:28 36 C L 60 16 139/60 H 96 - Physical Exam General Appearance: positive: No acute distress, Alert Eyes Bilateral: positive: Normal inspection, EOMI ENT: positive: ENT inspection nml, Pharynx nml Neck: positive: Nml inspection, Thyroid nml Cardiovascular: positive: No murmur, No gallop Abdomen: positive: Non-tender, No organomegaly Back: positive: Nml inspection Neurologic/Psychiatric: positive: Oriented x3, CN's nml (2-12), Motor nml, Sensation nml Sepsis Event Note (H) - Evaluation Current Stage of Sepsis: Ruled out Conclusion/Plan - Problem List (1) Atrial fibrillation Conclusion/Plan: Xarelto ]Rate controlled Echo ordered Qualifiers: Atrial fibrillation type: paroxysmal Qualified Code(s): I48.0 - Paroxysmal atrial fibrillation (2) Coronary artery disease Conclusion/Plan: Asa and statin Last stress test unremarkable in last 2 years Qualifiers: Coronary Disease-Associated Artery/Lesion type: bypass graft [place] vs. transplanted heart: unspecified whether [place] or transplanted heart Associated angina: without angina Qualified Code(s): I25.810 - Atherosclerosis of coronary artery bypass graft(s) without angina pectoris (3) Hypertension Conclusion/Plan: Continue micardis Qualifiers: Hypertension type: essential hypertension Qualified Code(s): I10 - Essential (primary) hypertension (4) Prostate cancer Conclusion/Plan: On immunotherpay no complaints at this time (5) TIA (transient ischemic attack) Conclusion/Plan: CT scan and CTA negative ASA Lipitor Xarelto MRI in am will need to call rep to check pacemaker post MRI (6) Vision loss of right eye Conclusion/Plan: Has appointment for Opthalmology in am - Lab Results Fish Bones: 01/31/23 18:43 01/31/23 18:43 - Diagnostic Imaging Results Diagnostic Imaging Results: positive: Prelim report reviewed
[2023-02-01] MEDS: SODIUM CHLORIDE FLUSH 0.9% 10 ML SYRINGE IVP SCH ×2 (00:55→08:14)
[2023-02-01 06:15] LABS: BASOPHILS % (AUTO) 0.5 %; EOSINOPHILS # (AUTO) 0.1 10^3/uL (0.0-0.7); EOSINOPHILS % (AUTO) 2.5 %; HCT - HEMATOCRIT 29.7 % (42.0-52.0); HGB - HEMOGLOBIN 9.7 g/dL (14.0-18.0); LYMPHOCYTES # (AUTO) 0.7 10^3/uL (1.5-3.5); LYMPHOCYTES % (AUTO) 12.9 %; MEAN CORPUSCULAR HEMOGLOBIN 32.2 pg (27.0-31.0); MEAN CORPUSCULAR HGB CONC 32.7 g/dL (32.0-36.0); MEAN CORPUSCULAR VOLUME 98.7 fL (80.0-94.0); MEAN PLATELET VOLUME 9.7 fL (7.4-11.4); MONOCYTES # (AUTO) 0.7 10^3/uL (0.0-1.0); MONOCYTES % (AUTO) 12.9 %; NEUTROPHILS % (AUTO) 70.7 %; PLT - PLATELET COUNT 195 10^3/uL (130-450); RED BLOOD COUNT 3.01 10^6/uL (4.70-6.10); RED CELL DISTRIBUTION WIDTH 12.9 % (12.0-15.0); WHITE BLOOD COUNT 5.7 x10^3/uL (4.8-10.8)
[2023-02-01 06:23] LABS: CALCIUM 8.9 mg/dL (8.5-10.3); POTASSIUM 3.8 mmol/L (3.5-5.0)
[2023-02-01 07:10] LABS: BILIRUBIN,URINE NEGATIVE (NEGATIVE); GLUCOSE, URINE (UA) NEGATIVE (NEGATIVE); KETONES,URINE (UA) NEGATIVE (NEGATIVE); LEUKOCYTE ESTERASE, URINE NEGATIVE (NEGATIVE); NITRITE,URINE NEGATIVE (NEGATIVE); OCCULT BLOOD,URINE NEGATIVE (NEGATIVE); PROTEIN,URINE NEGATIVE (NEGATIVE); UROBILINOGEN,URINE 0.2 (NORMAL) E.U./dL (NORMAL)
[2023-02-01 07:15] LABS: CLARITY,URINE CLEAR (CLEAR)
[2023-02-01] MEDS ORDERED: LOSARTAN 50 MG TABLET PO SCH (09:00)
[2023-02-01] MEDS ORDERED: VIT C PO SCH (09:00)
[2023-02-01] MEDS ORDERED: [UNRECOGNIZED DRUG - OTHER] PO SCH (09:00)
[2023-02-01] MEDS ORDERED: LUTEIN PO SCH (09:00)
[2023-02-01] MEDS ORDERED: ZINC PO SCH (09:00)
[2023-02-01] MEDS ORDERED: ZEAXANTHIN PO SCH (09:00)
[2023-02-01] MEDS ORDERED: TAMSULOSIN 0.4 MG CAPSULE PO SCH (09:00)
[2023-02-01] MEDS ORDERED: PANTOPRAZOLE 40 MG TABLET PO SCH (09:00)
[2023-02-01] MEDS ORDERED: ASPIRIN CHEW 81 MG TABLET PO SCH (09:00)
[2023-02-01] MEDS ORDERED: METOPROLOL TARTRATE 25 MG TABLET PO SCH (09:00)
[2023-02-01] MEDS ORDERED: APIXABAN 5 MG TABLET PO SCH (09:00)
--- NOTE | 2023-02-01 11:00 | PHARMACY PROGRESS NOTE ---
- Best Possible Medication History Admit Date and Time: 01/31/23 7921 Processed by: Pharmacy Medication History completed: Yes Patient Interview: Completed Secondary Source(s): Pharmacy records As the person ultimately responsible for medication therapy, providers are able to order a medication from an existing home medication list in [facility] via the "Reconcile Routine" prior to Confirmation of that medication by sales support assistant. Such practice is discouraged except when the physician, in their clinical judgment, deems that a medical need exists for a medication without regard to previous use.
--- NOTE | 2023-02-01 14:08 | Discharge Plan ---
Discharge Plan Problem Reviewed?: Yes Disposition: Home, Self Care Condition: Serious Prescriptions: Atorvastatin Calcium 80 mg PO HS #60 tab Aspirin Chewable [[facility] [place] R Aspirin] 81 mg PO Q48H #15 tab Diet: Low Sodium Activity Restrictions: Activity as Tolerated Shower Restrictions: No Driving Restrictions: Yes Health Concerns: You were placed into the hospital for testing regarding a cause of your right eye vision change. The Echocardiogram showed that you have a strong heart muscle, and no clots were seen inside the heart, that may have broken off and caused the vision problem. Even though you have an MRI-compatible pacemaker, this hospital does not have the application support consultant or pacemaker software to adjust your pacemaker to the settings needed during an MRI. I called Dr. Fagan, the same Neurologist who was contacted about you yesterday when you were in the emergency room, and I told him about this snag for you getting an MRI here. Dr Fagan said that you did not need to be transferred for an MRI to another hospital, but that you need the MRI to be done as an outpatient, at a facility that is larger and has a Corrective Therapist plus the proper pacemaker computer equipment, to adjust your pacemaker during an MRI and then re-program it back to its previous settings after the MRI. The Neurologist recommend that you take 1 baby aspirin every other day, and remain on your anticoagulant medicine, and to now take Atorvastatin 80 mg every evening. You may resume all your other usual medications too. Keep your appointment to your eye doctor SATURNINO. You should not be doing anything strenuous, and you are restricted from driving because of this new vision problem. Plan of Treatment: As above. Care Goals: Improvement in symptoms and stabilization of the goals. Assessment: The patient understands the recommendations and plan. Additional Instructions or Follow Up instructions: If you have new or worsening symptoms, call your PCP, or your eye doctor for advice, or come to the ER. No Smoking: If you smoke, Please STOP! Call for help. Follow-up with: Naman Zuluaga MD [Primary Care Provider] -
[2023-02-01 14:59] VITALS: BP 146/80
--- NOTE | 2023-02-01 18:42 | DISCHARGE SUMMARY ---
Discharge Summary Admit Date: 01/31/23 Discharge Date: 02/01/23 Discharging Provider: Dr Jhaveri Primary Care Provider: Dr Zuluaga Condition at Discharge: Serious Discharge Disposition: 01 Home, Self Care - HPI History of Present Illness: As per ER MD "82-year-old man presented to the ED with right eye vision loss and headache for the past 3 to 4 days. Her doctors at [facility] requested CT scan to evaluate for stroke. His exam is remarkable for isolated R eye vision loss, photophobia, and pain with eye movement, without increased intraocular pressure. CT head and cervical spine with angiography ordered. Lab work including cbc, abdominal panel, coags ordered as well. Anemia 10.6 stable from previous. Labwork otherwise unremarkable. CTA head/neck uncovered no acute pathology. We do not have MRI or Echo overnight. d/w patient and recommended d/w Dr. Fagan, [place] neurologist contact representative who recommends MRI head/neck and Echo. recommends continue asa 81 every other day, xarelto daily, and increasing back to 80 atorvastatin daily since he has been taking half dose (atorva 40) prior to this. ESR/CRP added to assess for possible giant cell arteritis, however patient is not experiencing extreme unilateral pain therefore this is less likely. [facility] pacer/defibrillator is MRI compatible per phone call Tian, our SURGICAL CODER had with Haritha at [facility] based on his pacemaker card info. plan to admit to observation for MRI/echo then have him discharged to f/u with his setter helper this Sunday. 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 Patient undergoing immunotherapy and was told by his cancer doc to come to ER because of vision "got worse in R eye". Patient denies any weakness, he is moving all 4 extrem, has rehuatism of spine, knee pain and walks with a cane, otherwise very active and sharp for his age. Also has hx of parosymal A fib has been on Xarelto and Asa QOD. He also takes Lipitor 40 mg along with micardis. He will be placed in Observation to have Echo and brain MRI. - HOSPITAL COURSE Hospital Course: 1) Stroke-like symptoms This patient's right eye vision was down to 20/200. It remained that way and everything was blurry during his entire stay here. Since this lasted for hours, it is not a TIA but more like stroke. Underwent an echocardiogram that showed normal LV and RV contractility, no intracardiac clot was seen. No bubble study was done (for unknown reason). Recommendation from the on-call Neurologist Dr Fagan at [facility], was to undergo a brain MRI, since his pacemaker is MRI-compatible. However, at [facility] we do not have the staff needed to have these pt's undergo an MRI, since pacemakers need to be adjusted (reprogrammed to a HR that is 20 beats higher than resting HR) with the specific pacer company software on their interrogator machines, and to have a bouffant curtain machine tender on standby, and then to reprogram the pacemaker back to its settings, after the MRI. I called Dr. Fagan and told him about this snag. Dr. Fagan said the patient needed to have his MRI done at a larger hospital that could accommodate him. Our product tester called Dr. Zuluaga, who would probably be ordering this brain MRI, done with the patient's Electrophysiology Sandstone Splitter, Dr. Kearney at [facility], and gave all the details to Dr. Zuluaga. He was discharged with recommendation to continue his anticoagulant daily and continue every other day baby aspirin, and to increase atorvastatin from 40 mg to 80 mg qpm. 2) Abnormal vision He was discharged on 02/01/2023 and had an appointment with an setter helper the very next day 02/02/2023, as an outpatient. He was told he is restricted from driving a vehicle. 3) Atrial fibrillation On telemetry, he had good heart rate control with his A-fib.Anticoagulation and his B-richard were continued. (4) Coronary artery disease Asa and statin were continued (5) Hypertension We continued his micardis (6) Prostate cancer On immunotherpay - ALLERGIES Allergies/Adverse Reactions: Allergies Allergy/AdvReac Type Severity Reaction Status Date / Time hydrocodone bitartrate * Allergy shakes, Verified 01/31/23 18:32 [From Vicodin] halucinasions - MEDICATIONS Home Medications: Ambulatory Orders Medication Instructions Recorded Confirmed Tamsulosin HCl [Flomax] 0.4 mg PO BID 01/16/14 01/31/23 Pantoprazole [Protonix] 40 mg PO DAILY 07/18/17 01/31/23 Metoprolol Tartrate 37.5 mg PO BID 07/15/19 01/31/23 Telmisartan [Micardis] 20 mg PO DAILY 07/15/19 01/31/23 Ipratropium/Albuterol [Combivent 1 puffs PO QID 02/25/20 01/31/23 Respimat] [place]-3/Dha/Epa/Fish Oil [Fish Oil 1 cap PO DAILY 02/25/20 02/01/23 1,000 mg Softgel] Rivaroxaban [Xarelto] 15 mg PO DAILY 02/25/20 01/31/23 Vit C/E/Zinc/Lutein/Zeaxanthin 1 tab PO DAILY 02/25/20 01/31/23 [Ocuvite Eye Health Gummies] Ipratropium [place] 1 spray NAYAN TID PRN 06/15/21 01/31/23 Aspirin Chewable [[facility] R 81 mg PO Q48H #15 tab 02/01/23 Aspirin] Atorvastatin Calcium 80 mg PO HS #60 tab 02/01/23 Cholecalciferol (Vitamin D3) 1 cap PO DAILY 02/01/23 02/01/23 [Vitamin D3] Ferrous Sulfate [Feosol] 1 tab PO DAILY 02/01/23 02/01/23 Magnesium Oxide 1 tab PO DAILY 02/01/23 02/01/23 Multivitamin with Minerals 1 tab PO DAILY 02/01/23 02/01/23 [Multivitamins with Minerals] - PHYSICAL EXAM AT DISCHARGE General Appearance: positive: No acute distress, Alert, Other (Male pattern baldness) Eyes Bilateral: positive: EOMI, Other (Extremely blurry and diminished vision in right eye) ENT: positive: No signs of dehydration Neck: positive: Nml inspection, No JVD Respiratory: positive: No respiratory distress Cardiovascular: positive: No murmur Abdomen: positive: Non-tender, No distention Skin: positive: Warm, Dry Extremities: positive: Non-tender, No pedal edema Neurologic/Psychiatric: positive: Oriented x3, Motor nml - LABS Result Diagrams: 02/01/23 05:35 02/01/23 05:35 - SEPSIS Current Stage of Sepsis: Ruled out - FOLLOW UP Follow Up: See Automatic Nailing Machine Operator tomorrow See PCP SATURNINO to get order and referral for brain MRI to be done with his EP Sandstone Splitter at [facility]. - TIME SPENT Time Spent in Discharge (Minutes): 30
[2023-02-01] MEDS ORDERED: ATORVASTATIN 40 MG TABLET PO SCH ×2 (21:00)
== END 2023-02-01 15:40 | disposition home or self-care (01) ==
LOC: ED 18:17 → MS2 22:36
PROVIDERS: ADMIT Internal Medicine; ATTEND Internal Medicine
DX: R51.9 Headache, unspecified (principal); H54.61 Unqualified visual loss, right eye, normal vision left eye; I25.810 Atherosclerosis of coronary artery bypass graft(s) without angina pectoris; I48.0 Paroxysmal atrial fibrillation; I10 Essential (primary) hypertension; C61 Malignant neoplasm of prostate; Z95.0 Presence of cardiac pacemaker; E11.9 Type 2 diabetes mellitus without complications; Z79.01 Long term (current) use of anticoagulants
CPT/HCPCS: 36415; 70496; 70498; 80048; 80053; 81003; 83690; 85025; 85610; 85651; 86140; 93306; 99284; 99285; A9270; G0378; Q9967; 81001; 87086

== ENCOUNTER 2023-05-26 16:45 | Emergency (ER) | payer MEDICARE, OTHER ==
[2023-05-26 17:39] LABS: BASOPHILS % (AUTO) 0.4 %; EOSINOPHILS # (AUTO) 0.1 10^3/uL (0.0-0.7); EOSINOPHILS % (AUTO) 1.8 %; HCT - HEMATOCRIT 27.9 % (42.0-52.0); HGB - HEMOGLOBIN 8.9 g/dL (14.0-18.0); LYMPHOCYTES # (AUTO) 0.7 10^3/uL (1.5-3.5); LYMPHOCYTES % (AUTO) 9.1 %; MEAN CORPUSCULAR HEMOGLOBIN 33.8 pg (27.0-31.0); MEAN CORPUSCULAR HGB CONC 31.9 g/dL (32.0-36.0); MEAN CORPUSCULAR VOLUME 106.1 fL (80.0-94.0); MEAN PLATELET VOLUME 9.3 fL (7.4-11.4); MONOCYTES # (AUTO) 0.7 10^3/uL (0.0-1.0); MONOCYTES % (AUTO) 9.1 %; NEUTROPHILS # (AUTO) 6.2 10^3/uL (1.5-6.6); NEUTROPHILS % (AUTO) 79.2 %; PLT - PLATELET COUNT 235 10^3/uL (130-450); RED BLOOD COUNT 2.63 10^6/uL (4.70-6.10); RED CELL DISTRIBUTION WIDTH 14.3 % (12.0-15.0); WHITE BLOOD COUNT 7.8 x10^3/uL (4.8-10.8)
[2023-05-26 17:53] LABS: ALBUMIN 4.1 g/dL (3.2-5.5); ALBUMIN/GLOBULIN RATIO 1.9 (1.0-2.2); BILIRUBIN,TOTAL 0.4 mg/dL (0.2-1.0); CALCIUM 9.3 mg/dL (8.5-10.3); TOTAL PROTEIN 6.3 g/dL (6.4-8.9)
[2023-05-26 17:58] LABS: BILIRUBIN,URINE NEGATIVE (NEGATIVE); GLUCOSE, URINE (UA) NEGATIVE (NEGATIVE); KETONES,URINE (UA) 15 mg/dL (NEGATIVE); LEUKOCYTE ESTERASE, URINE MODERATE (NEGATIVE); NITRITE,URINE POSITIVE (NEGATIVE); OCCULT BLOOD,URINE LARGE (NEGATIVE); PROTEIN,URINE >=300 mg/dL (NEGATIVE); UROBILINOGEN,URINE 2 E.U./dL (NORMAL)
[2023-05-26 18:01] LABS: CLARITY,URINE BLOODY (CLEAR)
--- NOTE | 2023-05-26 18:22 | ED Physician Documentation ---
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 This has been ongoing since May 06. He reports that at that time he stopped his Xarelto which she was taking for his history of atrial fibrillation. He reports he is attempted multiple times to get in contact with urology at [facility] but has been unable to get satisfactory return phone calls. Patient states that unless he drinks large volumes of water he is unable to urinate and he will pass large clots. A CT of the abdomen completed 8 days ago showed no abnormal wall thickening of the bladder. However a urinalysis completed on 16 May showed a urine that was mostly consistent with a UTI. It was nitrite positive more than 25 WBCs and moderate bacteria. It does not appear that this was treated. Review of Systems Cardiac: reports: Reviewed and negative Respiratory: reports: Reviewed and negative : reports: Dysuria, Hematuria PD PAST MEDICAL HISTORY - Past Medical History Cardiovascular: Hypertension, High cholesterol, Coronary artery disease, Atrial flutter, Atrial fibrillation Respiratory: Pneumonia Neuro: None Endocrine/Autoimmune: Type 2 diabetes GI: GERD, Chronic diarrhea : Benign prostate hypertrophy, Kidney stones HEENT: None Psych: Depression Musculoskeletal: Osteoarthritis, Fatigue, Chronic back pain Derm: Other - Past Surgical History Past Surgical History: Yes General: Cholecystectomy, Appendectomy Cardiovascular: Lobectomy, Other HEENT: Cataracts - Present Medications Home Medications: Ambulatory Orders Medication Instructions Recorded Confirmed Tamsulosin HCl [Flomax] 0.4 mg PO BID 01/16/14 04/04/23 Pantoprazole [Protonix] 40 mg PO DAILY 07/18/17 04/04/23 Metoprolol Tartrate 37.5 mg PO BID 07/15/19 04/04/23 Telmisartan [Micardis] 20 mg PO DAILY 07/15/19 04/04/23 Ipratropium/Albuterol [Combivent 1 puffs PO QID 02/25/20 04/04/23 Respimat] [place]-3/Dha/Epa/Fish Oil [Fish Oil 1 cap PO DAILY 02/25/20 04/04/23 1,000 mg Softgel] Rivaroxaban [Xarelto] 15 mg PO DAILY 02/25/20 04/04/23 Vit C/E/Zinc/Lutein/Zeaxanthin 1 tab PO DAILY 02/25/20 04/04/23 [Ocuvite Eye Health Gummies] Ipratropium [place] 1 spray NAYAN TID PRN 06/15/21 04/04/23 Aspirin Chewable [St Jose R 81 mg PO Q48H #15 tab 02/01/23 04/04/23 Aspirin] Cholecalciferol (Vitamin D3) 1 cap PO DAILY 02/01/23 04/04/23 [Vitamin D3] Ferrous Sulfate [Feosol] 1 tab PO DAILY 02/01/23 04/04/23 Magnesium Oxide 1 tab PO DAILY 02/01/23 04/04/23 Multivitamin with Minerals 1 tab PO DAILY 02/01/23 04/04/23 [Multivitamins with Minerals] Furosemide [Lasix] 40 mg PO DAILY 3 Days #3 tablet 02/21/23 04/04/23 Atorvastatin Calcium 40 mg PO HS 03/07/23 04/04/23 Cefpodoxime Proxetil [Vantin] 100 mg PO Q12H #20 tablet 05/26/23 - Allergies Allergies/Adverse Reactions: Allergies Allergy/AdvReac Type Severity Reaction Status Date / Time hydrocodone bitartrate * Allergy shaisaura, Verified 05/26/23 16:50 [From Vicodin] halucinasions - Social History Does the pt smoke?: No Smoking Status: Never smoker Does the pt drink ETOH?: No Does the pt have substance abuse?: No - Immunizations Immunizations are current?: Yes - POLST Patient has POLST: Yes PD ED PE NORMAL - General General: Alert and oriented X 3, No acute distress - HEENT HEENT: Atraumatic - Neck Neck: Supple, no meningeal sign - Cardiac Cardiac: RRR, No murmur - Respiratory Respiratory: No respiratory distress, Clear bilaterally - Abdomen Abdomen: Normal bowel sounds, Soft. No: Non tender (Mild suprapubic tenderness. No guarding or rebound. No flank or CVA tenderness.) Results - Vitals Vitals: Vital Signs - 24 hr 05/26/23 05/26/23 05/26/23 16:51 16:58 18:58 Temperature 36.7 C 36.7 C Heart Rate 96 96 72 Respiratory 20 20 16 Rate Blood Pressure 123/56 L 123/56 L 113/71 O2 Saturation 97 97 100 Oxygen O2 Source Room air - Labs Labs: Laboratory Tests 05/26/23 05/26/23 05/26/23 17:33 17:33 17:51 WBC 7.8 RBC 2.63 L Hgb 8.9 L Hct 27.9 L MCV 106.1 H MCH 33.8 H MCHC 31.9 L RDW 14.3 Plt Count 235 MPV 9.3 Neut # (Auto) 6.2 Lymph # (Auto) 0.7 L [place] # (Auto) 0.7 Eos # (Auto) 0.1 Baso # (Auto) 0.0 Absolute Nucleated RBC 0.00 Nucleated RBC % 0.0 Sodium 138 Potassium 4.0 Chloride 104 Carbon Dioxide 28 Anion Gap 6.0 BUN 22 H Creatinine 1.0 Estimated GFR (MDRD) 72 L Glucose 121 H Calcium 9.3 Total Bilirubin 0.4 AST 24 ALT 21 Alkaline Phosphatase 64 Total Protein 6.3 L Albumin 4.1 Globulin 2.2 Albumin/Globulin Ratio 1.9 Lipase 73 Urine Color RED/BLOODY Urine Clarity BLOODY Urine pH 7.0 Ur Specific [place] <=1.005 Urine Protein >=300 H Urine Glucose (UA) NEGATIVE Urine Ketones 15 H Urine Occult Blood LARGE H Urine Nitrite POSITIVE H Urine Bilirubin NEGATIVE Urine Urobilinogen 2 H Ur Leukocyte Esterase MODERATE H Urine RBC TNTC H Urine WBC 11-25 H Ur Squamous Epith Cells NONE SEEN Urine Bacteria Few Ur Microscopic Review INDICATED Urine Culture Comments INDICATED PD Medical Decision Making - ED course Complexity details: reviewed results, re-evaluated patient, d/w patient ED course: Positive but she is 82-year-old male presents emergency department for evaluation of hematuria dysuria and passing clots. Has been present since May 06. When this started he stopped his Xarelto. He was seen by the [facility] on [address] of the abdomen pelvis that showed no obvious pathology within the bladder wall. A urinalysis at that time however was consistent with urinary infection. Culture subsequently grew a kowalski sensitive E. coli. However he has not received antibiotics for this. He is attempted to call his urologist at [facility] multiple times but has failed to get proper follow- up. On presentation to the emergency department today he is alert and well- appearing. No tachycardia or hypotension. We did obtain CBC electrolytes and urinalysis. Per my interpretation he has a baseline essentially unchanged anemia with a hemoglobin of 8.9. As high as 10 in early February. BUN and creatinine are normal. His urinalysis today is consistent with acute cystitis given nitrite positive UA with many WBCs and a few bacteria. Culture is pending but given the recent culture I feel would be appropriate to treat for acute cystitis. He will be started on Vantin twice daily for the next 10 days. Clinically the patient does not have any signs of obstruction. Post void bladder scan showed a residual volume of only 17 mm. Given a recent fairly unremarkable CT of the abdomen 8 days ago I deferred advanced imaging today. I did attempt to follow-up with the urology at [facility] however I spoke with Dr. Chandra who is a locum's and stated he could not help get the patient follow-up in clinic this week therefore I communicated with the patient and he will try and call the office. I discussed with patient that he has been off his Xarelto for the last 2 weeks given the hematuria. If the hematuria should begin to resolve with the antibiotics it would be appropriate to resume the Xarelto. Usual emergent return precautions were discussed for worsening symptoms. Departure - Departure Disposition: Home, Self Care Clinical Impression: Acute cystitis with hematuria Hematuria Qualifiers: Hematuria type: gross Qualified Code(s): R31.0 - Gross hematuria Anemia Qualifiers: Anemia type: unspecified type Qualified Code(s): D64.9 - Anemia, unspecified Condition: Stable Record reviewed to determine appropriate education?: Yes Prescriptions: Cefpodoxime Proxetil [Vantin] 100 mg PO Q12H #20 tablet Comments: You were seen today because for the last 2 weeks you have been having bloody urine. Your urine today shows that you have an infection. This may be contributing to the blood. I have written a prescription for an antibiotic called Vantin or cefpodoxime. I sent it to the [email or web address] in [place]. You will take it twice daily for the next 10 days. Your initial dose was given tonight in the emergency department. Please call your urology office on Sunday to arrange prompt follow-up of this hematuria. If you find that the antibiotics begin to resolve the bloody urine you can resume taking your anticoagulant medication. However if the symptoms are not improving it is critical that you follow closely with your urology and teller manager. Return immediately to the ER for fevers, uncontrolled vomiting, inability to urinate or any other worrisome or worsening symptoms. Forms: PCP List
[2023-05-26 18:23] LABS: BACTERIA,URINE Few /HPF (None Seen); RBC,URINE TNTC /HPF (0-5); SQUAMOUS EPITHELIAL CELL,UR NONE SEEN (<= Few)
[2023-05-26] MEDS ORDERED: CEFPODOXIME PROXETIL 100 MG TABLET PO STA (19:40)
[2023-05-26 20:07] VITALS: BP 114/72; O2SAT 98
== END 2023-05-26 20:59 | disposition home or self-care (01) ==
LOC: ED 16:45
DX: N30.01 Acute cystitis with hematuria (principal); D64.9 Anemia, unspecified; I48.91 Unspecified atrial fibrillation
CPT/HCPCS: 36415; 51798; 80053; 81001; 83690; 85025; 87086; 87181; 99283; 99284; A9270; 81003

== ENCOUNTER 2023-07-04 10:10 | Outpatient (CLI) | payer MEDICARE, OTHER ==
[2023-07-04 10:31] LABS: CHOL/HDL RATIO 2.3 (<5.0); CHOLESTEROL 96 mg/dL; HDL CHOLESTEROL 41 mg/dL; LDL CHOLESTEROL,CALCULATED 26 mg/dL; LDL/HDL RATIO 0.6 (<3.6); TRIGLYCERIDES 146 mg/dL (48-352); VLDL CHOLESTEROL 29 mg/dL
[2023-07-04 10:58] LABS: ESTIMATED AVERAGE GLUCOSE 117 mg/dL (70-100); HEMOGLOBIN A1c% 5.7 % (4.27-6.07)
== END 2023-07-04 10:11 | disposition home or self-care (01) ==
LOC: LAB 10:10
PROVIDERS: ATTEND Internal Medicine
DX: E78.5 Hyperlipidemia, unspecified (principal); R73.03 Prediabetes
CPT/HCPCS: 36415; 80061; 83036; 83721

== ENCOUNTER 2023-11-15 13:48 | Outpatient (CLI) | payer MEDICARE, OTHER ==
--- NOTE | 2023-11-15 22:48 | XRAY Report ---
PROCEDURE: Chest 2V INDICATIONS: LUNG CANCER TECHNIQUE: 2 views of the chest were acquired. COMPARISON: CT chest 11/14/2023. FINDINGS: Surgical changes and devices: Right chest port catheter with distal tip projecting over the SVC. Med connie sternotomy wires. Dual lead left chest wall AICD device. Lungs and pleura: No pleural effusions. Small right pneumothorax is better visualized on recent CT . Lungs are clear. Mediastinum: Mediastinal contours appear normal. Heart size is normal. Bones and chest wall: No suspicious bony lesions. Overlying soft tissues appear unremarkable. IMPRESSION: Known right pneumothorax, better visualized on prior CT. . Reviewed by: Racquel Gomez MD, PhD on 11/15/2023 10:46 PM PDT Approved by: Racquel Gomez MD, PhD on 11/15/2023 10:46 PM PDT Station ID: [id number]
== END 2023-11-15 13:49 | disposition home or self-care (01) ==
LOC: DI 13:48
PROVIDERS: ATTEND Internal Medicine
DX: C34.90 Malignant neoplasm of unspecified part of unspecified bronchus or lung (principal); J93.9 Pneumothorax, unspecified; Z95.810 Presence of automatic (implantable) cardiac defibrillator

== ENCOUNTER 2023-11-19 12:48 | Emergency (ER) | payer MEDICARE, OTHER ==
--- NOTE | 2023-11-19 13:30 | ED Physician Documentation ---
PD HPI DYSPNEA - Stated complaint Stated Complaint: SOA - Chief complaint Chief Complaint: Resp - History obtained from History obtained from: Patient - Additional information Additional information: Patient presents for mild shortness of breath as well as possible confusion and hallucinations. Patient states he has felt mildly short of breath since last . Patient went for a CT scan of his chest on and was noted to have a new small anterior layering right pneumothorax without CT evidence of tension superimposed on his moderate emphysema and a and scattered postsurgical changes. His oncologist was contacted. The patient had a follow-up chest x-ray the next day which did not show marked expansion of the pneumothorax. He has been about the same since then. By reports the patient has been confused today and having visual hallucinations. The patient is quite concerned that there is a homeless encampment near his house and that he has been having to deal with rats which she describes as being very large and inside his house. Patient has no complaints of fever, productive cough, urinary symptoms. No abdominal pain. [facility] knows [facility] is Sunday in the first of the month. Patient states he does not have cancer anymore as "Mayo has cured me" Patient has history of stage IV squamous cell carcinoma of the lungs. He is getting Keytruda. Patient also has high risk prostate cancer Heide score of 9. He follows with Dr. Alston and oncology. Review of Systems Constitutional: denies: Fever, Chills Eyes: reports: Other (Possible visual hallucinations) Cardiac: denies: Chest pain / pressure Respiratory: reports: Dyspnea. denies: Cough GI: denies: Abdominal Pain, Nausea, Vomiting : denies: Dysuria, Frequency Skin: denies: Rash Musculoskeletal: denies: Neck pain Psychiatric: reports: Hallucinations, Delusions PD PAST MEDICAL HISTORY - Past Medical History Cardiovascular: Hypertension, High cholesterol, Coronary artery disease, Atrial flutter, Atrial fibrillation Respiratory: Pneumonia, Other (Stage IV squamous cell carcinoma of the lung) Neuro: None Endocrine/Autoimmune: Type 2 diabetes GI: GERD, Chronic diarrhea : Benign prostate hypertrophy, Kidney stones HEENT: None Psych: Depression Musculoskeletal: Osteoarthritis, Fatigue, Chronic back pain Derm: Other - Past Surgical History Past Surgical History: Yes General: Cholecystectomy, Appendectomy Cardiovascular: Lobectomy, Other HEENT: Cataracts - Present Medications Home Medications: Ambulatory Orders Medication Instructions Recorded Confirmed Tamsulosin HCl [Flomax] 0.4 mg PO BID 01/16/14 09/19/23 Pantoprazole [Protonix] 40 mg PO DAILY 07/18/17 09/19/23 Metoprolol Tartrate 37.5 mg PO BID 07/15/19 09/19/23 Telmisartan [Micardis] 20 mg PO DAILY 07/15/19 09/19/23 Ipratropium/Albuterol [Combivent 1 puffs PO QID 02/25/20 09/19/23 Respimat] [place]-3/Dha/Epa/Fish Oil [Fish Oil 1 cap PO DAILY 02/25/20 09/19/23 1,000 mg Softgel] Rivaroxaban [Xarelto] 15 mg PO DAILY 02/25/20 09/19/23 Vit C/E/Zinc/Lutein/Zeaxanthin 1 tab PO DAILY 02/25/20 09/19/23 [[facility]umm[facility]] Ipratropium [place] 1 spray NAYAN TID PRN 06/15/21 09/19/23 Aspirin Chewable [St Jose R 81 mg PO Q48H #15 tab 02/01/23 09/19/23 Aspirin] Cholecalciferol (Vitamin D3) 1 cap PO DAILY 02/01/23 09/19/23 [Vitamin D3] Ferrous Sulfate [Feosol] 1 tab PO DAILY 02/01/23 09/19/23 Magnesium Oxide 1 tab PO DAILY 02/01/23 09/19/23 Multivitamin with Minerals 1 tab PO DAILY 02/01/23 09/19/23 [Multivitamins with Minerals] Furosemide [Lasix] 40 mg PO DAILY 3 Days #3 tablet 02/21/23 09/19/23 Atorvastatin Calcium 40 mg PO HS 03/07/23 09/19/23 Cefpodoxime Proxetil [Vantin] 100 mg PO Q12H #20 tablet 05/26/23 09/19/23 - Allergies Allergies/Adverse Reactions: Allergies Allergy/AdvReac Type Severity Reaction Status Date / Time hydrocodone bitartrate * Allergy shakes, Verified 11/19/23 13:00 [From Vicodin] halucinasions - Social History Does the pt smoke?: No Smoking Status: Never smoker Does the pt drink ETOH?: No Does the pt have substance abuse?: No - Immunizations Immunizations are current?: Yes - POLST Patient has POLST: Yes PD ED PE NORMAL - General General: Alert and oriented X 3. No: No acute distress - HEENT HEENT: Atraumatic - Neck Neck: Supple, no meningeal sign - Cardiac Cardiac: RRR, No murmur - Respiratory Respiratory: Clear bilaterally. No: No respiratory distress - Abdomen Abdomen: Normal bowel sounds, Soft - Neuro Neuro: Alert and oriented X 3, head of strategy 2-12 intact, No motor deficit, No sensory deficit - Psych Psych: Normal mood Results - Vitals Vitals: Vital Signs - 24 hr 11/19/23 11/19/23 11/19/23 12:57 13:00 15:00 Temperature 36.2 C L 36.5 C Heart Rate 67 67 60 Respiratory 20 20 24 Rate Blood Pressure 148/59 H 148/59 H 140/60 H O2 Saturation 95 95 100 11/19/23 17:00 Temperature 36.8 C Heart Rate 60 Respiratory 24 Rate Blood Pressure 138/62 H O2 Saturation 100 Oxygen O2 Source Room air - EKG (time done) 1323 EKG releavant findings:: EKG personally interpreted by author of this note. Relevant findings are: Atrial paced complexes rate 72 occasional PVCs. No acute ischemia noted. Rate: Rate (enter#), Sarbjit, Tachy, Other - Labs Labs: Laboratory Tests 11/19/23 11/19/23 11/19/23 13:35 13:35 13:39 WBC 7.2 RBC 3.01 L Hgb 9.9 L Hct 31.2 L MCV 103.7 H MCH 32.9 H MCHC 31.7 L RDW 13.2 Plt Count 211 MPV 9.3 Neut # (Auto) 5.3 Lymph # (Auto) 0.9 L [place] # (Auto) 0.8 Eos # (Auto) 0.2 Baso # (Auto) 0.0 Absolute Nucleated RBC 0.00 Nucleated RBC % 0.0 Sodium 140 Potassium 4.6 H Chloride 107 Carbon Dioxide 27 Anion Gap 6.0 BUN 29 H Creatinine 1.1 Estimated GFR (MDRD) 64 L Glucose 114 H Calcium 9.4 Total Bilirubin 0.4 AST 18 ALT 16 Alkaline Phosphatase 75 Total Protein 6.2 L Albumin 4.0 Globulin 2.2 Albumin/Globulin Ratio 1.8 Urine Color YELLOW Urine Clarity CLEAR Urine pH 6.0 Ur Specific [place] 1.020 Urine Protein TRACE Urine Glucose (UA) NEGATIVE Urine Ketones NEGATIVE Urine Occult Blood TRACE-INTA Urine Nitrite NEGATIVE Urine Bilirubin NEGATIVE Urine Urobilinogen 0.2 (NORMAL) Ur Leukocyte Esterase NEGATIVE Ur Microscopic Review NOT INDICATED Urine Culture Comments NOT INDICATED - Rads (name of study) ct head with/without Relevant Findings:: Final report received (Atrophy and chronic ischemic change without hemorrhage, mass effect or mass lesion. ) cxr Relevant Findings:: Final report received, EMP independent interpretation of test (no enlarging PTX) PD Medical Decision Making - ED course ED course: Regarding his shortness of breath did repeat another chest x-ray and found him to have very stable, tiny pneumothorax. I note that his respiratory rate and O2 saturation are both quite stable. The patient is neurologically nonfocal. He has some concerns around possible infestation with rats at his house. Given his history of multiple primary cancers will check CT scan with contrast to exclude [employer] OPER[employer] CENTERLESS cause- this is normal. He has no sign of infection, normal white blood cell count, normal electrolytes, normal urine. No other cause for delirium evident. Regarding his pneumothorax since this is not enlarging would not intervene at this time. He has follow-up with his oncologist this week which seems quite appropriate. Departure - Departure Disposition: 01 Home, Self Care Clinical Impression: Pneumothorax on right Lung cancer Qualifiers: Laterality: unspecified laterality Lung location: unspecified part of lung Qualified Code(s): C34.90 - Malignant neoplasm of unspecified part of unspecified bronchus or lung Condition: Fair Follow-Up: PHILIP ALSTON MD [Provider Admit Priv/Credential] - Comments: Today your chest x-ray shows no increase in size of your pneumothorax (collapsed lung) this is a good thing. This appears to be quite stable. Regarding your apparent confusion, we checked for infection including urinary tract infection, electrolyte abnormalities and for a brain-based cause such as stroke or tumor and these are all normal. You can be safely followed up with your primary care physician. Follow-up your small, stable pneumothorax with your oncologist this week. Forms: PCP List
[2023-11-19 13:52] LABS: BASOPHILS % (AUTO) 0.3 %; EOSINOPHILS # (AUTO) 0.2 10^3/uL (0.0-0.7); EOSINOPHILS % (AUTO) 2.4 %; HCT - HEMATOCRIT 31.2 % (42.0-52.0); HGB - HEMOGLOBIN 9.9 g/dL (14.0-18.0); LYMPHOCYTES # (AUTO) 0.9 10^3/uL (1.5-3.5); LYMPHOCYTES % (AUTO) 12.9 %; MEAN CORPUSCULAR HEMOGLOBIN 32.9 pg (27.0-31.0); MEAN CORPUSCULAR HGB CONC 31.7 g/dL (32.0-36.0); MEAN CORPUSCULAR VOLUME 103.7 fL (80.0-94.0); MEAN PLATELET VOLUME 9.3 fL (7.4-11.4); MONOCYTES # (AUTO) 0.8 10^3/uL (0.0-1.0); MONOCYTES % (AUTO) 10.6 %; NEUTROPHILS # (AUTO) 5.3 10^3/uL (1.5-6.6); NEUTROPHILS % (AUTO) 73.4 %; PLT - PLATELET COUNT 211 10^3/uL (130-450); RED BLOOD COUNT 3.01 10^6/uL (4.70-6.10); RED CELL DISTRIBUTION WIDTH 13.2 % (12.0-15.0); WHITE BLOOD COUNT 7.2 x10^3/uL (4.8-10.8)
[2023-11-19 13:56] LABS: ALBUMIN/GLOBULIN RATIO 1.8 (1.0-2.2); BILIRUBIN,TOTAL 0.4 mg/dL (0.2-1.0); CALCIUM 9.4 mg/dL (8.5-10.3); CREATININE 1.1 mg/dL (0.6-1.3); POTASSIUM 4.6 mmol/L (3.5-4.5); TOTAL PROTEIN 6.2 g/dL (6.4-8.9)
[2023-11-19 14:09] LABS: BILIRUBIN,URINE NEGATIVE (NEGATIVE); CLARITY,URINE CLEAR (CLEAR); GLUCOSE, URINE (UA) NEGATIVE (NEGATIVE); KETONES,URINE (UA) NEGATIVE (NEGATIVE); LEUKOCYTE ESTERASE, URINE NEGATIVE (NEGATIVE); NITRITE,URINE NEGATIVE (NEGATIVE); OCCULT BLOOD,URINE TRACE-INTA (NEGATIVE); PROTEIN,URINE TRACE mg/dL (NEGATIVE); UROBILINOGEN,URINE 0.2 (NORMAL) E.U./dL (NORMAL)
--- NOTE | 2023-11-19 14:24 | XRAY Report ---
PROCEDURE: Chest 2V INDICATIONS: f/u pneumothorax TECHNIQUE: 2 views of the chest were acquired. COMPARISON: 11/15/2023. FINDINGS: Surgical changes and devices: Left chest wall pacemaker. Right chest wall Port-A-Cath. Median sterno diane wires. Right upper quadrant surgical clips. Lungs and pleura: Small right pneumothorax is similar appearance to prior. The lungs are otherwise c lear. No pleural effusions. Mediastinum: Mediastinal contours appear normal. Heart size is normal. Bones and chest wall: No suspicious bony lesions. Overlying soft tissues appear unremarkable. IMPRESSION: Stable appearance of small right apical pneumothorax. Reviewed by: Palmer Rivas MD on 11/19/2023 2:22 PM PDT Approved by: Palmer Rivas MD on 11/19/2023 2:22 PM PDT Station ID: [id number]
[2023-11-19] MEDS ORDERED: iohexoL-300 100 ML VIAL ONE (15:22)
[2023-11-19 15:30] VITALS: O2SAT 100
[2023-11-19] MEDS: iohexoL-300 100 ML VIAL IVP ONE (15:36)
[2023-11-19 17:30] VITALS: BP 138/62
--- NOTE | 2023-11-19 17:35 | CT Report ---
PROCEDURE: CT brain with and without contrast INDICATIONS: 83-year-old male with hallucinations and history of lung cancer TECHNIQUE: 4.5 mm thick angled axial sections acquired from the foramen magnum to the vertex before and after th e administration of intravenous contrast. For radiation dose reduction, the following was used: aut omated exposure control, adjustment of mA and/or kV according to patient size. CONTRAST: Omni 300 100ml COMPARISON: CT angiogram neck 01/31/2023 FINDINGS: Image quality: Excellent. CSF Spaces: Basal cisterns are patent. No extra-axial fluid collections. Ventricles are normal in size and shape. Brain: No midline shift. No intracranial bleeds or masses. No abnormal intracranial enhancement. Beck-white interface appears normal. Atrophy and mild white matter chronic ischemic change Skull and face: Calvarium and visualized facial bones appear intact, without suspicious lesions. Sinuses: Visualized sinuses and mastoids are clear. IMPRESSION: Atrophy and chronic ischemic change without hemorrhage, mass effect or mass lesion. Reviewed by: Zak Poole MD on 11/19/2023 4:34 PM RASHAD Approved by: Zak Poole MD on 11/19/2023 4:34 PM RASHAD Station ID: [id number]
== END 2023-11-19 18:20 | disposition home or self-care (01) ==
LOC: ED 12:48
DX: I10 Essential (primary) hypertension (principal); J93.9 Pneumothorax, unspecified; C34.90 Malignant neoplasm of unspecified part of unspecified bronchus or lung; E78.00 Pure hypercholesterolemia, unspecified; I25.10 Atherosclerotic heart disease of native coronary artery without angina pectoris; I48.91 Unspecified atrial fibrillation; I48.92 Unspecified atrial flutter; E11.9 Type 2 diabetes mellitus without complications; N40.0 Benign prostatic hyperplasia without lower urinary tract symptoms; Z87.442 Personal history of urinary calculi; Z79.01 Long term (current) use of anticoagulants; Z79.899 Other long term (current) drug therapy
CPT/HCPCS: 36415; 70470; 71046; 80053; 81003; 85025; 93005; 96374; 99284; Q9967; 81001; 87086

== ENCOUNTER 2023-11-28 08:25 | Outpatient (CLI) | payer MEDICARE, OTHER ==
--- NOTE | 2023-11-28 09:02 | XRAY Report ---
PROCEDURE: Chest 2V INDICATIONS: EVALUATE PNEUMOTHORAX/SHORTNESS OF BREATH TECHNIQUE: 2 views of the chest were acquired. COMPARISON: 11/19/2023 x-ray. FINDINGS: Surgical changes and devices: Left chest wall generator with cardiac leads. Sternotomy. Right chest wall port tip projects over the low SVC. Lungs and pleura: Stable small right apical pneumothorax, without evidence of tension. Mediastinum: Mediastinal contours appear normal. Heart size is normal. Bones and chest wall: No suspicious bony lesions. Overlying soft tissues appear unremarkable. IMPRESSION: Stable small right apical pneumothorax, without evidence of tension. Reviewed by: Neil Du MD on 11/28/2023 9:00 AM PDT Approved by: Neil Du MD on 11/28/2023 9:00 AM PDT Station ID: [id number]
== END 2023-11-28 08:26 | disposition home or self-care (01) ==
LOC: DI 08:25
PROVIDERS: ATTEND Internal Medicine
DX: J93.9 Pneumothorax, unspecified (principal); C34.90 Malignant neoplasm of unspecified part of unspecified bronchus or lung

== ENCOUNTER 2023-12-06 09:06 | Outpatient (CLI) | payer MEDICARE, OTHER ==
[2023-12-06 12:40] LABS: ESTIMATED AVERAGE GLUCOSE 131 mg/dL (70-100); HEMOGLOBIN A1c% 6.2 % (4.27-6.07)
[2023-12-06 12:44] LABS: CHOL/HDL RATIO 3.1 (<5.0); CHOLESTEROL 104 mg/dL; HDL CHOLESTEROL 34 mg/dL; LDL CHOLESTEROL,CALCULATED 30 mg/dL; LDL/HDL RATIO 0.9 (<3.6); TRIGLYCERIDES 202 mg/dL (48-352); VLDL CHOLESTEROL 40 mg/dL
[2023-12-06 17:52] LABS: BILIRUBIN,URINE NEGATIVE (NEGATIVE); GLUCOSE, URINE (UA) NEGATIVE (NEGATIVE); KETONES,URINE (UA) NEGATIVE (NEGATIVE); LEUKOCYTE ESTERASE, URINE NEGATIVE (NEGATIVE); NITRITE,URINE NEGATIVE (NEGATIVE); OCCULT BLOOD,URINE NEGATIVE (NEGATIVE); PH,URINE 5.5 PH (5.0-7.5); PROTEIN,URINE NEGATIVE (NEGATIVE); UROBILINOGEN,URINE 0.2 (NORMAL) E.U./dL (NORMAL)
[2023-12-06 17:58] LABS: CLARITY,URINE CLEAR (CLEAR)
== END 2023-12-06 09:07 | disposition home or self-care (01) ==
LOC: LAB.N 09:06
PROVIDERS: ATTEND Internal Medicine
DX: E78.5 Hyperlipidemia, unspecified (principal); R30.0 Dysuria; R73.03 Prediabetes
CPT/HCPCS: 36415; 80061; 81001; 81003; 83036; 83721; 87086

== ENCOUNTER 2023-12-13 13:00 | Outpatient (CLI) | payer MEDICARE, OTHER | END 2023-12-13 13:01 | disposition home or self-care (01) | LOC: LAB.N 13:00 | PROVIDERS: ATTEND Specialist | DX: Z08 Encounter for follow-up examination after completed treatment for malignant neoplasm (principal); Z85.46 Personal history of malignant neoplasm of prostate | CPT/HCPCS: 36415; 84153 ==

== ENCOUNTER → 2024-01-02 | Outpatient (CLI) | payer MEDICARE, OTHER | LOC: PC 08:00 | PROVIDERS: ATTEND Nurse Practitioner Adult Health | DX: Z51.5 Encounter for palliative care (principal); C34.90 Malignant neoplasm of unspecified part of unspecified bronchus or lung; M54.89 Other dorsalgia; R41.89 Other symptoms and signs involving cognitive functions and awareness; F43.20 Adjustment disorder, unspecified; G89.29 Other chronic pain; R53.83 Other fatigue; I10 Essential (primary) hypertension; I48.91 Unspecified atrial fibrillation; Z85.46 Personal history of malignant neoplasm of prostate; F32.A Depression, unspecified | CPT/HCPCS: 99214 ==

== ENCOUNTER 2024-01-10 13:38 | Outpatient (CLI) | payer MEDICARE, OTHER | END 2024-01-10 23:59 | disposition critical access hospital (66) | LOC: EMS 13:38 | DX: R22.0 Localized swelling, mass and lump, head (principal); R68.84 Jaw pain | CPT/HCPCS: A0425; A0429 ==

== ENCOUNTER 2024-01-16 11:05 | Outpatient (CLI) | payer MEDICARE, OTHER | END 2024-01-16 23:59 | disposition critical access hospital (66) | LOC: EMS 11:05 | DX: R19.7 Diarrhea, unspecified (principal) | CPT/HCPCS: A0425; A0429 ==

== ENCOUNTER 2024-01-16 11:39 | Emergency (ER) | payer MEDICARE, OTHER ==
--- NOTE | 2024-01-16 12:01 | ED Physician Documentation ---
PD HPI ABD PAIN - Stated complaint Stated Complaint: DIARRHEA - Chief complaint Chief Complaint: Abd Pain - History obtained from History obtained from: Patient - Additional information Additional information: 83-year-old male With history of non-small cell lung cancerpresents with frequent diarrhea for the past 3 days after starting on a antibiotic for salivary gland infection. Salivary gland infection is improving but he started having frequent diarrhea between 2009 and 20 times a day, watery diarrhea which started after taking the Augmentin. He denies any nausea or vomiting, no fever. He has a "gurgly" abdomen but no pain or distention. He denies any dysuria urgency or frequency. The diarrhea is actually somewhat slowed down today, the patient has been taking Imodium [id number] "like candy," without any improvement until today. Patient is also getting soreness on his buttocks. He states it started with a small sore but since he has been going to the bathroom so frequently the soreness has spread. He is active at home, ambulatory, does not sit in 1 position for long period. Review of Systems Constitutional: reports: Reviewed and negative Cardiac: reports: Reviewed and negative Respiratory: reports: Reviewed and negative GI: reports: Diarrhea. denies: Abdominal Pain, Abdominal Swelling, Nausea, Vomiting, Constipation, Bloody / black stool : reports: Reviewed and negative Skin: reports: Reviewed and negative Musculoskeletal: reports: Reviewed and negative PD PAST MEDICAL HISTORY - Past Medical History Past Medical History: Yes Cardiovascular: Hypertension, High cholesterol, Coronary artery disease, Atrial flutter, Atrial fibrillation Respiratory: Pneumonia, Other Neuro: None Endocrine/Autoimmune: Type 2 diabetes GI: GERD, Chronic diarrhea : Benign prostate hypertrophy, Kidney stones HEENT: None Psych: Depression Musculoskeletal: Osteoarthritis, Fatigue, Chronic back pain Derm: Other - Past Surgical History Past Surgical History: Yes General: Cholecystectomy, Appendectomy Cardiovascular: CABG, AICD, Lobectomy, Other HEENT: Cataracts - Present Medications Home Medications: Ambulatory Orders Medication Instructions Recorded Confirmed Tamsulosin HCl [Flomax] 0.4 mg PO BID 01/16/14 01/10/24 Pantoprazole [Protonix] 40 mg PO DAILY 07/18/17 01/10/24 Metoprolol Tartrate 37.5 mg PO BID 07/15/19 01/10/24 Telmisartan [Micardis] 20 mg PO DAILY 07/15/19 01/10/24 Ipratropium/Albuterol [Combivent 1 puffs PO QID 02/25/20 01/10/24 Respimat] [place]-3/Dha/Epa/Fish Oil [Fish Oil 1 cap PO DAILY 02/25/20 01/10/24 1,000 mg Softgel] Rivaroxaban [Xarelto] 15 mg PO DAILY 02/25/20 01/10/24 Vit C/E/Zinc/Lutein/Zeaxanthin 1 tab PO DAILY 02/25/20 01/10/24 [Ocuvite Eye Health Gummies] Ipratropium [place] 1 spray NAYAN TID PRN 06/15/21 01/10/24 Aspirin Chewable [St [place] R 81 mg PO Q48H #15 tab 02/01/23 01/10/24 Aspirin] Cholecalciferol (Vitamin D3) 1 cap PO DAILY 02/01/23 01/10/24 [Vitamin D3] Ferrous Sulfate [Feosol] 1 tab PO DAILY 02/01/23 01/10/24 Magnesium Oxide 1 tab PO DAILY 02/01/23 01/10/24 Multivitamin with Minerals 1 tab PO DAILY 02/01/23 01/10/24 [Multivitamins with Minerals] Furosemide [Lasix] 40 mg PO DAILY 3 Days #3 tablet 02/21/23 01/10/24 Atorvastatin Calcium 40 mg PO HS 03/07/23 01/10/24 Amox/Clav 875/125 [Augmentin] 1 each PO Q12H #20 tablet 01/10/24 - Allergies Allergies/Adverse Reactions: Allergies Allergy/AdvReac Type Severity Reaction Status Date / Time hydrocodone bitartrate * Allergy shaisaura, Verified 01/16/24 11:47 [From Vicodin] halucinasions - Social History Does the pt smoke?: No Smoking Status: Never smoker Does the pt drink ETOH?: No Does the pt have substance abuse?: No - Immunizations Immunizations are current?: Yes - POLST Patient has POLST: Yes PD ED PE NORMAL - Vitals Vital signs reviewed: Yes - General General: Alert and oriented X 3, No acute distress, Well developed/nourished - HEENT HEENT: Atraumatic, Moist mucous membranes - Cardiac Cardiac: RRR, No murmur - Respiratory Respiratory: No respiratory distress, Clear bilaterally - Abdomen Abdomen: Normal bowel sounds, Soft, Non tender, Non distended, No organomegaly - Back Back: No CVA TTP, No spinal TTP - Derm Derm: Normal color, Warm and dry, No rash Results - Vitals Vitals: Vital Signs - 24 hr 01/16/24 01/16/24 01/16/24 11:47 13:58 15:14 Temperature 36.6 C Heart Rate 77 78 59 L Respiratory 17 14 19 Rate Blood Pressure 147/57 H 126/90 H 126/90 H O2 Saturation 93 92 91 L Oxygen O2 Source Room air - Labs Labs: Laboratory Tests 01/16/24 01/16/24 01/16/24 12:11 12:11 12:11 WBC 9.3 RBC 3.11 L Hgb 10.1 L Hct 31.7 L MCV 101.9 H MCH 32.5 H MCHC 31.9 L RDW 12.4 Plt Count 207 MPV 9.1 Neut # (Auto) 7.9 H Lymph # (Auto) 0.5 L Garza # (Auto) 0.7 Eos # (Auto) 0.1 Baso # (Auto) 0.0 Absolute Nucleated RBC 0.00 Nucleated RBC % 0.0 Sodium 142 Potassium 4.0 Chloride 106 Carbon Dioxide 29 Anion Gap 7.0 BUN 24 H Creatinine 1.0 Estimated GFR (MDRD) 72 L Glucose 134 H Calcium 9.4 Magnesium 1.7 Total Bilirubin 0.6 AST 20 ALT 17 Alkaline Phosphatase 65 Total Protein 6.4 Albumin 4.1 Globulin 2.3 Albumin/Globulin Ratio 1.8 Lipase 40 Urine Color Urine Clarity Urine pH Ur Specific [place] Urine Protein Urine Glucose (UA) Urine Ketones Urine Occult Blood Urine Nitrite Urine Bilirubin Urine Urobilinogen Ur Leukocyte Esterase Urine RBC Urine WBC Ur Squamous Epith Cells Urine Bacteria Urine Mucus Ur Microscopic Review Urine Culture Comments 01/16/24 13:40 WBC RBC Hgb Hct MCV MCH MCHC RDW Plt Count MPV Neut # (Auto) Lymph # (Auto) Garza # (Auto) Eos # (Auto) Baso # (Auto) Absolute Nucleated RBC Nucleated RBC % Sodium Potassium Chloride Carbon Dioxide Anion Gap BUN Creatinine Estimated GFR (MDRD) Glucose Calcium Magnesium Total Bilirubin AST ALT Alkaline Phosphatase Total Protein Albumin Globulin Albumin/Globulin Ratio Lipase Urine Color YELLOW Urine Clarity CLEAR Urine pH 5.5 Ur Specific [place] >=1.030 H Urine Protein 100 H Urine Glucose (UA) NEGATIVE Urine Ketones TRACE Urine Occult Blood NEGATIVE Urine Nitrite NEGATIVE Urine Bilirubin NEGATIVE Urine Urobilinogen 0.2 (NORMAL) Ur Leukocyte Esterase NEGATIVE Urine RBC 0-5 Urine WBC 0-3 Ur Squamous Epith Cells FEW Squamous Urine Bacteria None Seen Urine Mucus Few Strands Ur Microscopic Review INDICATED Urine Culture Comments NOT INDICATED PD Medical Decision Making - ED course Complexity details: reviewed old records, reviewed results, re-evaluated patient, considered differential, d/w patient ED course: This is a very nice 83-year-old gentleman with a past oblique assist above who presented with multiple episodes of diarrhea for the last several days after starting on Augmentin. The patient has no abdominal pain with this, no nausea or vomiting, no fever. He is well-appearing here on physical exam, afebrile and nontoxic. The diarrhea has actually slowed somewhat today and I Suspect this is antibiotic induced diarrhea though I did consider C. difficile or an infectious gastroenteritis in the differential. We collected lab work which showed reassuring, stable CBC and CMP as a stated above, urinalysis negative for signs of infection, I did order C. difficile however patient was not able to submit a stool sample here. As the patient has a soft abdomen and reassuring lab work and physical exam, I think less likely to be a colitis or diverticulitis and I did not pursue any imaging today. I discussed with patient that I recommend he start on a prebiotic, and increase fiber in his diet, symptoms likely to improve as he comes off the Augmentin a few days, but advised to return if he develops a fever, abdominal pain or no improvement in his diarrhea. We also noted that he has some ulcerations to his buttocks. This is likely due to increased wiping and therefore we reviewed supportive measures for this including using a wet cloth or unscented baby wipes to wipe the area gently and then apply Desitin barrier cream to the area and ensure that he is not sitting in 1 position for more than an hour at a time. These are not infected at this time but need close monitoring to ensure that they do not worsen. Patient encouraged to follow-up with his primary doctor this week to check in on symptoms and return questions reviewed in detail. Departure - Departure Disposition: 01 Home, Self Care Clinical Impression: Diarrhea Qualifiers: Diarrhea type: unspecified type Qualified Code(s): R19.7 - Diarrhea, unspecified Condition: Good Instructions: ED Pressure Injury, ED Diet Vomiting Diarrhea Comments: Rakesh, your diarrhea is likely due to starting an antibiotic. It seems to be slowly improving. Your lab work today is stable and you have no signs of infection or urinary tract infection. Please try to stay well-hydrated, and increase the fiber in your diet, probiotics sometimes help with antibiotic induced diarrhea as well. The diarrhea should improve as you finish up the antibiotics. If you develop a fever or increasing pain, please return to the ER. For your buttocks ulceration, use a wet washcloth over unscented baby wipes to clean the area and apply the Desitin ointment frequently to protect the skin. Forms: PCP List Discharge Date/Time: 01/16/24 14:50
[2024-01-16 12:17] LABS: BASOPHILS % (AUTO) 0.3 %; EOSINOPHILS # (AUTO) 0.1 10^3/uL (0.0-0.7); EOSINOPHILS % (AUTO) 0.9 %; HCT - HEMATOCRIT 31.7 % (42.0-52.0); HGB - HEMOGLOBIN 10.1 g/dL (14.0-18.0); LYMPHOCYTES # (AUTO) 0.5 10^3/uL (1.5-3.5); LYMPHOCYTES % (AUTO) 5.8 %; MEAN CORPUSCULAR HEMOGLOBIN 32.5 pg (27.0-31.0); MEAN CORPUSCULAR HGB CONC 31.9 g/dL (32.0-36.0); MEAN CORPUSCULAR VOLUME 101.9 fL (80.0-94.0); MEAN PLATELET VOLUME 9.1 fL (7.4-11.4); MONOCYTES # (AUTO) 0.7 10^3/uL (0.0-1.0); NEUTROPHILS # (AUTO) 7.9 10^3/uL (1.5-6.6); NEUTROPHILS % (AUTO) 84.7 %; PLT - PLATELET COUNT 207 10^3/uL (130-450); RED BLOOD COUNT 3.11 10^6/uL (4.70-6.10); RED CELL DISTRIBUTION WIDTH 12.4 % (12.0-15.0); WHITE BLOOD COUNT 9.3 x10^3/uL (4.8-10.8)
[2024-01-16 12:36] LABS: ALBUMIN 4.1 g/dL (3.2-5.5); ALBUMIN/GLOBULIN RATIO 1.8 (1.0-2.2); BILIRUBIN,TOTAL 0.6 mg/dL (0.2-1.0); CALCIUM 9.4 mg/dL (8.5-10.3); TOTAL PROTEIN 6.4 g/dL (6.4-8.9)
[2024-01-16 13:50] LABS: BILIRUBIN,URINE NEGATIVE (NEGATIVE); GLUCOSE, URINE (UA) NEGATIVE (NEGATIVE); KETONES,URINE (UA) TRACE mg/dL (NEGATIVE); LEUKOCYTE ESTERASE, URINE NEGATIVE (NEGATIVE); NITRITE,URINE NEGATIVE (NEGATIVE); OCCULT BLOOD,URINE NEGATIVE (NEGATIVE); PH,URINE 5.5 PH (5.0-7.5); PROTEIN,URINE 100 mg/dL (NEGATIVE); UROBILINOGEN,URINE 0.2 (NORMAL) E.U./dL (NORMAL)
[2024-01-16 13:54] LABS: CLARITY,URINE CLEAR (CLEAR)
[2024-01-16 14:02] VITALS: BP 126/90
[2024-01-16 14:10] LABS: RBC,URINE 0-5 /HPF (0-5); SQUAMOUS EPITHELIAL CELL,UR FEW Squamous (<= Few); WBC,URINE 0-3 /HPF (0-3)
[2024-01-16 14:11] LABS: BACTERIA,URINE None Seen /HPF (None Seen); MUCUS,URINE Few Strands
[2024-01-16 15:25] VITALS: O2SAT 91
== END 2024-01-16 14:50 | disposition home or self-care (01) ==
LOC: EDUNIT# → ED 11:39
DX: R19.7 Diarrhea, unspecified (principal); I10 Essential (primary) hypertension; E78.00 Pure hypercholesterolemia, unspecified; I48.91 Unspecified atrial fibrillation; I25.810 Atherosclerosis of coronary artery bypass graft(s) without angina pectoris; Z95.1 Presence of aortocoronary bypass graft; Z79.82 Long term (current) use of aspirin; Z79.899 Other long term (current) drug therapy
CPT/HCPCS: 36415; 80053; 81001; 81003; 83690; 83735; 85025; 87086; 99283

== ENCOUNTER 2024-02-20 08:00 | Outpatient (CLI) | payer MEDICARE, OTHER | END 2024-02-20 23:59 | disposition home or self-care (01) | LOC: PC 08:00 | PROVIDERS: ATTEND Nurse Practitioner Adult Health | DX: Z51.5 Encounter for palliative care (principal); F43.20 Adjustment disorder, unspecified; R41.89 Other symptoms and signs involving cognitive functions and awareness; M47.816 Spondylosis without myelopathy or radiculopathy, lumbar region; I10 Essential (primary) hypertension; C34.12 Malignant neoplasm of upper lobe, left bronchus or lung; C77.1 Secondary and unspecified malignant neoplasm of intrathoracic lymph nodes; G89.29 Other chronic pain; Z71.89 Other specified counseling | CPT/HCPCS: 99215 ==

== ENCOUNTER 2024-04-22 11:45 | Outpatient (CLI) | payer MEDICARE, OTHER | END 2024-04-22 23:59 | disposition home or self-care (01) | LOC: PC 11:45 | PROVIDERS: ATTEND Nurse Practitioner Adult Health | DX: Z51.5 Encounter for palliative care (principal); C34.12 Malignant neoplasm of upper lobe, left bronchus or lung; C61 Malignant neoplasm of prostate; C77.1 Secondary and unspecified malignant neoplasm of intrathoracic lymph nodes; R41.89 Other symptoms and signs involving cognitive functions and awareness; F43.20 Adjustment disorder, unspecified; L89.312 Pressure ulcer of right buttock, stage 2; G89.29 Other chronic pain; M54.9 Dorsalgia, unspecified; Z63.4 Disappearance and death of family member; Z71.89 Other specified counseling; Z79.899 Other long term (current) drug therapy; Z85.118 Personal history of other malignant neoplasm of bronchus and lung | CPT/HCPCS: 99215 ==